=== PATIENT | female | born 1950 | race Caucasian/White ===

== ENCOUNTER 2018-03-26 08:45 | Emergency (ER) | payer MEDICARE, OTHER, SELFPAY ==
[2018-03-26 08:46] VITALS: BP 179/76; PULSE 83; RESP 18; TEMP 36.5; O2SAT 97; BMI 37.8
--- NOTE | 2018-03-26 08:56 | EKG12_ITS ---
Test Reason : PALPS Blood Pressure : / mmHG Vent. Rate : 080 BPM Atrial Rate : 080 BPM P-R Int : 146 ms QRS Dur : 108 ms QT Int : 388 ms P-R-T Axes : 055 000 031 degrees QTc Int : 447 ms Normal sinus rhythm Low voltage QRS (LIMB LEADS) Confirmed by DELFINA LAM, ANNA ([id number]), food expeditor RUTH HENSLEY ([id number]) on 03/29/2018 2:36:33 PM Referred By: VIRGINIE Confirmed By:ANNA MATHIS MD
--- NOTE | 2018-03-26 08:56 | RAD_ITS ---
STUDY: X-RAY CHEST REASON FOR EXAM: Female, 67 years old. Shortness of breath TECHNIQUE: Single AP portable view of the chest. COMPARISON: None. FINDINGS: There are monitoring devices. There are left lower lung increased densities with small pleural effusion. There is right midlung granuloma. There is borderline cardiomegaly. Normal mediastinum and bertrand. Normal visualized pulmonary arteries. Normal visualized aortic arch and descending thoracic aorta. Normal visualized thoracic spine. Normal visualized ribs, clavicles, and shoulders. There is no demonstrated abnormality of the visualized soft tissue structures of the upper abdomen. RAD/Chest 1 View (Portable) IMPRESSION: Left lower lung infiltrate and effusion. Electronically Signed: Juanjo Benitez MD at 9:24 EDT , Service support ,
--- NOTE | 2018-03-26 09:00 | ED.VISSUMM ---
- ER Visit Summary Date of Service: 03/26/18 Chief Complaint: Palpitations, anxiety History of Present Illness: The patient is a 67 F with history of anxiety and palpitations presents to the emergency department with increasing symptoms. Patient states that she has been under significant amount of stress lately. She has macular degeneration and had injections in her eye a few months ago. She ended up with a complicated course with infection. She had been traveling back and forth to the [facility] for treatment. She was on high-dose prednisone until about 3 weeks ago. After that stopped, the patient developed shingles on her back. She has finished antivirals. She was having some increasing pain in her primary care started her on some tramadol. She also recently resumed Zoloft 2 days ago and had her levothyroxine increased. She states since increasing this and starting the Zoloft, she is having increasing heart palpitations. She has no chest pain. She denies dyspnea. She has no orthopnea. She denies any other systemic symptoms. Physical Examination: Vital signs reviewed General: Well-nourished, well-developed Head: Normocephalic, atraumatic Eyes: Pupils equal and reactive, extraocular muscles intact Neck, supple, no lymphadenopathy Heart: Regular rate and rhythm Respiratory: No distress, clear bilaterally Abdomen: Soft, nontender, nondistended, no peritoneal signs Back: Nontender Extremities: Nontender, no edema, no cords Skin: Normal color no rash Neuro: Alert and oriented, no focal or lateralizing deficits Test Results: [] Emergency Department Course and Treatment: The patient presents with symptomatic palpitations. I do feel that this is likely secondary to her increased medication both the Zoloft and the Synthroid. EKG shows normal sinus rhythm without acute ischemic change. There is no prolonged QT or WW. I did obtain a chest x-ray which was read is concerning for a left lower lobe infiltrate with effusion. I did discuss this with the patient. She has had no cough or shortness of breath. She has had 3 months of left-sided rib pain after sneezing. With this, I did obtain a CTA of her chest to rule out malignancy. This does show multiple nodules and bronchiectasis, but no pneumonia, no blood clot, no mass, or other dangerous process. I did enrollment counselor the patient that she is going to need follow-up for her lung nodules with likely repeat x-ray and will need to follow-up with primary care. She did have a few PVCs on the monitor, but they were not prolonged. Patient is resting comfortably. I do feel that she is safe for outpatient therapy. Treatment Plan: [] Disposition: Discharge Impression: 1. Symptomatic palpitations 2. Granulomatous lung disease This note was generated with [employer] dictation software. It may contain incorrect words, spelling, and punctuation that were not noted in review of the chart prior to signing ED Disposition - Plan for ED Patient: Chief Complaint: Palpitations Instructions: ED Palpitations Referrals: Darion Serrano MD [Primary Care Provider] -
--- NOTE | 2018-03-26 09:01 | NURSING ---
NO LW OR POA
[2018-03-26] MEDS: 0.9% Normal Saline 1,000 ML 1000 ML IV (09:10)
[2018-03-26 09:17] LABS: Absolute Lymphocyte Count 1.35 X10^3/ul (0.83-4.51); Absolute Neutrophil Count 4.4 X10^3/uL (2.0-7.7); Basophil# 0.03 X10^3/uL; Basophil% 0.5 % (0-1); Eosinophil# 0.04 X10^3/uL; Eosinophils% 0.6 % (0-5); Hematocrit 40.1 % (37-47); Hemoglobin 13.5 g/dl (12.0-15.0); Lymphocyte # 1.35 X10^3/ul (4.0); Lymphocyte % 21.4 % (19-41); Mean Corp Hgb Conc 33.7 g/gl (32-36); Mean Corpuscular Hgb 30.4 pg (27.0-32.0); Mean Corpuscular Volume 90.3 fL (81-99); Mean Platelet Vol. 9.6 fl (6.2-12.0); Monocyte# 0.49 X10^3/uL; Monocyte% 7.8 % (0-10); Neutrophil # 4.39 X10^3/uL (2.7-7.7); Neutrophil % 69.5 % (47-70); Platelet Count 262 K/mm3 (150-450); RBC Distribution Width CV 15.8 % (11.6-14.6); RBC Distribution Width SD 51.8 fl (35.1-43.9); Red Blood Count 4.44 M/mm3 (4.2-5.4); White Blood Count 6.3 K/mm3 (4.4-11.0)
[2018-03-26 09:22] LABS: POSITIVE COUNT NO; POSITIVE DIFFERENTIAL NO; POSITIVE MORPHOLOGY NO
--- NOTE | 2018-03-26 09:34 | CT_ITS ---
STUDY: CTA CHEST REASON FOR EXAM: Female, 67 years old. Palpitations. Rheumatoid arthritis. History of breast cancer with lumpectomy and radiation. RADIATION DOSAGE (If Supplied By Facility): CTDIvol = ( 12.96 ) mGy, DLP = ( 502.51 ) mGycm TECHNIQUE: The examination was performed with the intravenous administration of 100CC ml of Isovue 370 contrast material. Post-processing of the angiographic images was performed, with multiplanar reformation and 3D reconstruction. Individualized dose optimization techniques were used for this CT. COMPARISON: Chest x-ray. FINDINGS: Normal enhancement of the main pulmonary artery and right and left pulmonary arteries. Normal enhancement of the bilateral peripheral pulmonary arteries. There is no demonstrated pulmonary embolism. Normal thoracic aorta and visualized great vessels. There is no demonstrated aortic dissection. Normal heart and pericardium. Normal mediastinum. There are calcified right hilar lymph nodes. Normal visualized trachea and bronchi. The lungs are well expanded. There bronchiectasis with regions of the mid and lower lungs. There are patchy right mid and left lower lung opacities. There are calcified granulomas in the right upper, middle, and lower lobes. There is 0.5 cm noncalcified right lower lobe nodule , series 2 image 97/212. There is 0.5 cm subpleural nodule at the right upper lung, series 2 image 175/212. There is 0.5 cm right upper lobe nodule, series 2 image 161/212. There is 0.4 cm right upper lobe nodule, series 2 image 127/212. There is pleural fibrotic scarring of the left costophrenic angle. Postoperative change of the right breast. Normal osseous structures. Normal visualized upper abdomen. CT/CTA Chest W/WO Contrast IMPRESSION: CTA chest examination, without a demonstrated pulmonary embolism or arterial dissection. Granulomatous calcifications and noncalcified nodules in the right lung. Bronchiectasis with right mid and left lower lung infiltrates or atelectasis. Electronically Signed: Juanjo Benitez MD at 10:37 EDT , Service support ,
[2018-03-26 09:40] LABS: ALB/GLOB Ratio 0.8 RATIO (0.9-2.4); AST(SGOT) 25 U/L (15-37); Alanine Aminotransfer ALT/SGPT 23 U/L (13-56); Albumin, Serum 3.3 g/dL (3.2-5.0); Alkaline Phosphatase 128 U/L (45-117); Anion Gap 6 (5-15); BUN 9 mg/dL (7-18); BUN/Creat Ratio 12.2 RATIO (10-20); Calcium,Total 8.8 mg/dL (8.5-10.1); Chloride 106 mmol/L (98-107); Creatinine, Serum 0.74 mg/dL (0.55-1.02); EST Glomerular Filtration Rate 83 mL/min (>60); Est Glom Filt Rate - Afr Amer 100 mL/min (>60); Estimated Creatinine Clearance 38.14 ml/min; Glucose 101 mg/dL (74-106); Potassium 4.1 mmol/L (3.5-5.1); Protein, Total 7.3 g/dL (6.4-8.2); Sodium Level 139 mmol/L (136-145); Thyroid Stim Hormone (TSH) 2.84 uIU/mL (0.358-3.74)
[2018-03-26 11:00] VITALS: BP 165/80; PULSE 80; PULSE 88; RESP 14; O2SAT 99
== END 2018-03-26 11:01 | disposition home or self-care (01) ==
PROVIDERS: Emergency Provider Emergency Medicine
DX: R00.2 Palpitations (principal); I49.3 Ventricular premature depolarization; J98.4 Other disorders of lung; H35.30 Unspecified macular degeneration; F41.9 Anxiety disorder, unspecified; Z79.899 Other long term (current) drug therapy
CPT/HCPCS: 71045; 71275; 80053; 84443; 84484; 85025; 93005; 99284; J7030; Q9967; A4216

== ENCOUNTER → 2021-02-10 10:19 | Outpatient (CLI) | payer MEDICARE, OTHER, SELFPAY ==
--- NOTE | 2021-02-10 10:27 | RAD_ITS ---
STUDY: X-RAY CHEST REASON FOR EXAM: Female, 70 years old. Pain TECHNIQUE: PA and lateral views of the chest. COMPARISON: 03/26/18 FINDINGS: The lungs are clear and expanded. There may be a small left pleural effusion and/or atelectasis. There is elevation of the left hemidiaphragm. Normal size heart. Normal mediastinum and bertrand. Normal visualized pulmonary arteries. Normal visualized aortic arch and descending thoracic aorta. Normal visualized thoracic spine. Normal visualized ribs, clavicles, and shoulders. There is no demonstrated abnormality of the visualized soft tissue structures of the upper abdomen. RAD/Chest PA and Lateral IMPRESSION: There may be a small left pleural effusion and/or atelectasis. The lungs are clear. Electronically Signed: Faraz Renteria MD at 15:02 EDT Tel , Service support ,
[2021-02-10 12:33] LABS: Erythrocyte Sedimentation Rate 14 mm/hr (0-30)
[2021-02-10 12:34] LABS: Absolute Neutrophil Count 4.6 X10^3/uL (2.0-7.7); Basophil# 0.06 X10^3/uL; Basophil% 0.9 % (0-1); Eosinophil# 0.08 X10^3/uL; Eosinophils% 1.2 % (0-5); Hematocrit 43.5 % (37-47); Hemoglobin 13.8 g/dL (12.0-15.0); Mean Corp Hgb Conc 31.7 g/dL (32-36); Mean Corpuscular Hgb 30.5 pg (27.0-32.0); Mean Corpuscular Volume 96.2 fL (81-99); Monocyte# 0.46 X10^3/uL; Monocyte% 6.9 % (0-10); NRBC Flagged by Analyzer 0 % (0-5); Neutrophil # 4.64 X10^3/uL (2.7-7.7); Neutrophil % 69.7 % (47-70); Platelet Count 305 K/mm3 (150-450); RBC Distribution Width CV 13.6 % (11.6-14.6); RBC Distribution Width SD 47.7 fl (35.1-43.9); Red Blood Count 4.52 M/mm3 (4.2-5.4); White Blood Count 6.7 K/mm3 (4.4-11.0)
[2021-02-10 12:44] LABS: ALB/GLOB Ratio 0.9 RATIO (0.9-2.4); AST(SGOT) 23 U/L (15-37); Alanine Aminotransfer ALT/SGPT 15 U/L (13-56); Albumin, Serum 3.6 g/dL (3.2-5.0); Alkaline Phosphatase 115 U/L (45-117); Anion Gap 8 (5-15); BUN 11 mg/dL (7-18); BUN/Creat Ratio 15.3 RATIO (10-20); CRP 5.17 mg/L (0.0-3.0); Calcium,Total 9.1 mg/dL (8.5-10.1); Chloride 106 mmol/L (98-107); Creatinine, Serum 0.72 mg/dL (0.55-1.02); EST Glomerular Filtration Rate 85 mL/min (>60); Est Glom Filt Rate - Afr Amer 102 mL/min (>60); Globulin 3.8 g/dL (2.2-4.2); Glucose 84 mg/dL (74-106); Potassium 3.9 mmol/L (3.5-5.1); Protein, Total 7.4 g/dL (6.4-8.2); Sodium Level 141 mmol/L (136-145)
[2021-02-10 13:09] LABS: Hepatitis B Surface Antibody Non-Reactive; Hepatitis B Surface Antigen Non-Reactive (Nonreactive); Hepatitis C Antibody Non-Reactive (Nonreactive)
[2021-02-11 17:05] LABS: ANTINUCLEAR ANTIBODIES DIRECT Positive (Negative)
[2021-02-14 20:08] LABS: QNTFERON TB Mitogen Value > 10.00 IU/mL (.); QNTFERON TB1+ Ag Value 0.24 IU/mL (.); QNTFERON TB2+ Ag Value 0.14 IU/mL (.)
[2021-02-14 20:41] LABS: CCP IgG Antibodies 240 units (0-19); QNTIFERON TB Positive Criteria Negative (Negative)
== END ==
PROVIDERS: Referring Provider Internal Medicine Rheumatology; Visit Provider Internal Medicine Rheumatology
DX: M05.79 Rheumatoid arthritis with rheumatoid factor of multiple sites without organ or systems involvement (principal); M79.7 Fibromyalgia; M17.0 Bilateral primary osteoarthritis of knee; M21.41 Flat foot [pes planus] (acquired), right foot; M47.892 Other spondylosis, cervical region; H35.30 Unspecified macular degeneration; E03.9 Hypothyroidism, unspecified; Z79.899 Other long term (current) drug therapy
CPT/HCPCS: 36415; 71046; 80053; 85025; 85652; 86038; 86140; 86200; 86431; 86480; 86706; 86803; 87340

== ENCOUNTER 2021-03-08 13:48 | Emergency (ER) | payer MEDICARE, OTHER, SELFPAY ==
[2021-03-08 13:49] VITALS: BP 159/99; PULSE 101; RESP 20; TEMP 36.3; O2SAT 95; BMI 40.4
--- NOTE | 2021-03-08 14:14 | EKG12_ITS ---
Test Reason : CP Blood Pressure : / mmHG Vent. Rate : 094 BPM Atrial Rate : 098 BPM P-R Int : 144 ms QRS Dur : 106 ms QT Int : 352 ms P-R-T Axes : 042 -12 025 degrees QTc Int : 440 ms Sinus rhythm with Premature atrial complexes Otherwise normal ECG Confirmed by DELFINA LAM, ANNA ([id number]), assignment desk editor FABIO STARR ([id number]) on 03/11/2021 11:12:37 AM Referred By: CHAU Confirmed By:ANNA MATHIS MD
--- NOTE | 2021-03-08 14:14 | CT_ITS ---
STUDY: CT ABDOMEN AND PELVIS WITH CONTRAST REASON FOR EXAM: Female, 70 years old. epigastric pain RADIATION DOSAGE (If Supplied By Facility): CTDIvol = ( 15.75 ) mGy, DLP = ( 1844.65 ) mGycm TECHNIQUE: Transaxial images were obtained from the dome of the diaphragm to the symphysis pubis without oral contrast. IV 100ML ISOVUE 370 was administered. Sagittal and coronal images were reconstructed. Individualized dose optimization techniques were used for this CT. COMPARISON: None. FINDINGS: Limited views through the lower chest show mild fibrotic changes in the lungs. A few scattered pulmonary nodules no larger than a few millimeters, are stable since previous exam. Normal liver. There is non-visualization of the gallbladder, which may be secondary to either contraction or a prior cholecystectomy. There are multiple benign calcified granulomata of the spleen. There is diffuse atrophy of the pancreas. Normal bilateral adrenal glands. No acute abnormalities of the kidneys. Both kidneys are mildly to moderately small consistent with chronic atrophy. No hydronephrosis. No stones. Bilateral probable parapelvic cysts. Evaluation of the GI tract is limited by absence of oral contrast. Cannot exclude stomach wall thickening. No dilated loops of bowel or evidence for obstruction. Cannot exclude segmental thickening of the faith of the small or large bowel. Cannot exclude enteritis or colitis. Moderate diffuse fecal retention. Diverticulosis without definite diverticulitis. Appendix within normal limits. Normal abdominal aorta. Normal inferior vena cava. Normal retroperitoneum. Normal urinary bladder. There is atrophy of the uterus. There is a 10 cm fluid density mass in the pelvis to the left of midline consistent with ovarian/adnexal cyst. Suggest further evaluation with pelvic ultrasound. Normal abdominal wall. There are diffuse degenerative changes of the visualized lumbar spine. 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 Suggest pelvic ultrasound for further evaluation. No other acute abnormalities. Evaluation of the GI tract is limited without oral contrast, neither enteritis or colitis excluded. Probable [id number] chronic renal atrophy. Electronically Signed: Aj Underwood MD at 16:51 EDT , Service support ,
--- NOTE | 2021-03-08 14:16 | EDS_ITS ---
HPI HPI - GI History of Present Illness Chief Complaint: Chest Pain Informant: patient Abdominal Pain/Flank Pain Onset: - (4 years) Context: Sudden Onset (seems random) Timing: Intermittent and Lasts (3-4 min) Quality: - (tightness) Location: Epigastric (w/ radiation into both shoulders/upper back) Current Severity: Mild Maximum Severity: Moderate Worsened by: Nothing Relieved by: Nothing Nausea/Vomiting/Emesis GI Symptom: Negative for Nausea and Vomiting Diarrhea/Melena/Hematochezia GI Symptom: Negative for Diarrhea, Melena and Hematochezia Associated Symptoms Associated Symptoms: Negative for Dysuria, Frequency and Hematuria Narrative Narrative: Patient states she has been having episodes of 3 or 4 minutes of epigastric discomfort for the last 4 years. She states in the past week it has become more frequent significantly but not different. Not associated with eating or nausea/vomiting. She had a remote cholecystectomy. She states she also noticed that 4 years ago she remembers having an episode where she sneezed really hard and felt some sharp pains in her left upper quadrant suddenly, that radiated to her left shoulder. She cannot remember temporally how this related to the current symptoms. She also notes that she recently had a chest x-ray done by one of her doctors as a screening x-ray that happened to show a pleural effusion and she was not given any other information about it. [facility] Medical History (Updated 03/08/21 @ 18:[address] Juanjo Galvin MD) Anxiety Hypothyroidism Rheumatoid arthritis Home Medications Ciprofloxacin 0.3% 1 drp RIGHT EYE 4X/DAY 03/26/18 [History Last Taken Unknown] levothyroxine 125 mcg PO DAILY 03/26/18 [History Last Taken Unknown] lorazepam 1 mg PO TID PRN PRN 03/26/18 [History Last Taken Unknown] prednisoLONE eye drops (1 mL) 1 drp RIGHT EYE 4X/DAY 03/26/18 [History Last Ta scarlett Unknown] tramadol 100 mg PO Q4H PRN PRN 03/26/18 [History Last Taken Unknown] Allergy/AdvReac Type Severity Reaction Status Date / Time No Known Allergies Allergy Verified 03/08/21 13:48 Surgical History History of cholecystectomy Social History Smoking Status: Never smoker ROS ROS ED Constitutional Constitutional ED: Denies chills or fever(s) Eyes Eyes: Denies change in vision or diplopia ENT ENT ED: Denies rhinorrhea or sore throat Cardiovascular Cardiovascular: Denies chest pain or palpitations Respiratory/Chest Respiratory/Chest: Denies cough or dyspnea Gastrointestinal Gastrointestinal: Reports abdominal pain; Denies diarrhea, melena, nausea or vomiting Genitourinary Genitourinary ED: Denies dysuria or hematuria Musculoskeletal Musculoskeletal: Reports back pain; Denies neck pain Integumentary Denies abscess or rash Neurologic Neurologic: Denies headache(s), paresthesias or weakness Psychiatric Psychiatric: Denies anxiety or suicidal thoughts EXAM Physical Exam Const Vital Signs: 03/08/21 13:49 03/08/21 18:00 Temperature 97.4 F L Temperature Source Temporal Pulse Rate 101 H 75 Respiratory Rate 20 H 16 Blood Pressure 159/99 H 136/72 H Blood Pressure Mean 119 93 Pulse Ox 95 97 Oxygen Delivery Method Room Air Room Air Positive well nourished and well developed General Appearance ED: well developed and NAD HEENT Reports moist mucous membranes normocephalic and atraumatic Eyes PERRL and EOMs intact bilaterally Neck full ROM and supple Resp normal respiratory effort and clear to auscultation bilaterally Cardio regular rate, regular rhythm and no murmurs GI non-distended Auscultation: normoactive bowel sounds Palpation: soft and tender epigastric (mild) and LUQ (mild); Negative for guarding, hernia or rebound tenderness present Back/Spine no CVA tenderness General Back: other FROM Extremity normal to inspection Extremity Narrative: Severe ulnar deviation at the metacarpophalangeal joints of both hands General Extremety ED: Negative for edema, pulses abnormal or tenderness General Extremity: Negative for edema or pulses abnormal Neuro oriented x3, CN's II-XII intact bilaterally and no sensory deficits noted Sensorium / Orientation: awake and alert Motor Exam: strength 5/5 throughout Skin no rashes or lesions noted and no wounds Rashes: no rashes MDM MDM MDM Narrative Medical decision making narrative: Patient states she had history of a pleural effusion that was found for unknown reasons, as well as these nonspecific abdominal symptoms. The abdominal symptoms sound functional, but given her age and the pleural effusion she describes, I obtained a CT. It shows a 10 cm cystic mass in the pelvis just left of midline which could be consistent with an adnexal etiology/cyst. Patient states she has a history of ovarian cysts in the past and [facility] here in [place]. Interestingly, on CT here, it shows no pleural effusion. However I did discuss with the patient possibility that this could represent a malignancy and the need for close outpatient follow-up. I discussed with the enterprise account executive on- call for her practice, she is in agreement, and the patient will follow up closely after the weekend. Of note, radiology recommended ultrasound. That service is not available at the hospital at the hour that the patient is here right now. More, do I think the patient has ovarian torsion as she has no pain in this area nor tenderness. Furthermore, it is unknown if her chronically recurring and worsening upper abdominal symptoms are related to this or not. Lab Data Attestation: I reviewed the patient's lab results. Labs: Laboratory Results - last 24 hr 03/08/21 03/08/21 03/08/21 14:10 14:30 14:30 WBC 6.9 RBC 4.49 Hgb 13.8 Hct 42.7 MCV 95.1 MCH 30.7 MCHC 32.3 RDW Std Deviation 47.4 H RDW Coeff of Jena 13.6 Plt Count 265 MPV 10.3 Immature Gran % (Auto) 0.300 Neut % (Auto) 79.5 H Lymph % (Auto) 14.4 L [place] % (Auto) 4.5 Eos % (Auto) 0.6 Baso % (Auto) 0.7 Absolute Neuts (auto) 5.5 Absolute Lymphs (auto) 1.00 Nucleated RBC % 0 Sodium 139 Potassium 3.8 Chloride 108 H Carbon Dioxide 27.0 Anion Gap 4 L BUN 12 Creatinine 0.78 Estim Creat Clear Calc 36.53 Est GFR (MDRD) Af Amer 93 Est GFR (MDRD) Non-Af 77 BUN/Creatinine Ratio 15.3 Glucose 111 H Calcium 8.8 Total Bilirubin 0.70 AST 19 ALT 19 Alkaline Phosphatase 101 Troponin I < 0.015 Total Protein 7.1 Albumin 3.3 Globulin 3.8 Albumin/Globulin Ratio 0.9 Lipase 53 L TSH Urine Color Yellow Urine Clarity Clear Urine pH 6.0 Ur Specific [place] 1.010 Urine Protein Negative Urine Glucose (UA) Normal Urine Ketones Negative Urine Occult Blood Negative Urine Nitrite Negative Urine Bilirubin Negative Urine Urobilinogen Normal Ur Leukocyte Esterase Negative Urine RBC 0 SEEN Urine WBC 0 SEEN Ur Squamous Epith Cells 0-5 SEEN Urine Bacteria 0 SEEN Urine Mucus 0 SEEN 03/08/21 14:30 WBC RBC Hgb Hct MCV MCH MCHC RDW Std Deviation RDW Coeff of Jena Plt Count MPV Immature Gran % (Auto) Neut % (Auto) Lymph % (Auto) [place] % (Auto) Eos % (Auto) Baso % (Auto) Absolute Neuts (auto) Absolute Lymphs (auto) Nucleated RBC % Sodium Potassium Chloride Carbon Dioxide Anion Gap BUN Creatinine Estim Creat Clear Calc Est GFR (MDRD) Af Amer Est GFR (MDRD) Non-Af BUN/Creatinine Ratio Glucose Calcium Total Bilirubin AST ALT Alkaline Phosphatase Troponin I Total Protein Albumin Globulin Albumin/Globulin Ratio Lipase TSH 4.24 H Urine Color Urine Clarity Urine pH Ur Specific [place] Urine Protein Urine Glucose (UA) Urine Ketones Urine Occult Blood Urine Nitrite Urine Bilirubin Urine Urobilinogen Ur Leukocyte Esterase Urine RBC Urine WBC Ur Squamous Epith Cells Urine Bacteria Urine Mucus Radiography Diagnostic Testing: Radiology Impression Abdomen/Pelvis CT 03/08/21 14:14 IMPRESSION: 10 cm probable left DRY CAN TENDER cystic mass. Suggest pelvic ultrasound for further evaluation. No other acute abnormalities. Evaluation of the GI tract is limited without oral contrast, neither enteritis or colitis excluded. Probable [id number] chronic renal atrophy. Electronically Signed: Aj Underwood MD at 16:51 EDT , Service support , EKG Initial EKG: Attestation: I personally reviewed and interpreted this EKG as follows: Interpretation: Sinus Rhythm and No Acute Injury Pattern Discharge Plan Triage Chief Complaint: Chest Pain ED Provider: Juanjo Galvin Dx/Rx/DC Orders Clinical Impression: Intermittent epigastric abdominal pain, Ovarian cyst, left Instructions: ED Ovarian Cyst, ED Epigastric Pain (Uncertain Cause) Prescriptions: No Action tramadol 50 MG tablet 100 mg PO Q4H PRN PRN (Reason: Pain) RF: 0 levothyroxine 125 MCG tablet 125 mcg PO DAILY RF: 0 lorazepam 1 MG tablet 1 mg PO TID PRN PRN (Reason: Anxiety) RF: 0 Ciprofloxacin 0.3% 1 DROP 1 drp Right Eye 4X/DAY RF: 0 prednisoLONE eye drops (1 mL) 1 DROP 1 drp Right Eye 4X/DAY RF: 0 Primary Care Provider: Td Garcia NP Referrals: [facility] [employer] [facility] [place] [Provider Group] - 2 Days (Call for appointment on Wednesday, they will get you in [place]) Td Garcia MANAGER PULMONARY, MANAGER PULMONARY-C [Primary Care Provider] - Disposition Disposition: Home, self care
[2021-03-08 14:38] LABS: Bacteria 0 SEEN /hpf (None Seen); Color, Urine Yellow (Yellow); Glucose, Dipstick Normal (Normal); Ketone-Dipstick Negative (Negative); Leukocyte Esterase-Dipstick Negative /ul (Negative); Mucous, Urine 0 SEEN /hpf (<or=2+); Nitrite-Dipstick Negative (Negative); Occult Blood-Urine Negative /ul (Negative); Protein-Dipstick Negative (Negative); Red Blood Cells-Urine 0 SEEN /hpf (0-5); Urine Bilirubin Dipstick Negative (Negative); Urine Clarity Clear (Clear); Urine Urobilinogen Normal (Normal); White Blood Cells 0 SEEN /hpf (0-5)
[2021-03-08 14:38] LABS: Absolute Neutrophil Count 5.5 X10^3/uL (2.0-7.7); Basophil# 0.05 X10^3/uL; Basophil% 0.7 % (0-1); Eosinophil# 0.04 X10^3/uL; Eosinophils% 0.6 % (0-5); Hematocrit 42.7 % (37-47); Hemoglobin 13.8 g/dL (12.0-15.0); Lymphocyte % 14.4 % (19-41); Mean Corp Hgb Conc 32.3 g/dL (32-36); Mean Corpuscular Hgb 30.7 pg (27.0-32.0); Mean Corpuscular Volume 95.1 fL (81-99); Mean Platelet Vol. 10.3 fl (6.2-12.0); Monocyte# 0.31 X10^3/uL; Monocyte% 4.5 % (0-10); NRBC Flagged by Analyzer 0 % (0-5); Neutrophil # 5.52 X10^3/uL (2.7-7.7); Neutrophil % 79.5 % (47-70); Platelet Count 265 K/mm3 (150-450); RBC Distribution Width CV 13.6 % (11.6-14.6); RBC Distribution Width SD 47.4 fl (35.1-43.9); Red Blood Count 4.49 M/mm3 (4.2-5.4); White Blood Count 6.9 K/mm3 (4.4-11.0)
[2021-03-08] MEDS: Dicyclomine 10 MG Capsule 20 MG PO (14:41)
[2021-03-08] MEDS: 0.9% Normal Saline 1,000 ML 1000 ML IV (14:42)
[2021-03-08 14:44] LABS: Squamous Epithelial Cells - UA 0-5 SEEN /hpf (5-10)
[2021-03-08 14:59] LABS: ALB/GLOB Ratio 0.9 RATIO (0.9-2.4); AST(SGOT) 19 U/L (15-37); Alanine Aminotransfer ALT/SGPT 19 U/L (13-56); Albumin, Serum 3.3 g/dL (3.2-5.0); Alkaline Phosphatase 101 U/L (45-117); Anion Gap 4 (5-15); BUN 12 mg/dL (7-18); BUN/Creat Ratio 15.3 RATIO (10-20); Calcium,Total 8.8 mg/dL (8.5-10.1); Chloride 108 mmol/L (98-107); Creatinine, Serum 0.78 mg/dL (0.55-1.02); EST Glomerular Filtration Rate 77 mL/min (>60); Est Glom Filt Rate - Afr Amer 93 mL/min (>60); Estimated Creatinine Clearance 36.53 ml/min; Globulin 3.8 g/dL (2.2-4.2); Glucose 111 mg/dL (74-106); Lipase 53 U/L (73-393); Potassium 3.8 mmol/L (3.5-5.1); Protein, Total 7.1 g/dL (6.4-8.2); Sodium Level 139 mmol/L (136-145)
[2021-03-08 17:15] LABS: Thyroid Stim Hormone (TSH) 4.24 uIU/mL (0.358-3.74)
[2021-03-08 18:00] VITALS: BP 136/72; PULSE 75; RESP 16; O2SAT 97
== END 2021-03-08 18:57 | disposition home or self-care (01) ==
PROVIDERS: Emergency Provider Emergency Medicine; PCP Nurse Practitioner Family
DX: R10.13 Epigastric pain (principal); N83.202 Unspecified ovarian cyst, left side; R07.9 Chest pain, unspecified; M06.9 Rheumatoid arthritis, unspecified; E03.9 Hypothyroidism, unspecified; F41.9 Anxiety disorder, unspecified; Z79.890 Hormone replacement therapy; Z79.899 Other long term (current) drug therapy; Z90.49 Acquired absence of other specified parts of digestive tract
CPT/HCPCS: 74177; 80053; 81001; 83690; 84443; 84484; 85025; 93005; 96360; 99284; J7030; Q9967; A4216

== ENCOUNTER → 2021-04-22 10:34 | Outpatient (CLI) | payer MEDICARE, OTHER, SELFPAY ==
[2021-04-22 12:33] LABS: Absolute Lymphocyte Count 1.33 X10^3/uL (0.83-4.51); Absolute Neutrophil Count 4.5 X10^3/uL (2.0-7.7); Basophil# 0.06 X10^3/uL; Basophil% 0.9 % (0-1); Eosinophil# 0.15 X10^3/uL; Eosinophils% 2.3 % (0-5); Hematocrit 39.3 % (37-47); Hemoglobin 12.5 g/dL (12.0-15.0); Lymphocyte # 1.33 X10^3/ul (0.83-4.51); Lymphocyte % 20.1 % (19-41); Mean Corp Hgb Conc 31.8 g/dL (32-36); Mean Corpuscular Hgb 31.5 pg (27.0-32.0); Monocyte# 0.51 X10^3/uL; Monocyte% 7.7 % (0-10); NRBC Flagged by Analyzer 0 % (0-5); Neutrophil # 4.54 X10^3/uL (2.7-7.7); Neutrophil % 68.7 % (47-70); Platelet Count 257 K/mm3 (150-450); RBC Distribution Width CV 14.9 % (11.6-14.6); RBC Distribution Width SD 53.5 fl (35.1-43.9); Red Blood Count 3.97 M/mm3 (4.2-5.4); White Blood Count 6.6 K/mm3 (4.4-11.0)
[2021-04-22 12:44] LABS: ALB/GLOB Ratio 0.9 RATIO (0.9-2.4); AST(SGOT) 20 U/L (15-37); Alanine Aminotransfer ALT/SGPT 20 U/L (13-56); Albumin, Serum 3.4 g/dL (3.2-5.0); Alkaline Phosphatase 97 U/L (45-117); Anion Gap 6 (5-15); BUN 20 mg/dL (7-18); BUN/Creat Ratio 23.6 RATIO (10-20); Calcium,Total 8.9 mg/dL (8.5-10.1); Chloride 107 mmol/L (98-107); Creatinine, Serum 0.85 mg/dL (0.55-1.02); EST Glomerular Filtration Rate 70 mL/min (>60); Est Glom Filt Rate - Afr Amer 85 mL/min (>60); Globulin 3.6 g/dL (2.2-4.2); Glucose 80 mg/dL (74-106); Potassium 4.4 mmol/L (3.5-5.1); Sodium Level 139 mmol/L (136-145)
== END ==
PROVIDERS: PCP Nurse Practitioner Family; Referring Provider Internal Medicine Rheumatology; Visit Provider Internal Medicine Rheumatology
DX: M05.79 Rheumatoid arthritis with rheumatoid factor of multiple sites without organ or systems involvement (principal); M79.7 Fibromyalgia; M17.0 Bilateral primary osteoarthritis of knee; M21.41 Flat foot [pes planus] (acquired), right foot; M21.42 Flat foot [pes planus] (acquired), left foot; M47.892 Other spondylosis, cervical region; H35.30 Unspecified macular degeneration; E03.9 Hypothyroidism, unspecified; Z79.899 Other long term (current) drug therapy; Z85.3 Personal history of malignant neoplasm of breast
CPT/HCPCS: 36415; 80053; 85025

== ENCOUNTER → 2021-07-09 09:47 | Outpatient (CLI) | payer MEDICARE, OTHER, SELFPAY ==
[2021-07-09 12:17] LABS: Absolute Lymphocyte Count 1.26 X10^3/uL (0.83-4.51); Absolute Neutrophil Count 4.3 X10^3/uL (2.0-7.7); Basophil# 0.03 X10^3/uL; Basophil% 0.5 % (0-1); Eosinophil# 0.11 X10^3/uL; Eosinophils% 1.8 % (0-5); Hematocrit 41.2 % (37-47); Hemoglobin 13.4 g/dL (12.0-15.0); Lymphocyte # 1.26 X10^3/ul (0.83-4.51); Lymphocyte % 20.5 % (19-41); Mean Corp Hgb Conc 32.5 g/dL (32-36); Mean Corpuscular Hgb 32.5 pg (27.0-32.0); Mean Platelet Vol. 11.3 fl (6.2-12.0); Monocyte% 6.5 % (0-10); NRBC Flagged by Analyzer 0 % (0-5); Neutrophil # 4.32 X10^3/uL (2.7-7.7); Neutrophil % 70.4 % (47-70); Platelet Count 268 K/mm3 (150-450); RBC Distribution Width CV 14.4 % (11.6-14.6); RBC Distribution Width SD 51.8 fl (35.1-43.9); Red Blood Count 4.12 M/mm3 (4.2-5.4); White Blood Count 6.1 K/mm3 (4.4-11.0)
[2021-07-09 12:47] LABS: ALB/GLOB Ratio 0.9 RATIO (0.9-2.4); AST(SGOT) 46 U/L (15-37); Alanine Aminotransfer ALT/SGPT 27 U/L (13-56); Albumin, Serum 3.5 g/dL (3.2-5.0); Alkaline Phosphatase 107 U/L (45-117); Anion Gap 6 (5-15); BUN 14 mg/dL (7-18); BUN/Creat Ratio 17.4 RATIO (10-20); Chloride 106 mmol/L (98-107); Creatinine, Serum 0.81 mg/dL (0.55-1.02); EST Glomerular Filtration Rate 74 mL/min (>60); Est Glom Filt Rate - Afr Amer 90 mL/min (>60); Globulin 4.1 g/dL (2.2-4.2); Glucose 85 mg/dL (74-106); Potassium 4.8 mmol/L (3.5-5.1); Protein, Total 7.6 g/dL (6.4-8.2); Sodium Level 138 mmol/L (136-145)
== END ==
PROVIDERS: PCP Nurse Practitioner Family; Referring Provider Internal Medicine Rheumatology; Visit Provider Internal Medicine Rheumatology
DX: M05.79 Rheumatoid arthritis with rheumatoid factor of multiple sites without organ or systems involvement (principal); Z79.899 Other long term (current) drug therapy; M79.7 Fibromyalgia; M17.0 Bilateral primary osteoarthritis of knee; M21.41 Flat foot [pes planus] (acquired), right foot; M47.892 Other spondylosis, cervical region; H35.30 Unspecified macular degeneration; E03.9 Hypothyroidism, unspecified; Z85.3 Personal history of malignant neoplasm of breast
CPT/HCPCS: 36415; 80053; 85025

== ENCOUNTER → 2021-08-07 09:09 | Outpatient (CLI) | payer MEDICARE, OTHER, SELFPAY ==
--- NOTE | 2021-08-07 09:17 | US_ITS ---
STUDY: ABDOMINAL ULTRASOUND - RIGHT UPPER QUADRANT REASON FOR VISIT: Female, 71 years old ELEVATED LIVER ENZYMES TECHNIQUE: Ultrasound evaluation of the right upper quadrant was performed with real-time and static praod-scale imaging. TECHNICAL QUALITY: Adequate. COMPARISON: None. FINDINGS: Liver: The liver measures 15.3 cm. There is normal echogenicity of the liver. The bile ducts are within normal limits. There is hepatic color flow. The direction of portal flow is hepatopetal. There is no demonstrated mass lesion. Gallbladder: The patient is status post cholecystectomy. Common Bile Duct (C.B.D.): The common bile duct measures 3.1 mm. Pancreas: There is diffuse atrophy of the pancreas. There is increased echogenicity of the pancreas. There is no demonstrated pancreatic mass or cyst. Right Kidney: There is atrophy of the right kidney. The right kidney measures 8.7 cm x 4.6 cm x 4.1 cm. There is thinning of the renal cortex. The right cortex measures 0.7 cm. There is no demonstrated renal mass or cyst. There is no right hydronephrosis. US/Liver IMPRESSION: Atrophy of the pancreas. Atrophic changes of the right kidney. Electronically Signed: Thaddeus Palacios MD at 12:34 EDT , Service support ,
[2021-08-07 10:50] LABS: ALB/GLOB Ratio 0.8 RATIO (0.9-2.4); AST(SGOT) 16 U/L (15-37); Alanine Aminotransfer ALT/SGPT 19 U/L (13-56); Albumin, Serum 3.2 g/dL (3.2-5.0); Alkaline Phosphatase 106 U/L (45-117); Anion Gap 4 (5-15); BUN 14 mg/dL (7-18); BUN/Creat Ratio 17.6 RATIO (10-20); Calcium,Total 8.9 mg/dL (8.5-10.1); Chloride 108 mmol/L (98-107); EST Glomerular Filtration Rate 75 mL/min (>60); Est Glom Filt Rate - Afr Amer 91 mL/min (>60); Globulin 3.9 g/dL (2.2-4.2); Glucose 91 mg/dL (74-106); Potassium 3.9 mmol/L (3.5-5.1); Protein, Total 7.1 g/dL (6.4-8.2); Sodium Level 141 mmol/L (136-145)
[2021-08-14 00:07] LABS: QNTFERON TB Mitogen Value > 10.00 IU/mL (.); QNTFERON TB Nil Value 0.12 IU/mL (.); QNTFERON TB2+ Ag Value 0.13 IU/mL (.)
[2021-08-14 14:32] LABS: QNTIFERON TB Positive Criteria Negative (Negative)
== END ==
PROVIDERS: PCP Nurse Practitioner Family; Referring Provider Internal Medicine Rheumatology; Visit Provider Internal Medicine Rheumatology
DX: M05.79 Rheumatoid arthritis with rheumatoid factor of multiple sites without organ or systems involvement (principal); M17.0 Bilateral primary osteoarthritis of knee; M21.41 Flat foot [pes planus] (acquired), right foot; M79.7 Fibromyalgia; M47.892 Other spondylosis, cervical region; H35.30 Unspecified macular degeneration; E03.9 Hypothyroidism, unspecified; Z79.899 Other long term (current) drug therapy; Z85.3 Personal history of malignant neoplasm of breast
CPT/HCPCS: 36415; 76705; 80053; 86480

== ENCOUNTER → 2021-10-06 11:50 | Outpatient (CLI) | payer MEDICARE, OTHER, SELFPAY ==
[2021-10-06 15:22] LABS: Absolute Neutrophil Count 4.1 X10^3/uL (2.0-7.7); Basophil# 0.06 X10^3/uL; Eosinophils% 1.6 % (0-5); Hematocrit 40.2 % (37-47); Hemoglobin 13.1 g/dL (12.0-15.0); Lymphocyte % 24.3 % (19-41); Mean Corp Hgb Conc 32.6 g/dL (32-36); Mean Corpuscular Hgb 31.8 pg (27.0-32.0); Mean Corpuscular Volume 97.6 fL (81-99); Mean Platelet Vol. 10.8 fl (6.2-12.0); Monocyte# 0.44 X10^3/uL; Monocyte% 7.1 % (0-10); NRBC Flagged by Analyzer 0 % (0-5); Neutrophil # 4.06 X10^3/uL (2.7-7.7); Neutrophil % 65.8 % (47-70); Platelet Count 259 K/mm3 (150-450); RBC Distribution Width CV 13.6 % (11.6-14.6); RBC Distribution Width SD 48.2 fl (35.1-43.9); Red Blood Count 4.12 M/mm3 (4.2-5.4); White Blood Count 6.2 K/mm3 (4.4-11.0)
[2021-10-06 15:44] LABS: ALB/GLOB Ratio 0.8 RATIO (0.9-2.4); AST(SGOT) 17 U/L (15-37); Alanine Aminotransfer ALT/SGPT 21 U/L (13-56); Albumin, Serum 3.1 g/dL (3.2-5.0); Alkaline Phosphatase 88 U/L (45-117); Anion Gap 3 (5-15); BUN 13 mg/dL (7-18); BUN/Creat Ratio 15.9 RATIO (10-20); Calcium,Total 8.9 mg/dL (8.5-10.1); Chloride 108 mmol/L (98-107); Creatinine, Serum 0.82 mg/dL (0.55-1.02); EST Glomerular Filtration Rate 73 mL/min (>60); Est Glom Filt Rate - Afr Amer 88 mL/min (>60); Globulin 3.8 g/dL (2.2-4.2); Glucose 78 mg/dL (74-106); Potassium 4.1 mmol/L (3.5-5.1); Protein, Total 6.9 g/dL (6.4-8.2); Sodium Level 141 mmol/L (136-145)
== END ==
PROVIDERS: PCP Nurse Practitioner Family; Referring Provider Internal Medicine Rheumatology; Visit Provider Internal Medicine Rheumatology
DX: M05.79 Rheumatoid arthritis with rheumatoid factor of multiple sites without organ or systems involvement (principal); M79.7 Fibromyalgia; M17.0 Bilateral primary osteoarthritis of knee; M21.41 Flat foot [pes planus] (acquired), right foot; M47.892 Other spondylosis, cervical region; H35.30 Unspecified macular degeneration; E03.9 Hypothyroidism, unspecified; Z79.899 Other long term (current) drug therapy; Z85.3 Personal history of malignant neoplasm of breast
CPT/HCPCS: 36415; 80053; 85025

== ENCOUNTER 2022-01-16 10:26 | Outpatient (CLI) | payer MEDICARE, OTHER, SELFPAY ==
[2022-01-16 11:41] LABS: Absolute Lymphocyte Count 1.24 X10^3/uL (0.83-4.51); Absolute Neutrophil Count 3.6 X10^3/uL (2.0-7.7); Basophil# 0.06 X10^3/uL; Eosinophils% 3.5 % (0-5); Hematocrit 39.2 % (37-47); Hemoglobin 12.8 g/dL (12.0-15.0); Lymphocyte # 1.24 X10^3/ul (0.83-4.51); Lymphocyte % 21.7 % (19-41); Mean Corp Hgb Conc 32.7 g/dL (32-36); Mean Corpuscular Hgb 32.2 pg (27.0-32.0); Mean Corpuscular Volume 98.7 fL (81-99); Mean Platelet Vol. 9.9 fl (6.2-12.0); Monocyte# 0.59 X10^3/uL; Monocyte% 10.3 % (0-10); NRBC Flagged by Analyzer 0 % (0-5); Neutrophil # 3.62 X10^3/uL (2.7-7.7); Neutrophil % 63.3 % (47-70); Platelet Count 235 K/mm3 (150-450); RBC Distribution Width CV 14.1 % (11.6-14.6); RBC Distribution Width SD 50.9 fl (35.1-43.9); Red Blood Count 3.97 M/mm3 (4.2-5.4); White Blood Count 5.7 K/mm3 (4.4-11.0)
[2022-01-16 12:27] LABS: ALB/GLOB Ratio 0.9 RATIO (0.9-2.4); AST(SGOT) 19 U/L (15-37); Alanine Aminotransfer ALT/SGPT 18 U/L (13-56); Albumin, Serum 3.2 g/dL (3.2-5.0); Alkaline Phosphatase 103 U/L (45-117); Anion Gap 1 (5-15); BUN 17 mg/dL (7-18); BUN/Creat Ratio 21.5 RATIO (10-20); Chloride 107 mmol/L (98-107); Creatinine, Serum 0.79 mg/dL (0.55-1.02); EST Glomerular Filtration Rate 76 mL/min (>60); Est Glom Filt Rate - Afr Amer 91 mL/min (>60); Globulin 3.7 g/dL (2.2-4.2); Glucose 89 mg/dL (74-106); Potassium 4.3 mmol/L (3.5-5.1); Protein, Total 6.9 g/dL (6.4-8.2); Sodium Level 139 mmol/L (136-145)
== END 2022-01-16 23:59 | disposition home or self-care (01) ==
PROVIDERS: PCP Nurse Practitioner Family; Referring Provider Internal Medicine Rheumatology; Visit Provider Nurse Practitioner Family
DX: E03.9 Hypothyroidism, unspecified (principal); M05.79 Rheumatoid arthritis with rheumatoid factor of multiple sites without organ or systems involvement; M79.7 Fibromyalgia; M17.0 Bilateral primary osteoarthritis of knee; M21.40 Flat foot [pes planus] (acquired), unspecified foot; M47.892 Other spondylosis, cervical region; H35.30 Unspecified macular degeneration; Z85.3 Personal history of malignant neoplasm of breast; Z79.899 Other long term (current) drug therapy
CPT/HCPCS: 36415; 80053; 84443; 85025

== ENCOUNTER → 2022-04-17 | Outpatient (CLI) | payer MEDICARE, OTHER, SELFPAY ==
[2022-04-17 11:42] LABS: Absolute Lymphocyte Count 1.12 X10^3/uL (0.83-4.51); Absolute Neutrophil Count 3.3 X10^3/uL (2.0-7.7); Basophil# 0.03 X10^3/uL; Basophil% 0.6 % (0-1); Hematocrit 38.7 % (37-47); Hemoglobin 12.5 g/dL (12.0-15.0); Lymphocyte # 1.12 X10^3/ul (0.83-4.51); Lymphocyte % 22.3 % (19-41); Mean Corp Hgb Conc 32.3 g/dL (32-36); Mean Platelet Vol. 9.9 fl (6.2-12.0); Monocyte# 0.44 X10^3/uL; Monocyte% 8.7 % (0-10); NRBC Flagged by Analyzer 0 % (0-5); Neutrophil # 3.32 X10^3/uL (2.7-7.7); Platelet Count 237 K/mm3 (150-450); RBC Distribution Width CV 13.5 % (11.6-14.6); RBC Distribution Width SD 48.8 fl (35.1-43.9); Red Blood Count 3.91 M/mm3 (4.2-5.4)
[2022-04-17 12:13] LABS: ALB/GLOB Ratio 0.9 RATIO (0.9-2.4); AST(SGOT) 18 U/L (15-37); Alanine Aminotransfer ALT/SGPT 18 U/L (13-56); Albumin, Serum 3.2 g/dL (3.2-5.0); Alkaline Phosphatase 100 U/L (45-117); Anion Gap 3 (5-15); BUN 16 mg/dL (7-18); BUN/Creat Ratio 22.6 RATIO (10-20); Calcium,Total 8.9 mg/dL (8.5-10.1); Chloride 108 mmol/L (98-107); Creatinine, Serum 0.71 mg/dL (0.55-1.02); EST Glomerular Filtration Rate 86 mL/min (>60); Est Glom Filt Rate - Afr Amer 104 mL/min (>60); Globulin 3.4 g/dL (2.2-4.2); Glucose 88 mg/dL (74-106); Potassium 4.1 mmol/L (3.5-5.1); Protein, Total 6.6 g/dL (6.4-8.2); Sodium Level 140 mmol/L (136-145); Thyroid Stim Hormone (TSH) 0.23 uIU/mL (0.358-3.74)
== END | disposition home or self-care (01) ==
LOC: LAB 11:16
PROVIDERS: PCP Nurse Practitioner Family; Referring Provider Nurse Practitioner Family; Visit Provider Nurse Practitioner Family
DX: M05.70 Rheumatoid arthritis with rheumatoid factor of unspecified site without organ or systems involvement (principal); M79.7 Fibromyalgia; M17.0 Bilateral primary osteoarthritis of knee; M21.41 Flat foot [pes planus] (acquired), right foot; M47.892 Other spondylosis, cervical region; H35.30 Unspecified macular degeneration; E03.9 Hypothyroidism, unspecified; Z85.3 Personal history of malignant neoplasm of breast; Z79.899 Other long term (current) drug therapy
CPT/HCPCS: 36415; 80053; 84443; 85025

== ENCOUNTER → 2022-10-12 | Outpatient (CLI) | payer MEDICARE, OTHER, SELFPAY ==
[2022-10-12 15:18] LABS: Absolute Lymphocyte Count 1.39 X10^3/uL (0.83-4.51); Absolute Neutrophil Count 3.1 X10^3/uL (2.0-7.7); Basophil# 0.07 X10^3/uL; Basophil% 1.4 % (0-1); Eosinophil# 0.12 X10^3/uL; Eosinophils% 2.4 % (0-5); Hematocrit 40.8 % (37-47); Hemoglobin 13.4 g/dL (12.0-15.0); Lymphocyte # 1.39 X10^3/ul (0.83-4.51); Lymphocyte % 27.4 % (19-41); Mean Corp Hgb Conc 32.8 g/dL (32-36); Mean Corpuscular Hgb 33.2 pg (27.0-32.0); Mean Platelet Vol. 10.5 fl (6.2-12.0); Monocyte# 0.43 X10^3/uL; Monocyte% 8.5 % (0-10); NRBC Flagged by Analyzer 0 % (0-5); Neutrophil # 3.06 X10^3/uL (2.7-7.7); Neutrophil % 60.1 % (47-70); Platelet Count 253 K/mm3 (150-450); RBC Distribution Width CV 13.5 % (11.6-14.6); RBC Distribution Width SD 49.8 fl (35.1-43.9); Red Blood Count 4.04 M/mm3 (4.2-5.4); White Blood Count 5.1 K/mm3 (4.4-11.0)
[2022-10-12 15:36] LABS: ALB/GLOB Ratio 1.1 RATIO (0.9-2.4); AST(SGOT) 21 U/L (15-37); Alanine Aminotransfer ALT/SGPT 29 U/L (13-56); Albumin, Serum 3.5 g/dL (3.2-5.0); Alkaline Phosphatase 90 U/L (45-117); Anion Gap 2 (5-15); BUN 21 mg/dL (7-18); BUN/Creat Ratio 25.6 RATIO (10-20); Calcium,Total 8.9 mg/dL (8.5-10.1); Chloride 109 mmol/L (98-107); Creatinine, Serum 0.82 mg/dL (0.55-1.02); EST Glomerular Filtration Rate 72 mL/min (>60); Est Glom Filt Rate - Afr Amer 88 mL/min (>60); Globulin 3.2 g/dL (2.2-4.2); Glucose 83 mg/dL (74-106); Potassium 4.7 mmol/L (3.5-5.1); Protein, Total 6.7 g/dL (6.4-8.2); Sodium Level 140 mmol/L (136-145)
== END | disposition home or self-care (01) ==
LOC: MTLAB 11:45
PROVIDERS: PCP Nurse Practitioner Family; Referring Provider Internal Medicine Rheumatology; Visit Provider Internal Medicine Rheumatology
DX: M05.70 Rheumatoid arthritis with rheumatoid factor of unspecified site without organ or systems involvement (principal); M79.7 Fibromyalgia; M17.0 Bilateral primary osteoarthritis of knee; M21.41 Flat foot [pes planus] (acquired), right foot; M47.892 Other spondylosis, cervical region; H35.30 Unspecified macular degeneration; E03.9 Hypothyroidism, unspecified; Z85.3 Personal history of malignant neoplasm of breast; Z79.899 Other long term (current) drug therapy
CPT/HCPCS: 36415; 80053; 85025

== ENCOUNTER → 2024-07-11 | Outpatient (CLI) | payer MEDICARE, OTHER, SELFPAY ==
[2024-07-11 12:22] LABS: Absolute Lymphocyte Count 1.38 X10^3/uL (0.83-4.51); Absolute Neutrophil Count 4.3 X10^3/uL (2.0-7.7); Basophil# 0.08 X10^3/uL; Basophil% 1.3 % (0-1); Eosinophil# 0.08 X10^3/uL; Eosinophils% 1.3 % (0-5); Hematocrit 40.6 % (37-47); Hemoglobin 12.9 g/dL (12.0-15.0); Lymphocyte # 1.38 X10^3/ul (0.83-4.51); Lymphocyte % 21.9 % (19-41); Mean Corp Hgb Conc 31.8 g/dL (32-36); Mean Corpuscular Hgb 31.3 pg (27.0-32.0); Mean Corpuscular Volume 98.5 fL (81-99); Mean Platelet Vol. 10.8 fl (6.2-12.0); Monocyte# 0.45 X10^3/uL; Monocyte% 7.1 % (0-10); NRBC Flagged by Analyzer 0 % (0-5); Neutrophil % 68.1 % (47-70); Platelet Count 252 K/mm3 (150-450); RBC Distribution Width SD 54.2 fl (35.1-43.9); Red Blood Count 4.12 M/mm3 (4.2-5.4); White Blood Count 6.3 K/mm3 (4.4-11.0)
[2024-07-11 12:41] LABS: ALB/GLOB Ratio 0.9 RATIO (0.9-2.4); AST(SGOT) 21 U/L (15-37); Alanine Aminotransfer ALT/SGPT 20 U/L (13-56); Albumin, Serum 3.3 g/dL (3.2-5.0); Alkaline Phosphatase 100 U/L (45-117); Anion Gap 1 (5-15); BUN 14 mg/dL (7-18); BUN/Creat Ratio 15.1 RATIO (10-20); Calcium,Total 9.3 mg/dL (8.5-10.1); Chloride 106 mmol/L (98-107); Creatinine, Serum 0.93 mg/dL (0.55-1.02); EST Glomerular Filtration Rate 62 mL/min (>60); Est Glom Filt Rate - Afr Amer 76 mL/min (>60); Globulin 3.6 g/dL (2.2-4.2); Glucose 93 mg/dL (74-106); Potassium 4.5 mmol/L (3.5-5.1); Protein, Total 6.9 g/dL (6.4-8.2); Sodium Level 138 mmol/L (136-145)
== END | disposition home or self-care (01) ==
LOC: MTLAB 11:03
PROVIDERS: PCP Nurse Practitioner Family; Referring Provider Internal Medicine Rheumatology; Visit Provider Internal Medicine Rheumatology
DX: M05.70 Rheumatoid arthritis with rheumatoid factor of unspecified site without organ or systems involvement (principal); M79.7 Fibromyalgia; Z79.899 Other long term (current) drug therapy
CPT/HCPCS: 36415; 80053; 85025

== ENCOUNTER 2025-10-19 05:57 | Day surgery (SDC) | payer MEDICARE, OTHER, SELFPAY ==
--- NOTE | 2025-10-03 16:25 | HP.PCM_ITS ---
History and Physical Date of Admission: 10/19/25 HPI: The patient is a 75 year old female presenting for pre-operative visit. She is scheduled for hysteroscopy D&C with endometrial polyp resection, for endometrial polyp on 10/19/25. Procedure discussed along with risks, benefits and complications. Other alternatives discussed for management. Consent form signed? Yes. ? ? Past Medical History PAST MEDICAL HISTORYDiagnosisDate?Breast cancer (HCC)2012?right breast?Cyst of left ovary??Depression??Endophthalmitis??Hypothyroid??Macular degeneration??both eyes?Osteopenia??Rheumatoid arthritis? ? ? PAST SURGICAL HISTORY PAST SURGICAL HISTORYProcedureLateralityDate?ANESTH, SECTION?1981?2; vertical midline and pfann; tubal ligation?BX/EXC LYMPH NODE OPEN DEEP AXILLARY NODE?04/05/2013?INTRAOP SENTINEL LYMPH NODE ID W/DYE INJECTION?04/05/2013?LAPAROSCOPY SURG CHOLECYSTECTOMY?09/11/2015?MASTECTOMY, [id number]/29/2013?Lumpectomy?OVARIAN CYSTECTOMY UNI/BI???right and left ?OVARIAN WEDGE RESECTION???PAST SURGICAL HISTORY OF?2009?left knee replacement ?PREOP PLACEMENT NEEDLE LOC?04/05/2013?TONSILLECTOMY & ADENOIDECTOMY <AGE 10???XCAPSL CTRC RMVL INSJ IO LENS PROSTH W/O [id number]/24/2015?Cataract Extraction with PC IOL/Femto/Toric?XCAPSL CTRC RMVL INSJ IO LENS PROSTH W/O [id number]/03/2016?Cataract Extraction with PC IOL/Femto/LRI ? ? ? CURRENT MEDICATIONS Current Outpatient MedicationsMedicationSigDispenseRefill?LORazepam (ATIVAN) 0.5 mg0.5 mg two times a day.???levothyroxine (SYNTHROID) 150 mcg tabletTake 1 tablet by mouth every afternoon.???traMADol (ULTRAM) 50 mg tabletTake 50 mg by mouth three times daily as needed.???methotrexate, PF, 25 mg/mL solnone time a week.???leucovorin (LEUCOVORIN) 15 mg tabletTake 15 mg by mouth one time a week.???folic acid 800 mcg tabletTake two tablets by mouth once daily.???bevacizumab 25 mg/mL injectionOne injection in both eyes every 8 weeks.???Vit A,C,D-Fmsq-Lovlnr (PRESERVISION AREDS) 4,296 mcg-226 mg-90 mg cap?methotrexate sodium 25 mg/mL solnINJECT 0.5 MILLILITER(S) ONCE A WEEK Injection???sertraline (ZOLOFT) 25 mg tabletTake 1 tablet by mouth every afternoon. (Patient not taking: Reported on 10/03/2025)???Cholecalciferol, Vitamin D3, 125 mcg (5,000 unit) capTake 1 capsule by mouth every afternoon. (Patient not taking: Reported on 10/03/2025)???No current facility-administered medications for this visit. ? ? ALLERGIES: Patient has no known allergies. ? PERSONAL HISTORY: [Social History] [Social History] Tobacco Use ? Smoking status: Former ? ? Current packs/day: 0.00 ? ? Types: Cigarettes ? ? Start date: 03/17/1971 ? ? Quit date: 03/17/1973 ? ? Years since quittin.5 ? Smokeless tobacco: Never ? Tobacco comments: ? ? Pt smoked 2-3 cigarettes once a week for 2 years. Vaping Use ? Vaping status: Never Used Substance Use Topics ? Alcohol use: Yes ? ? Alcohol/week: 1.0 standard drink o f alcohol ? ? Types: 1 Cans of Beer (12oz ) per week ? ? Comment: very rarely ? Drug use: No ? FAMILY HISTORY: Family History 0 FAMILY HISTORY ProblemRelationAge of Onset?EmphysemaFather??Colon CancerFather??Alcohol/DrugFather?? w/ cirrhosis?No Ocular DiseaseFather ??StrokeMother??No Ocular DiseaseMother??Colon CancerPaternal Grandmother??ArthritisPaternal Grandmother??Colon CancerPaternal Aunt??Breast CancerMaternal Aunt??ArthritisOther?? cousin RA?Blood DiseaseMaternal Aunt?? leukemia ? ? REVIEW OF SYMPTOMS: GENERAL: denies fevers or chills ENDOCRINOLOGY: has not been on steroids Cardiology : denies palpitations or chest pain Respiratory: denies SOB or cough Hematology: denies history of prolonged bleeding or easy bruising or VTE Allergy: Denies history of personal or family history of allergy to anesthesia ? PHYSICAL EXAMINATION: ? VITALS: Blood pressure 130/78, pulse 74, height 149.9 cm (4' 11), weight 89.4 kg (197 lb), SpO2 99%. ? GENERAL: The patient is well nourished, well hydrated in no acute distress. , The patient is oriented to time, place, and person. NECK: Supple. No lynphadenopathy, normal thyroid, no thyromegaly. LUNGS: Clear to auscultation bilaterally. no wheezes, rhonchi or rales HEART: Regular rate and rhythm, Normal heart sounds, and No murmurs or gallops ? ? Pelvic US 09/07/25 Impression Normal appearing axial uterus that measures 53 mm x 38 mm x 40 mm. Endometrium contains fluid and measures 3.8 mm. Within the endometrium, there is a 6 x 7 x 3 mm heterogeneous area suggestive of polyp. Right ovary is not visualized. Left ovary contains an 83 x 91 x 62 mm unilocular simple cyst. ? IMPRESSION: endometrial polyp ? PLAN: The risks/benefits/alternatives and personal involved for the planned hysteroscopy D&C with polyp resection were reviewed with the patient. Her questions were answered to her satisfaction and she desires to proceed. Consent was signed. I reviewed with her postop instructions and expectations. ? ? I have reviewed and updated past medical and surgical history, medications and allergies Assessment & Plan Assessment/Plan (1) Endometrial polyp:
[2025-10-19] VITALS (9 sets, daily range): BP systolic 116–146; BP diastolic 59–67; PULSE 64–74; RESP 12–18; TEMP 36.3–36.4; O2SAT 94–97; BMI 37.4
--- OUTSIDE RECORDS SUMMARY | 2025-10-19 06:01 | XMS RPT_ITS | CCD ---
Author Organization [facility] Care Team Providers Care Clay Artisan Name Role Phone Td Garcia CNP Primary Care Provider Darion El Primary Care Provider Darion El Primary Care Provider Darion El MD Primary Care Provider [phone] Rima Corral Primary Care Provider Rima Corral Primary Care Provider Rima Corral NP Primary Care Provider [phone] Td Garcia NP Primary Care Unavailable Vellanki, Kathy Referring Unavailable Vellanki, Kathy Attending Unavailable VELLANKI, KATHY Admitting Unavailable VELLANKI, KATHY Attending Unavailable RIMA CORRAL APRN Consulting Unavailab le SHADIA CHILDERS~[id number] Primar y Care Unavailable RIMA CORRAL APRN Consulting Unavailab le VELLANKI, AKTHY Consulting Unavailable VELLANKI, KATHY Consulting Unavailable VELLANKI, KATHY Admitting Unavailable VELLANKI, KATHY Attending Unavailable RIMA CORRAL APRN Consulting Unavailab le SHADIA CHILDERS~[id number] Primar y Care Unavailable RIMA CORRAL APRN Consulting Unavailab le VELLANKI, KATHY Consulting Unavailable VELLANKI, KATHY Consulting Unavailable SHADIA CHILDERS~[phone] Primar y Care Unavailable RIMA CORRAL APRN Consulting Unavailab le VELLANKI, KATHY Admitting Unavailable VELLANKI, KATHY Attending Unavailable RIMA CORRAL APRN Consulting Unavailab le VELLANKI, KATHY Consulting Unavailable VELLANKI, KATHY Consulting Unavailable DEX, KATHY Attending Unavailable SHADIA CHILDERS~[id number], SHADIA Regan Primar y Care Unavailable RIMA CORRAL APRN Consulting Unavailab le VELLANKI, KATHY Admitting Unavailable RIMA CORRAL APRN Consulting Unavailab le VELLANKI, KATHY Consulting Unavailable VELLANKI, KATHY Consulting Unavailable JANN GODDARD Attending Unavailable RIMA CORRAL Primary Care Unavailable JANN GODDARD Attending Unavailable RIMA CORRAL Primary Care Unavailable HALILIANA, ROCÍO Referring Unavailable RIMA CORRAL Primary Care Unavailable HAURY, ROCÍO Referring Unavailable RIMA CORRAL Primary Care Unavailable HALILIANA, ROCÍO Referring Unavailable RIMA CORRAL Primary Care Unavailable ANJELICA GEORGE Attending Unavailable RIMA CORRAL Primary Care Unavailable RIMA CORRAL Primary Care Unavailable SASJANN GOODWIN Attending Unavailable JNAN GODDARD Referring Unavailable RIMA CORRAL Primary Care Unavailable JANN GODDARD Attending Unavailable AWA PATRICK Referring Unavailable RIMA CORRAL Primary Care Unavailable JANN GODDARD Attending Unavailable RIMA CORRAL Primary Care Unavailable Medications Current Medications Medication Drug Class(es) Dates Sig (Normalized) Sig (Original) benoxinate hydrochloride 4 mg/ml / fluorescein sodium 3 mg/ml ophthalmic solution (9 sources) Diagnostic Dye Start: 07-20-2024 End: 07-20-2024 fluorescein-benoxi risa 0.3-0.4 % 1 Drop (FLURESS) Start: 07-20-2024 End: 07-20-2024 1 Drop, BOTH EYES, DIRECT ED, Starting on Mel 07/20/24 at 0930, Until Mel 07/20/24 at 2129, Administer for applanation tonometry. In the event of a Fluress shortage, administer Demi-Fluor 1 drop into both eyes as directed for applanation tonometry, OPHT CLINIC MED ORDERS Start: 05-25-2024 End: 05-25-2024 fluorescein-benoxinate 0.3-0 .4 % 1 Drop (FLURESS) Start: 03-23-2024 End: 03-23-2024 fluorescein-benoxinate 0.3-0 .4 % 1 Drop (FLURESS) Start: 01-27-2024 End: 01-27-2024 fluorescein-benoxinate 0.3-0 .4 % 1 Drop (FLURESS) Start: 09-23-2023 End: 09-24-2023 fluorescein-benoxinate 0.25- 0.4 % 1 Drop (FLURESS) Start: 07-29-2023 End: 07-29-2023 fluorescein-benoxinate 0.25- 0.4 % 1 Drop (FLURESS) Start: 01-21-2023 End: 01-22-2023 fluorescein-benoxinate 0.25- 0.4 % 1 Drop (FLURESS) Start: 12-10-2022 End: 12-11-2022 fluorescein-benoxinate 0.25- 0.4 % 1 Drop (FLURESS) 16 ml bevacizumab 25 mg/ml injection (20 sources) Vascular Endothelial Growth Factor Inhibitor bevacizumab 25 mg/mL injection One injection in both eyes every 8 weeks. Active bevacizumab 25 m g/mL injection One injection in both eyes every 8 weeks. 0 Active Comment on above: One injection in bot h eyes every 8 weeks. cholecalciferol 0.125 mg oral capsule (20 sources) Vitamin D Start: take 1 capsule by mouth once Cholecalciferol, Vitamin D3, 125 mcg (5,000 unit) cap Take 1 capsule by mouth every afternoon. 09/09/2023 Active End: 09-23-2023 take 1 tablet by mouth once daily cholecalciferol (VITAMIN D3) 50 mcg (2,000 unit) tablet Take 2,000 Units by mouth once daily. 0 09/23/2023 Discontinued (Dosage adjustment) Comment on above: Take 2,000 Units by mouth once daily. Take 1 capsule by mo [facility] every afternoon. Ciprofloxacin (3 sources) Quinolone Antimicrobial Start: 03-26-2018 Ciprofloxacin 0.3% Active 1 DRP Right Eye 4 TIMES DAILY March 26, 2018 9:02am Start: 03-26-2018 Ciprofloxacin 0.3% Active 1 DRP Right Eye 4 TIMES DAILY March 25, 2018 11:00pm folic acid 0.8 mg oral tablet (20 sources) take 2 tablets by mouth once daily folic acid 800 mcg tablet Take two tablets by mouth once daily. Active Comment on above: Take two tablets by mouth once daily. leucovorin 15 mg oral tablet (20 sources) Folate Analog Start: 1 take 1 tablet by mouth every week leucovorin (LEUCOVORIN) 15 mg tablet Take 15 mg by mouth one time a week. 08/13/2021 Active Comment on above: Take 15 mg by mouth one time a week. levothyroxine sodium 0.15 mg oral tablet (20 sources) l-Thyroxine Start: 3 take 1 tablet by mouth once levothyroxine (SYNTHROID) 150 mcg tablet Take 1 tablet by mouth every afternoon. 09/09/2023 Active Start: 01-16-2022 End: 09-23-2023 take 1 tablet by mouth once daily levothyroxine (SYNTHROID) 137 mcg tablet Take 1 tablet by mouth once daily. 0 01/16/2022 09/23/2023 Discontinued (Dosage adjustment) Start: 03-26-2018 End: 02-26-2022 take 125 ug by mouth once daily Levothyroxine Active 125 MCG PO DAILY March 26, 2018 9:02am Comment on above: Take 1 tablet by mitch th once daily. Take 125 mcg by mout h once daily. Take 1 tablet by mitch th every afternoon. LORazepam 1 mg oral tablet (3 sources) Benzodiazepine Start: 8 take 1 mg by mouth three times daily as needed Lorazepam Active 1 MG PO 3 TIMES DAILY NEEDED March 26, 2018 9:02am 2 ml methotrexate 25 mg/ml injection (20 sources) Folate Analog Metabolic Inhibitor Start: 1 methotrexate, PF, 25 mg/mL soln one time a week. 08/18/2021 Active Start: 08-18-2021 methotrexate, PF, 25 mg/mL soln one time a week. 08/18/2021 Active Start: 08-31-2019 End: 03-23-2024 methotrexate 2.5 mg tablet Start: 08-31-2019 take 6 tablets by mo uth every week methotrexate 2.5 mg tablet TAKE SIX TABLETS BY MOUTH ONCE A WEEK 99 08/31/2019 Active methotrexate sod ium 25 mg/mL soln INJECT 0.5 MILLILITER(S) ONCE A WEEK Injection Active Comment on above: TAKE SIX TABLETS BY MOUTH ONCE A WEEK one time a week. phenylephrine hydrochloride 25 mg/ml ophthalmic solution (9 sources) alpha-1 Adrenergic Agonist Start: 07-05-2025 End: 07-05-2025 PHENYLephrine 2.5 % 1 drop (AK-DILATE, PAVAN-SYNEPHRINE) Start: 01-18-2025 End: 01-18-2025 PHENYLephrine 2.5 % 1 Drop ( AK-DILATE, PAVAN-SYNEPHRINE) Start: 01-18-2025 End: 01-18-2025 1 Drop, BOTH EYES, DIRECT ED, Starting on Mel 01/18/25 at 1130, Until Mel 01/18/25 at 2329, Administer for dilation PROTECT FROM LIGHT Start: 07-20-2024 End: 07-20-2024 PHENYLephrine 2.5 % 1 Drop ( AK-DILATE, PAVAN-SYNEPHRINE) Start: 07-20-2024 End: 07-20-2024 1 Drop, BOTH EYES, DIRECT ED, Starting on Mel 07/20/24 at 0930, Until Mel 07/20/24 at 2129, Administer for dilation PROTECT FROM LIGHT, OPHT CLINIC MED ORDERS Start: 01-27-2024 End: 01-27-2024 PHENYLephrine 2.5 % 1 Drop ( AK-DILATE, PAVAN-SYNEPHRINE) Start: 07-29-2023 End: 07-29-2023 PHENYLephrine 2.5 % 1 Drop ( AK-DILATE, PAVAN-SYNEPHRINE) Start: 01-21-2023 End: 01-22-2023 PHENYLephrine 2.5 % 1 Drop ( AK-DILATE, PAVAN-SYNEPHRINE) Start: 2022 End: 07-24-2022 PHENYLephrine 2.5 % 1 Drop ( AK-DILATE, PAVAN-SYNEPHRINE) prednisoLONE eye drops (1 mL ) (3 sources) Start: 03-26-2018 prednisoLONE e ye drops (1 mL) Active 1 DRP Right Eye 4 TIMES DAILY March 26, 2018 9:02am Start: 03-26-2018 prednisoLONE e ye drops (1 mL) Active 1 DRP Right Eye 4 TIMES DAILY March 25, 2018 11:00pm proparacaine hydrochloride 5 mg/ml ophthalmic solution (14 sources) Local Anesthetic Start: 07-05-2025 End: 07-05-2025 proparacaine 0.5 % 1 drop (ALCAINE) Start: 01-18-2025 End: 01-18-2025 proparacaine 0.5 % 1 Drop (A LCAINE) Start: 01-18-2025 End: 01-18-2025 1 Drop, BOTH EYES, DIRECT ED, Starting on Mel 01/18/25 at 1100, Until Mel 01/18/25 at 2259, Administer for pneumo tonometry, tonopen tonometry, or pachymetry. In the event of a proparacaine shortage, administer tetracaine 0.5% ophthalmic drops 1 drop in both eyes as directed for pneumo tonometry, tonopen tonometry, or pachymetry, OPHT CLINIC MED ORDERS Start: 11-16-2024 End: 11-16-2024 proparacaine 0.5 % 1 Drop (A LCAINE) Start: 07-20-2024 End: 07-20-2024 proparacaine 0.5 % 1 Drop (A LCAINE) Start: 07-20-2024 End: 07-20-2024 1 Drop, BOTH EYES, DIRECT ED, Starting on Mel 07/20/24 at 0930, Until Mel 07/20/24 at 2129, Administer for pneumo tonometry, tonopen tonometry, or pachymetry. In the event of a proparacaine shortage, administer tetracaine 0.5% ophthalmic drops 1 drop in both eyes as directed for pneumo tonometry, tonopen tonometry, or pachymetry, OPHT CLINIC MED ORDERS Start: 05-25-2024 End: 05-25-2024 proparacaine 0.5 % 1 Drop (A LCAINE) Start: 03-23-2024 End: 03-23-2024 proparacaine 0.5 % 1 Drop (A LCAINE) Start: 01-27-2024 End: 01-27-2024 proparacaine 0.5 % 1 Drop (A LCAINE) Start: 09-23-2023 End: 09-24-2023 proparacaine 0.5 % 1 Drop (A LCAINE) Start: 07-29-2023 End: 07-29-2023 proparacaine 0.5 % 1 Drop (A LCAINE) Start: 01-21-2023 End: 01-22-2023 proparacaine 0.5 % 1 Drop (A LCAINE) Start: 12-10-2022 End: 12-11-2022 proparacaine 0.5 % 1 Drop (A LCAINE) Start: 2022 End: 07-24-2022 proparacaine 0.5 % 1 Drop (A LCAINE) sertraline 25 mg oral tablet (20 sources) Serotonin Reuptake Inhibitor Start: 12-22-2023 take 1 tablet by mouth once sertraline (ZOLOFT) 25 mg tablet Take 1 tablet by mouth every afternoon. 12/22/2023 Active End: 03-23-2024 take 1 tablet by mouth once daily sertraline (ZOLOFT) 100 mg tablet Take 100 mg by mouth once daily. 0 03/23/2024 Discontinued Comment on above: Take 100 mg by mouth once daily. traMADol hydrochloride 50 mg oral tablet (20 sources) Opioid Agonist Start: 04-20-2022 take 1 tablet by mouth every eight hours as needed traMADol (ULTRAM) 50 mg tablet Take 50 mg by mouth three times daily as needed. 04/20/2022 Active Start: 03-26-2018 take 100 mg by mouth every four hours as needed Tramadol Active 100 MG PO EVERY 4 HOURS NEEDED March 26, 2018 9:02am Comment on above: Take 50 mg by mouth three times daily as needed. tropicamide 10 mg/ml ophthalmic solution (9 sources) Anticholinergic Start: 07-05-2025 End: 07-05-2025 tropicamide 1 % 1 drop (MYDRIACYL) Start: 01-18-2025 End: 01-18-2025 tropicamide 1 % 1 Drop (MYDR IACYL) Start: 01-18-2025 End: 01-18-2025 1 Drop, BOTH EYES, DIRECT ED, Starting on Mel 01/18/25 at 1130, Until Mel 01/18/25 at 2329, Administer for dilation Start: 07-20-2024 End: 07-20-2024 tropicamide 1 % 1 Drop (MYDR IACYL) Start: 07-20-2024 End: 07-20-2024 1 Drop, BOTH EYES, DIRECT ED, Starting on Mel 07/20/24 at 0930, Until Mel 07/20/24 at 2129, Administer for dilation, OPHT CLINIC MED ORDERS Start: 01-27-2024 End: 01-27-2024 tropicamide 1 % 1 Drop (MYDR IACYL) Start: 07-29-2023 End: 07-29-2023 tropicamide 1 % 1 Drop (MYDR IACYL) Start: 01-21-2023 End: 01-22-2023 tropicamide 1 % 1 Drop (MYDR IACYL) Start: 2022 End: 07-24-2022 tropicamide 1 % 1 Drop (MYDR IACYL) Completed/Discontinued Medications Medication Drug Class(es) Dates Sig (Normalized) Sig (Original) Acetaminophen (20 sources) End: 03-23-2024 acetaminophen (TYLENOL ARTHRITIS ORAL) Take by mouth. 0 03/23/2024 Discontinued acetaminophen (T YLENOL ARTHRITIS ORAL) Take by mouth. 0 Active Comment on above: Take by mouth. 0.05 ml aflibercept 40 mg/ml injection (18 sources) Vascular Endothelial Growth Factor Inhibitor Start: 07-20-2024 End: 07-20-2024 aflibercept intravitreal injection 2 mg/0.05 mL (EYLEA) Start: 07-20-2024 End: 07-20-2024 2 mg, ONCE, 1 dose, Starting on Mel 07/20/24 at 1028, Until Mel 07/20/24 at 1028 Start: 05-25-2024 End: 05-25-2024 aflibercept intravitreal inj ection 2 mg/0.05 mL (EYLEA) Start: 03-23-2024 End: 03-23-2024 aflibercept intravitreal inj ection 2 mg/0.05 mL (EYLEA) Start: 01-27-2024 End: 01-27-2024 aflibercept intravitreal inj ection 2 mg/0.05 mL (EYLEA) Start: 09-23-2023 End: 09-23-2023 aflibercept intravitreal inj ection 2 mg/0.05 mL (EYLEA) Start: 07-29-2023 End: 07-29-2023 aflibercept intravitreal inj ection 2 mg/0.05 mL (EYLEA) Start: 05-27-2023 End: 05-27-2023 aflibercept intravitreal inj ection 2 mg/0.05 mL (EYLEA) Start: 01-21-2023 End: 01-21-2023 aflibercept intravitreal inj ection 2 mg/0.05 mL (EYLEA) Start: 12-10-2022 End: 12-10-2022 aflibercept intravitreal inj ection 2 mg/0.05 mL (EYLEA) Start: 10-22-2022 End: 10-22-2022 aflibercept intravitreal inj ection 2 mg/0.05 mL (EYLEA) Start: 09-03-2022 End: 09-03-2022 aflibercept intravitreal inj ection 2 mg/0.05 mL (EYLEA) Start: 2022 End: 2022 aflibercept intravitreal inj ection 2 mg/0.05 mL (EYLEA) Start: 06-11-2022 End: 06-11-2022 aflibercept intravitreal inj ection 2 mg/0.05 mL (EYLEA) Start: 04-23-2022 End: 04-23-2022 aflibercept intravitreal inj ection 2 mg/0.05 mL (EYLEA) Start: 02-26-2022 End: 02-26-2022 aflibercept intravitreal inj ection 2 mg/0.05 mL (EYLEA) aflibercept intravitreal injection 2 mg/0.05 mL (EYLEA) (8 sources) Start: 07-05-2025 End: 07-05-2025 aflibercept intravitreal injection 2 mg/0.05 mL (EYLEA) Start: 07-05-2025 End: 07-05-2025 2 mg, ONCE, 1 dose, Starting on Mel 07/05/25 at 0958, Until Mel 07/05/25 at 0958 Start: 01-18-2025 End: 01-18-2025 aflibercept intravitreal inj ection 2 mg/0.05 mL (EYLEA) Start: 01-18-2025 End: 01-18-2025 2 mg, ONCE, 1 dose, Starting on Mel 01/18/25 at 1208, Until Mel 01/18/25 at 1208 Start: 11-16-2024 End: 11-16-2024 aflibercept intravitreal inj ection 2 mg/0.05 mL (EYLEA) Start: 11-16-2024 End: 11-16-2024 2 mg, ONCE, 1 dose, Starting on Mel 11/16/24 at 1210, Until Mel 11/16/24 at 1210 Start: 09-14-2024 End: 09-14-2024 aflibercept intravitreal inj ection 2 mg/0.05 mL (EYLEA) Start: 09-14-2024 End: 09-14-2024 2 mg, ONCE, 1 dose, Starting on Mel 09/14/24 at 1229, Until Mel 09/14/24 at 1229 Blood Pressure Monitor (BLOOD PRESSURE KIT) Misc Kit (20 sources) Start: 08-10-2011 End: 09-07-2024 Blood Pressure Monitor (BLOO D PRESSURE KIT) Misc Kit Indications: Rheumatoid arthritis(714.0) , HTN (hypertension) , Hypothyroidism to take for htn 1 Kit 0 08/10/2011 09/07/2024 Discontinued Start: 08-10-2011 Blood Pressure Monitor (BLOOD PRESSURE KIT) Misc Kit Indications: Rheumatoid arthritis(714.0) , HTN (hypertension) , Hypothyroidism to take for htn 1 Kit 0 08/10/2011 Active Comment on above: to take for htn citalopram 20 mg oral tablet (20 sources) Serotonin Reuptake Inhibitor Start: 0 End: 4 take 1 tablet by mouth once daily citalopram (CELEXA) 20 mg tablet Take 20 mg by mouth once daily. 0 08/16/2020 03/23/2024 Discontinued Comment on above: Take 20 mg by mouth once daily. DULoxetine 60 mg delayed release oral capsule (20 sources) Serotonin and Norepinephrine Reuptake Inhibitor Start: 2 End: 4 DULoxetine (CYMBALTA) 60 mg capsule Take 30 mg by mouth once daily. 06/29/2022 09/07/2024 Discontinued Start: 06-29-2022 take 1 capsule by [facility] once daily DULoxetine (CYMBALTA) 30 mg capsule Take 30 mg by mouth once daily. 0 06/29/2022 Active Comment on above: Take 30 mg by mouth once daily. miSOPROStol 0.2 mg oral tablet (20 sources) Prostaglandin E1 Analog Start: 1 End: 4 miSOPROStol (CYTOTEC) 200 mcg tablet Take two tablets PO night before procedure and two tablets morning of procedure 4 tablet 0 03/18/2021 03/23/2024 Discontinued Comment on above: Take two tablets PO night before procedure and two tablets morning of procedure naproxen sodium 220 mg oral tablet (20 sources) Nonsteroidal Anti-inflammatory Drug End: 4 naproxen sodium (ALEVE) 220 mg tablet Take 220 mg by mouth as needed. 0 03/23/2024 Discontinued Comment on above: Take 220 mg by mouth as needed. VIT A/VIT C/VIT E/ZINC/COPPER (PRESERVISION AREDS ORAL) (20 sources) End: 4 take 1 tablet by mouth twice daily VIT A/VIT C/VIT E/ZINC/COPPER (PRESERVISION AREDS ORAL) Take 1 tablet by mouth twice daily. 09/07/2024 Discontinued take 1 tablet by mouth twice jesenia ly VIT A/VIT C/VIT E/ZINC/COPPER (PRESERVISION AREDS ORAL) Take 1 tablet by mouth twice daily. Active take 1 tablet by mouth twice jesenia ly VIT A/VIT C/VIT E/ZINC/COPPER (PRESERVISION AREDS ORAL) Take 1 tablet by mouth twice daily. 0 Active Comment on above: Take 1 tablet by mitch th twice daily. Problems Active Problems Problem Classification Problem Date Documented Da te Episodic/Chronic Abdominal pain (3 sources) Epigastric pain; Translations: [Epigastric pain] Episodic Allergic reactions (3 sources) Inflammatory dermatosis; Translations: [Dermatitis, unspecified] Episodic Cancer of breast (20 sources) Malignant tumor of breast ; Translations: [Malignant neoplasm of unspecified site of unspecified female breast] Onset: 03-27-2013 03-27-2013 Chronic Cataract (20 sources) Bilateral pseudophakia; Translations: [Presence of intraocular lens] Onset: 09-27-2015 Resolved: 12-26-2015 12-26-2015 Chronic Inflammation; infection of eye (except that caused by tuberculosis or sexually transmitteddisease) (20 sources) Endophthalmitis of right eye; Translations: [Unspecified purulent endophthalmitis, right eye] Onset: 02-09-2018 02-09-2018 Chronic Neoplasms of unspecified nature or uncertain behavior (2 sources) 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; Translations: [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] Onset: 09-07-2025 09-07-2024 Episodic Osteoarthritis (20 sources) Osteoarthritis; Translations: [Unspecified osteoarthritis, unspecified site] Onset: 09-02-2009 09-02-2009 Chronic Osteoporosis (20 sources) Osteoporosis; Translations: [Age-related osteoporosis without current pathological fracture] Onset: 10-01-2009 10-01-2009 Chronic Other aftercare (4 sources) Other chcf (current) drug therapy; Translations: [OTH INTERMEDIATE CURRENT DRUG THERAPY] Onset: 06-26-2025 Episodic Other connective tissue disease (2 sources) Fibromyalgia; Translations: [FIBROMYALGIA] Onset: 06-28-2025 Episodic Other eye disorders (20 sources) Posterior vitreous detachment of left eye; Translations: [Vitreous degeneration, left eye] Onset: 09-27-2015 09-27-2015 Chronic Other gastrointestinal disorders (2 sources) Finding of abdominopelvic segment of trunk; Translations: [Left lower quadrant abdominal swelling, mass and lump] Episodic Other gastrointestinal disorders (1 source) Swelling; Translations: [Other intra-abdominal and pelvic swelling, mass and lump] Episodic Other gastrointestinal disorders (1 source) Abdominal mass; Translations: [Left lower quadrant abdominal swelling, mass and lump] 08-29-2024 Episodic Other nutritional; endocrine; and metabolic disorders (20 sources) Body mass index 40+ - severely obese; Translations: [Morbid (severe) obesity due to excess calories] Onset: 04-19-2017 04-19-2017 Chronic Other nutritional; endocrine; and metabolic disorders (20 sources) H/O: hypothyroidism; Translations: [Personal history of other endocrine, nutritional and metabolic disease] 12-03-2015 Episodic Other screening for suspected conditions (not mental disorders or infectious disease) (5 sources) Patient encounter status; Translations: [Encounter for screening mammogram for malignant neoplasm of breast] Onset: 09-07-2025 Episodic Ovarian cyst (12 sources) Cyst of ovary; Translations: [Unspecified ovarian cyst, left side] Onset: 09-07-2025 Episodic Retinal detachments; defects; vascular occlusion; and retinopathy (20 sources) 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 macular degeneration; Translations: [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 macular degeneration, bilateral, with active choroidal neovascularization] Onset: 09-06-2015 Resolved: 11-12-2016 Chronic Rheumatoid arthritis and related disease (20 sources) Rheumatoid arthritis; Translations: [Rheumatoid arthritis, unspecified] Onset: 01-23-2003 09-06-2015 Chronic Unclassified (1 source) Problem Visit Onset: 09-19-2025 Past or Other Problems Problem Classification Problem Date Documented Date Episodic/Chronic Biliary tract disease (20 sources) Chronic cholecystitis without calculus; Translations: [Chronic cholecystitis] Onset: 09-18-2015 09-18-2015 Episodic Blindness and vision defects (20 sources) Regular astigmatism; Translations: [Regular astigmatism, unspecified eye] Onset: 12-03-2015 Resolved: 12-26-2015 04-07-2016 Episodic Other acquired deformities (13 sources) Acquired genu valgum; Translations: [Valgus deformity, not elsewhere classified, unspecified knee] Onset: 10-01-2009 Resolved: 02-12-2014 02-12-2014 Episodic Other connective tissue disease (13 sources) Pain in limb; Translations: [Pain in unspecified limb] Onset: 12-26-2010 Resolved: 02-12-2014 02-12-2014 Episodic Residual codes; unclassified (20 sources) Estrogen receptor positive tumor; Translations: [Estrogen receptor positive status [ER+]] Onset: 04-24-2013 04-24-2013 Episodic Results Test Name Value Interpretation Reference Range Facility CBC W Auto Differential pane l (Bld)on 09-19-2025 Basophils (Bld) [#/Vol] 0.05 10*3/uL Normal <0.11 [facility] Comment on above: Order Comment: Speci men Type: BLOOD SPECIMEN Ordering Facility: [facility] Address: [address] [place] [address] Performed By: #### 5 7021-8 #### [id number] [address] [place] [address] [place] Basophils/100 WBC (Bld) 0.9 % Normal [facility] Comment on above: Order Comment: Speci men Type: BLOOD SPECIMEN Ordering Facility: [facility] Address: [address] [place] [address] Performed By: #### 5 7021-8 #### [facility] CLIA [id number] [address] [place] [address] [place] Differential cell count method Nom (Bld) Auto Normal [facility] Comment on above: Order Comment: Speci men Type: BLOOD SPECIMEN Ordering Facility: [facility] Address: [address] [place] [address] Performed By: #### 5 7021-8 #### [facility] CLIA [id number] [address] [place] [address] [place] Eosinophils (Bld) [#/Vol] 0.06 10*3/uL Normal <0.46 [facility] Comment on above: Order Comment: Speci men Type: BLOOD SPECIMEN Ordering Facility: [facility] Address: [address] [place] [address] Performed By: #### 5 7021-8 #### [facility] CLIA [id number] [address] [place] [address] [place] Eosinophils/100 WBC (Bld) 1.0 % Normal [facility] Comment on above: Order Comment: Speci men Type: BLOOD SPECIMEN Ordering Facility: [facility] Address: [address] [place] [address] Performed By: #### 5 7021-8 #### [facility] CLIA [id number] [address] [place] [address] [place] Erythrocyte distribution width (RBC) [Ratio] 14.5 % Normal 11.5-15.0 [facility] Comment on above: Order Comment: Speci men Type: BLOOD SPECIMEN Ordering Facility: [facility] Address: [address] [place] [address] Performed By: #### 5 7021-8 #### [facility] CLIA [id number] [address] [place], [place] [address] [place] Hematocrit (Bld) [Volume fraction] 39.9 % Normal 36.0-46.0 [facility] Comment on above: Order Comment: Speci men Type: BLOOD SPECIMEN Ordering Facility: [facility] Address: [address] [place] [address] Performed By: #### 5 7021-8 #### [facility] CLIA [id number] [address] [place] [address] [place] Hemoglobin (Bld) [Mass/Vol] 13.1 g/dL Normal 11.5-15.5 [facility] Comment on above: Order Comment: Speci men Type: BLOOD SPECIMEN Ordering Facility: [facility] Address: [address] [place] [address] Performed By: #### 5 7021-8 #### [facility] CLIA [id number] [address] [place] [address] [place] Immature granulocytes (Bld) [#/Vol] 10*3/uL Normal <0.10 [facility] Comment on above: Order Comment: Speci men Type: BLOOD SPECIMEN Ordering Facility: [facility] Address: [address] [place] [address] Performed By: #### 5 7021-8 #### [facility] CLIA [id number] [address] [place] [address] [place] Immature granulocytes/100 WBC (Bld) 0.2 % Normal [facility] Comment on above: Order Comment: Speci men Type: BLOOD SPECIMEN Ordering Facility: [facility] Address: [address] [place] [address] Performed By: #### 5 7021-8 #### [facility] CLIA [id number] [address] [place] [address] [place] Lymphocytes (Bld) [#/Vol] 1.29 10*3/uL Normal 1.00-4.00 [facility] Comment on above: Order Comment: Speci men Type: BLOOD SPECIMEN Ordering Facility: [facility] Address: [address] [place] [address] Performed By: #### 5 7021-8 #### [facility] CLIA [id number] [address] [place] [address] [place] Lymphocytes/100 WBC (Bld) 22.3 % Normal [facility] Comment on above: Order Comment: Speci men Type: BLOOD SPECIMEN Ordering Facility: [facility] Address: [address] [place] [address] Performed By: #### 5 7021-8 #### [facility] CLIA [id number] [address] [place] [address] [place] MCH (RBC) [Entitic mass] 31.4 pg Normal 26.0-34.0 [facility] Comment on above: Order Comment: Speci men Type: BLOOD SPECIMEN Ordering Facility: [facility] Address: [address] [place] [address] Performed By: #### 5 7021-8 #### [facility] CLIA [id number] [address] [place] [address] [place] MCHC (RBC) [Mass/Vol] 32.8 g/dL Normal 30.5-36.0 [facility] Comment on above: Order Comment: Speci men Type: BLOOD SPECIMEN Ordering Facility: [facility] Address: [address] [place] [address] Performed By: #### 5 7021-8 #### [facility] CLIA [id number] [address] [place] [address] [place] MCV (RBC) [Entitic vol] 95.7 fL Normal 80.0-100.0 [facility] Comment on above: Order Comment: Speci men Type: BLOOD SPECIMEN Ordering Facility: [facility] Address: [address] [place] [address] Performed By: #### 5 7021-8 #### [facility] CLIA [id number] [address] [place] [address] [place] Monocytes (Bld) [#/Vol] 0.48 10*3/uL Normal <0.87 [facility] Comment on above: Order Comment: Speci men Type: BLOOD SPECIMEN Ordering Facility: [facility] Address: [address] [place] [address] Performed By: #### 5 7021-8 #### [facility] CLIA [id number] [address] [place] [address] [place] Monocytes/100 WBC (Bld) 8.3 % Normal [facility] Comment on above: Order Comment: Speci men Type: BLOOD SPECIMEN Ordering Facility: [facility] Address: [address] [place] [address] Performed By: #### 5 7021-8 #### [facility] CLIA [id number] [address] [place] [address] [place] Neutrophils (Bld) [#/Vol] 3.90 10*3/uL Normal 1.45-7.50 [facility] Comment on above: Order Comment: Speci men Type: BLOOD SPECIMEN Ordering Facility: [facility] Address: [address] [place] [address] Performed By: #### 5 7021-8 #### [facility] CLIA [id number] [address] [place] [address] [place] Neutrophils/100 WBC (Bld) 67.3 % Normal [facility] Comment on above: Order Comment: Speci men Type: BLOOD SPECIMEN Ordering Facility: [facility] Address: [address] [place] [address] Performed By: #### 5 7021-8 #### [facility] CLIA [id number] [address] [place] [address] [place] Nucleated RBC (Bld) [#/Vol] 10*3/uL Normal <0.01 [facility] Comment on above: Order Comment: Speci men Type: BLOOD SPECIMEN Ordering Facility: [facility] Address: [address] [place] [address] Performed By: #### 5 7021-8 #### [facility] CLIA [id number] [address] [place] [address] [place] Nucleated RBC/100 WBC (Bld) [Ratio] 0.0 /100 WBC Normal [facility] Comment on above: Order Comment: Speci men Type: BLOOD SPECIMEN Ordering Facility: [facility] Address: [address] [place] [address] Performed By: #### 5 7021-8 #### [facility] CLIA [id number] [address] [place] [address] [place] Platelet mean volume (Bld) [Entitic vol] 9.6 fL Normal 9.0-12.7 [facility] Comment on above: Order Comment: Speci men Type: BLOOD SPECIMEN Ordering Facility: [facility] Address: [address] [place] [address] Performed By: #### 5 7021-8 #### [facility] CLIA [id number] [address] [place] [address] [place] Platelets (Bld) [#/Vol] 244 10*3/uL Normal 150-400 [facility] Comment on above: Order Comment: Speci men Type: BLOOD SPECIMEN Ordering Facility: [facility] Address: [address] [place] [address] Performed By: #### 5 7021-8 #### [facility] CLIA [id number] [address] [place] [address] [place] RBC (Bld) [#/Vol] 4.17 10*6/uL Normal 3.90-5.20 [facility] Comment on above: Order Comment: Speci men Type: BLOOD SPECIMEN Ordering Facility: [facility] Address: [address] [place] [address] Performed By: #### 5 7021-8 #### [facility] CLIA [id number] [address] [place] [address] [place] WBC (Bld) [#/Vol] 5.79 10*3/uL Normal 3.70-11.00 [facility] Comment on above: Order Comment: Speci men Type: BLOOD SPECIMEN Ordering Facility: [facility] Address: [address] [place] [address] Performed By: #### 5 7021-8 #### [facility] CLIA [id number] [address] [place] [address] [place] CNOVon 09-19-2025 CNOV Office Visit (OBGYWM ) TANNERSTACY Jass ([id number]) 1950 F Date Time Provider Department 09/19/25 9:30 AM ANJELICA GEORGE OBJAVIER During your visit today, we recorded the following information about you: Blood pressure 118/64 Anjelica George APRN.CNM 09/19/2025 5:20 PM Signed Stacy Martedon is a 75 year old female who presents with her daughter for problem visit review pelvic ultrasound. HPI: Patient completed pelvic ultrasound on 09/07/25 for left ovarian cyst. Results of pelvic US indicated: Possible endometrial polyp that was not visualized on prior study. Consider hysteroscopic evaluation as clinically indicated. Patient was referred at this time back to [facility] due to history of being seen by Dr. Bowman in the past. Patient very anxious over the incidental finding of a possible endometrial polyp and is here to day to discuss recommendation for treatment. She stated at one point she was requesting to have a hysterectomy but now declines. She has several questions about polyps, ovarian cyst and removal. 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 History Comments: Sexual Activity: Not Currently; No partner data on record Contraception: No contraception data on record PAST MEDICAL HISTORY Diagnosis Date Breast cancer (HCC) 2012 right breast Cyst of left ovary Depression Endophthalmitis Hypothyroid Macular degeneration both eyes Osteopenia Rheumatoid arthritis PAST SURGICAL HISTORY Procedure Laterality Date ANESTH, SECTION 1982 2; vertical midline and pfann; tubal ligation BX/EXC LYMPH NODE OPEN DEEP AXILLARY NODE 04/05/2013 INTRAOP SENTINEL LYMPH NODE ID W/DYE INJECTION 04/05/2013 LAPAROSCOPY SURG CHOLECYSTECTOMY 09/11/2015 MASTECTOMY, PARTIAL Right 04/05/2013 Lumpectomy OVARIAN CYSTECTOMY UNI/BI right and left OVARIAN WEDGE RESECTION PAST SURGICAL HISTORY OF 2008 left knee replacement PREOP PLACEMENT NEEDLE LOC 04/05/2013 TONSILLECTOMY AND ADENOIDECTOMY XCAPSL CTRC RMVL INSJ IO LENS PROSTH W/O ECP Left 10/24/2015 Cataract Extraction with PC IOL/Femto/Toric XCAPSL CTRC RMVL INSJ IO LENS PROSTH W/O ECP Right 12/11/2015 Cataract Extraction with PC IOL/Femto/LRI REVIEW OF SYSTEMS Abdomen: No bloating, early satiety, indigestion, or increased flatulence. No abdominal pain, nausea, vomiting, diarrhea, or constipation. Bladder: No dysuria, gross hematuria, urinary frequency, urinary urgency, or incontinence. Breast: No breast lumps, nipple d/c, overlying skin changes, redness or skin retraction. Expanded ROS: N/A Allergies and current medication updated:Yes SENSITIVE EXAM: Sensitive exam not performed. EXAM: There were no vitals taken for this visit. GENERAL: upset and emotional, female in mild distress HEENT: Normocephalic NECK: Supple DERMATOLOGY: Normal BREAST: deferred CHEST: Normal inspiratory effort ABDOMEN: Deferred PELVIC: deferred BIMANUAL: deferred NEURO: alert and oriented x3,exam grossly non-focal EXTREMITIES: normal ASSESSMENT AND PLAN: Assessment AND Plan Cyst of left ovary Endometrial polyp Postmenopausal - Patient denies any AUB, or pelvic pain - Discussed and educated on polyp and removal during hysteroscopy - under anesthesia - It was recommended to have follow up EMB and would like this completed during polypectomy. - Patient does NOT want a hysterectomy - She prefers procedure to be completed at [facility] under anesthesia - Will send to nursing to assist with scheduling - Chart sent to Dr. Mcleod to confirm she can have this procedure completed at [facility] and does not need seen by [facility]. CANDICE Cutler Courtney, APRN.CNM 09/19/2025 1:31 PM Written Anjelica George APRN.CNM 09/19/2025 1:31 PM Written Allergies As of Date: 09/19/2025 (No Known Allergies) Date Reviewed: 09/19/2025 Reviewed by: Mar Epperson LPN - Fully Assessed Reason for Visit: Problem Visit [Other] Cmt: Review results 09/07/2025, denied pain with visit. Primary Visit Diagnosis:Cyst of left ovary [N83.202] Other Visit Diagnoses:Endometrial polyp [N84.0] Postmenopausal [Z78.0] Prescriptions as of 09/19/2025 - LORazepam (ATIVAN) 0.5 mg 0.5 mg two times a day. - methotrexate sodium 25 mg/mL soln INJECT 0.5 MILLILITER(S) ONCE A WEEK Injection - sertraline (ZOLOFT) 25 mg tablet Take 1 tablet by mouth every afternoon. - levothyroxine (SYNTHROID) 150 mcg tablet Take 1 tablet by mouth every afternoon. - Cholecalciferol, Vitamin D3, 125 mcg (5,000 unit) cap Take 1 capsule by mouth every afternoon. - traMADol (ULTRAM) 50 mg tablet Take 50 mg by mouth three times daily as needed. - (more content not included)... Normal [facility] Comprehensive metabolic 2000 panelon 09-19-2025 Albumin [Mass/Vol] 3.9 g/dL Normal 3.9-4.9 [facility] Comment on above: Order Comment: Speci men Type: BLOOD SPECIMEN Ordering Facility: [facility] Address: [address] [place] [address] Performed By: #### 1 0334-1 #### [facility] CLIA [id number] [address] [place] [address] [place] ALP [Catalytic activity/Vol] 101 U/L Normal 34-123 [facility] Comment on above: Order Comment: Speci men Type: BLOOD SPECIMEN Ordering Facility: [facility] Address: [address] [place] [address] Performed By: #### 1 0334-1 #### [facility] CLIA [id number] [address] [place] [address] [place] ALT [Catalytic activity/Vol] 10 U/L Normal 7-38 [facility] Comment on above: Order Comment: Speci men Type: BLOOD SPECIMEN Ordering Facility: [facility] Address: [address] [place] [address] Performed By: #### 1 0334-1 #### [facility] CLIA [id number] [address] [place] [address] [place] Anion gap [Moles/Vol] 12 mmol/L Normal 8-15 [facility] Comment on above: Order Comment: Speci men Type: BLOOD SPECIMEN Ordering Facility: [facility] Address: [address] [place] [address] Performed By: #### 1 0334-1 #### [facility] CLIA [id number] [address] [place] [address] [place] AST [Catalytic activity/Vol] 18 U/L Normal 13-35 [facility] Comment on above: Order Comment: Speci men Type: BLOOD SPECIMEN Ordering Facility: [facility] Address: [address] [place] [address] Performed By: #### 1 0334-1 #### [facility] CLIA [id number] [address] [place] [address] [place] Bilirubin [Mass/Vol] 0.5 mg/dL Normal 0.2-1.3 [facility] Comment on above: Order Comment: Speci men Type: BLOOD SPECIMEN Ordering Facility: [facility] Address: [address] [place] [address] Performed By: #### 1 0334-1 #### [facility] CLIA [id number] [address] [place] [address] [place] Calcium [Mass/Vol] 9.3 mg/dL Normal 8.5-10.2 [facility] Comment on above: Order Comment: Speci men Type: BLOOD SPECIMEN Ordering Facility: [facility] Address: [address] [place] [address] Performed By: #### 1 0334-1 #### [facility] CLIA [id number] [address] [place] [address] [place] Chloride [Moles/Vol] 106 mmol/L Normal 98-107 [facility] Comment on above: Order Comment: Speci men Type: BLOOD SPECIMEN Ordering Facility: [facility] Address: [address] [place] [address] Performed By: #### 1 0334-1 #### [facility] CLIA [id number] [address] [place] [address] [place] CO2 [Moles/Vol] 22 mmol/L Normal 22-30 [facility] Comment on above: Order Comment: Speci men Type: BLOOD SPECIMEN Ordering Facility: [facility] Address: [address] [place] [address] Performed By: #### 1 0334-1 #### [facility] CLIA [id number] [address] [place] [address] [place] Creatinine [Mass/Vol] 0.76 mg/dL Normal 0.58-0.96 [facility] Comment on above: Order Comment: Speci men Type: BLOOD SPECIMEN Ordering Facility: [facility] Address: [address] [place] [address] Performed By: #### 1 0334-1 #### [facility] CLIA [id number] [address] [place] [address] [place] eGFRcr SerPlBld CKD-EPI 2020 81 mL/min/1.73m??? Normal >=60 [facility] Comment on above: Order Comment: Speci men Type: BLOOD SPECIMEN Ordering Facility: [facility] Address: [address] [place] [address] Result Comment: Giana mated Glomerular Filtration Rate (eGFR) is calculated using the 2020 CKD-EPI creatinine equation. This equation utilizes serum creatinine, sex, and age as parameters. The creatinine assay has traceable calibration to isotope dilution-mass spectrometry. Refer to KDIGO guidelines for clinical interpretation. In patients with unstable renal function, e.g. those with acute kidney injury, the eGFR may not accurately reflect actual GFR. Performed By: #### 1 0334-1 #### [facility] CLIA [id number] [address] [place] [address] [place] Glucose [Mass/Vol] 89 mg/dL Normal 74-99 [facility] Comment on above: Order Comment: Specdmitriy gomez Type: BLOOD SPECIMEN Ordering Facility: [facility] Address: [address] [place] [address] Result Comment: The [place] Diabetes Association (ADA) provides guidance for cutoff values for fasting glucose and random glucose. The ADA defines fasting as no caloric intake for at least 8 hours. Fasting plasma glucose results between 100 to 125 mg/dL indicate increased risk for diabetes (prediabetes). Fasting plasma glucose results greater than or equal to 126 mg/dL meet the criteria for diagnosis of diabetes. In the absence of unequivocal hyperglycemia, results should be confirmed by repeat testing. In a patient with classic symptoms of hyperglycemia or hyperglycemic crisis, random plasma glucose results greater than or equal to 200 mg/dL meet the criteria for diagnosis of diabetes. Reference: Standards of Medical Care in Diabetes 2016, [place] [employer]. Diabetes Care. 2016.39(Suppl 1). Performed By: #### 1 0334-1 #### [facility] CLIA [id number] [address] [place] [address] [place] Potassium [Moles/Vol] 3.8 mmol/L Normal 3.7-5.1 [facility] Comment on above: Order Comment: Yobani gomez Type: BLOOD SPECIMEN Ordering Facility: [facility] Address: [address] [place] [address] Performed By: #### 1 0334-1 #### [facility] CLIA [id number] [address] [place] [address] [place] Protein [Mass/Vol] 6.6 g/dL Normal 6.3-8.0 [facility] Comment on above: Order Comment: Speci men Type: BLOOD SPECIMEN Ordering Facility: [facility] Address: [address] [place] [address] Performed By: #### 1 0334-1 #### [facility] CLIA [id number] [address] [place] [address] [place] Sodium [Moles/Vol] 140 mmol/L Normal 136-144 [facility] Comment on above: Order Comment: Speci men Type: BLOOD SPECIMEN Ordering Facility: [facility] Address: [address] [place] [address] Performed By: #### 1 0334-1 #### [facility] CLIA [id number] [address] [place] [address] [place] Urea nitrogen [Mass/Vol] 15 mg/dL Normal 7-21 [facility] Comment on above: Order Comment: Speci men Type: BLOOD SPECIMEN Ordering Facility: [facility] Address: [address] [place] [address] Performed By: #### 1 0334-1 #### [facility] CLIA [id number] [address] [place] [address] [place] CNPRebekah 09-10-2025 CNPN Telephone (OBGYWM) STACY HART ([id number]) 1950 F Date Time Provider Department 09/10/25 GEETA MCLEOD During your visit today, we recorded the following information about you: Batsheva Lea RN 09/10/2025 11:23 AM Signed Geeta Mcleod MD 09/10/2025 10:28 AM EST Cysts appear benign. Schedule a f/u ovarian cyst visit w/ [facility] or another provider if she prefers when returns to discuss plan/follow up. Possible endometrial polyp. Her ca125 is benign. She may have an endometrial polyp. MD Jose Luis Montiel Tara, RN 09/10/2025 11:23 AM Signed Pt notified; however, Pt very nervous w/ past hx- previous ovarian cystectomy- was previously told her ovaries were tacked up. Pt prefers to go back and see [facility], Dr. Rachel Bowman DO, whom she saw 05/02/2021, referred to by DM, as Pt would just like to have a hysterecomy and get it all taken care of. Does she need another referral? Please advise. Advised Pt message would be routed to RR to check and we would call back to let her know. JASON Morgan Rebecca L, MD 09/10/2025 11:48 AM Signed She can see them. A hysterectomy is a major procedure with risks and if she has seen them in the past I will refer her back. Order in. MD Jose Luis Montiel Tara, RN 09/10/2025 11:54 AM Signed Pt notified. Transferred Pt to [facility] to get appointment scheduled with Dr. Alicja Bowman. Batsheva Lea RN Allergies As of Date: 09/10/2025 (No Known Allergies) Date Reviewed: 07/05/2025 Reviewed by: Jann Goddard MD - Fully Assessed Reason for Visit: Pelvic US results [Other] Primary Visit Diagnosis:Cysts of both ovaries [N83.201, N83.202] Order(s):CONSULT TO MINIMALLY INVASIVE GYNECOLOGIC SURGERY [4710014] Order #: [id number]: 1 FUTURE Prescriptions as of 09/17/2025 - methotrexate sodium 25 mg/mL soln INJECT 0.5 MILLILITER(S) ONCE A WEEK Injection - sertraline (ZOLOFT) 25 mg tablet Take 1 tablet by mouth every afternoon. - levothyroxine (SYNTHROID) 150 mcg tablet Take 1 tablet by mouth every afternoon. - Cholecalciferol, Vitamin D3, 125 mcg (5,000 unit) cap Take 1 capsule by mouth every afternoon. - traMADol (ULTRAM) 50 mg tablet Take 50 mg by mouth three times daily as needed. - methotrexate, PF, 25 mg/mL soln one time a week. - leucovorin (LEUCOVORIN) 15 mg tablet Take 15 mg by mouth one time a week. - folic acid 800 mcg tablet Take two tablets by mouth once daily. - bevacizumab 25 mg/mL injection One injection in both eyes every 8 weeks. 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] 10/01/2009 02/12/2014 Osteoporosis [M81.0] 10/01/2009 History of hypothyroidism [Z86.39] Knee joint replacement 11/28/2009 02/12/2014 Pain in limb [M79.609] 12/26/2010 02/12/2014 Breast cancer [C50.919] 03/27/2013 ER+ (estrogen receptor positive status) [Z17.0] 04/24/2013 Macular degeneration [H35.30] 09/06/2015 11/12/2016 Chronic cholecystitis without calculus [K81.1] 09/18/2015 Exudative senile macular degeneration of retina*09/27/2015 Cataract, nuclear sclerotic senile [H25.10] 09/27/2015 12/12/2015 Posterior vitreous detachment of left eye [H43.*09/27/2015 Rheumatoid arthritis of multiple sites with neg*11/29/2015 Combined form of senile cataract of both eyes [*12/02/2015 12/12/2015 Nonexudative age-related macular degeneration o*12/02/2015 Regular astigmatism [H52.229] 12/03/2015 12/26/2015 Pseudophakia of right eye [Z96.1] 12/12/2015 12/26/2015 Combined form of senile cataract [H25.819] 12/17/2015 12/26/2015 Pseudophakia of both eyes [Z96.1] 12/26/2015 Astigmatism, regular [H52.229] 04/07/2016 Hyperopia [H52.00] 04/07/2016 Myopia [H52.10] 04/07/2016 Invasive ductal carcinoma of right breast (HCC)*02/25/2017 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 macular degeneration of b*03/05/2017 Obesity, Class III, BMI >= 40 (morbid obesity) *04/19/2017 Endophthalmitis, right eye [H44.001] 02/09/2018 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 Results obtained with different methods or kits cannot be used interchangeably. The reference interval is based on the 95th percentile of 240 apparently healthy premenopausal and postmenopausal women. At a cutoff value of 65 U/mL, the test sensitivity to distinguish ovarian carcinoma (FIGO stage I to IV) versus benign gynecological disease is 79%, with a specificity of 82%. Reference: Cancer Antigen 125 (CA 125 II) [package insert V 1.0 [place]]. [facility], [place], [place] (August 2015) Performed By: #### 1 0334-1 #### [facility] CLIA [id number] [address] [place] [address] [place] MARGO SCREENING W TOMOon 09-07 MARGO SCREENING W EMANUEL * * *Final Report* * * DATE OF EXAM: Sep 07 2025 11:09AM [facility] [id number] - MARGO SCREENING W EMANUEL / PROCEDURE REASON: Encounter for screening mammogram for breast cancer * * * * Physician Interpretation * * * * RESULT: [facility] [address] [place] [address] #[id number] - MARGO SCREENING W EMANUEL HISTORY: 75 year-old patient presents for screening. Patient is asymptomatic in both breasts. The patient has the following personal history of breast cancer: breast cancer in the right breast. COMPARISON STUDIES: The present examination has been compared to prior imaging studies dated 07/09/2021 (mammogram), 07/10/2022 (mammogram), 08/11/2023 (mammogram) and 09/01/2024 (mammogram). MAMMOGRAM TECHNIQUE: The study was acquired using full field digital technology and interpreted from soft copy. Digital Breast Tomosynthesis (DBT) images were obtained and used to assist in the interpretation of this examination. MAMMOGRAM FINDINGS: The breasts are almost entirely fatty. There are post-operative changes in the right breast. No suspicious mass, calcifications, or other abnormality is seen in either breast. IMPRESSION: There is no mammographic evidence of malignancy. Routine screening mammogram is recommended. Annual mammogram will be due in 1 year. BI-RADS Category 2: Benign RISK: Due to the reported patient's history, the patient's estimated lifetime risk of developing breast cancer cannot be assessed at this time. We encourage all patients to talk with their providers about their risk assessment, further recommendations for managing breast health, and appropriate supplemental screening options if the patient has dense breast tissue. Interpreting Radiologist: Anders Hensley M.D. Electronically signed on: 09/08/2025 Land Classifier: [id number] Transcribe Date/Time: Sep 07 2025 10:57A Dictated by: ANDERS HENSLEY MD This examination was interpreted and the report reviewed and electronically signed by: ANDERS HENSLEY MD on Sep 08 2025 11:41AM EST [id number] Normal [facility] EYLEA (AFLIBERCEPT) 2MG INTR AVITREAL INJECTION OD (RIGHT EYE)on 07-05-2025 [facility] OCT MACULA CIRRUS OU (BOTH E YES)on 07-05-2025 [facility] Radiology Study observation (narrative) [facility] CBC W Auto Differential pane l (Bld)on 06-26-2025 Basophils (Bld) [#/Vol] 0.06 10*3/uL Normal <=0.70 [facility] Comment on above: Performed By: #### 5 7021-8 #### [facility] [address] [place], [place] [address] Comprehensive Ophthalmologist - Klaudia GAMBOA [id number] Basophils/100 WBC (Bld) 1.3 % Normal <=2.0 [facility] Comment on above: Performed By: #### 5 7021-8 #### [facility] [address] [place] [address] Comprehensive Ophthalmologist - Klaudia BERNARDIA [id number] Eosinophils (Bld) [#/Vol] 0.11 10*3/uL Normal <=0.70 [facility] Comment on above: Performed By: #### 5 7021-8 #### [facility] [address] [place] [address] Comprehensive Ophthalmologist - Klaudia BERNARDIA [id number] Eosinophils/100 WBC (Bld) 2.4 % Normal <=10.0 [facility] Comment on above: Performed By: #### 5 7021-8 #### [address] [place] [address] Comprehensive Ophthalmologist - Klaudia GAMBOA [id number] Erythrocyte distribution width (RBC) [Entitic vol] 50.5 fL High 36.4-46.3 [facility] Comment on above: Performed By: #### 5 7021-8 #### [place] [address] [place] [address] Comprehensive Ophthalmologist - Klaudia GAMBOA [id number] Hematocrit (Bld) [Volume fraction] 39.5 % Normal 37.0-47.0 [facility] Comment on above: Performed By: #### 5 7021-8 #### [address] [facility] [place] [address] Comprehensive Ophthalmologist - Klaudia GAMBOA [id number] Hemoglobin (Bld) [Mass/Vol] 13.0 g/dL Normal 12.0-16.0 [facility] Comment on above: Performed By: #### 5 7021-8 #### [place] [address] [place] [address] Comprehensive Ophthalmologist - Klaudia GAMBOA [id number] Immature granulocytes (Bld) [#/Vol] 0.01 10*3/uL Normal <=0.10 [facility] Comment on above: Performed By: #### 5 7021-8 #### [place] [address] [place] [address] Comprehensive Ophthalmologist - Klaudia GAMBOA [id number] Immature granulocytes/100 WBC (Bld) 0.20 % Normal <=1.50 [facility] Comment on above: Performed By: #### 5 7021-8 #### [place] [address] Comprehensive Ophthalmologist - Klaudia BERNARDIA [id number] Lymphocytes (Bld) [#/Vol] 1.21 10*3/uL Normal 1.20-3.40 [facility] Comment on above: Performed By: #### 5 7021-8 #### [place] [address] Comprehensive Ophthalmologist - Klaudia BERNARDIA [id number] Lymphocytes/100 WBC (Bld) 26.9 % Normal 20.0-40.0 [facility] Comment on above: Performed By: #### 5 7021-8 #### [place] [address] Comprehensive Ophthalmologist - Klaudia BERNARDIA [id number] MCH (RBC) [Entitic mass] 31.6 pg High 27.0-31.0 [facility] Comment on above: Performed By: #### 5 7021-8 #### [place] [address] Comprehensive Ophthalmologist - Klaudia BERNARDIA [id number] MCHC (RBC) [Mass/Vol] 32.9 g/dL Normal 32.0-36.0 [facility] Comment on above: Performed By: #### 5 7021-8 #### [place] [address] Comprehensive Ophthalmologist - Klaudia BERNARDIA [id number] MCV (RBC) [Entitic vol] 95.9 fL Normal 80.0-100.0 [facility] Comment on above: Performed By: #### 5 7021-8 #### [place] [address] Comprehensive Ophthalmologist - Klaudia BERNARDIA [id number] Monocytes (Bld) [#/Vol] 0.35 10*3/uL Normal 0.10-0.60 [facility] Comment on above: Performed By: #### 5 7021-8 #### [place] [address] [facility] [place] [address] Comprehensive Ophthalmologist - Klaudia Sargent CLIA [id number] Monocytes/100 WBC (Bld) 7.8 % Normal <=8.0 [facility] Comment on above: Performed By: #### 5 7021-8 #### [address] [place] [address] Comprehensive Ophthalmologist - Klaudia Sargent CLIA [id number] Neutrophils (Bld) [#/Vol] 2.75 10*3/uL Normal 1.40-6.50 [facility] Comment on above: Performed By: #### 5 7021-8 #### [place] [address] Comprehensive Ophthalmologist - Klaudia Sargent CLIA [id number] Neutrophils/100 WBC (Bld) 61.4 % Normal 50.0-70.0 [facility] Comment on above: Performed By: #### 5 7021-8 #### [place] [address] Comprehensive Ophthalmologist - Klaudia Sargent CLIA [id number] Nucleated RBC (Bld) [#/Vol] 0.00 10*3/uL Normal <=0.10 [facility] Comment on above: Performed By: #### 5 7021-8 #### [place] [address] Comprehensive Ophthalmologist - Klaudia Sargent CLIA [id number] Platelet mean volume (Bld) [Entitic vol] 10.0 fL Normal 9.0-13.0 [facility] Comment on above: Performed By: #### 5 7021-8 #### [address] [place] [address] Comprehensive Ophthalmologist - Klaudia Sargent CLIA [id number] Platelets (Bld) [#/Vol] 211 10*3/uL Normal 130-400 [facility] Comment on above: Performed By: #### 5 7021-8 #### [facility] [address] [place] [address] Comprehensive Ophthalmologist - Klaudia GAMBOA [id number] RBC (Bld) [#/Vol] 4.12 10*6/uL Normal 4.00-6.30 [facility] Comment on above: Performed By: #### 5 7021-8 #### [facility] [address] [place] [address] Comprehensive Ophthalmologist - Klaudia GAMBOA [id number] WBC (Bld) [#/Vol] 4.49 10*3/uL Low 4.80-10.80 [facility] Comment on above: Performed By: #### 5 7021-8 #### [facility] [address] [place] [address] Comprehensive Ophthalmologist - Klaudia GAMBOA [id number] Comprehensive metabolic 2000 panelon 06-26-2025 Albumin [Mass/Vol] 3.2 g/dL Low 3.4-5.0 [facility] Comment on above: Performed By: #### 2 4323-8 #### [facility] [address] [place] [address] Comprehensive Ophthalmologist - Klaudia GAMBOA [id number] ALP [Catalytic activity/Vol] 88 U/L Normal 50-136 [facility] Comment on above: Performed By: #### 2 4323-8 #### [facility] [address] [place] [address] Comprehensive Ophthalmologist - Klaudia GAMBOA [id number] ALT [Catalytic activity/Vol] 17 U/L Normal 14-59 [facility] Comment on above: Performed By: #### 2 4323-8 #### [facility] [address] [place] [address] Comprehensive Ophthalmologist - Klaudia GAMBOA [id number] Anion gap [Moles/Vol] 8.0 mmol/L Normal <=15.0 [facility] Comment on above: Performed By: #### 2 4323-8 #### [facility] [address] [place] [address] Comprehensive Ophthalmologist - Klaudia Sargent CLIA [id number] AST [Catalytic activity/Vol] 24 U/L Normal 15-37 [facility] Comment on above: Performed By: #### 2 4323-8 #### [facility] [address] [place] [address] Comprehensive Ophthalmologist - Klaudia Sargent CLIA [id number] Bilirubin [Mass/Vol] 0.6 mg/dL Normal 0.2-1.0 [facility] Comment on above: Performed By: #### 2 4323-8 #### [facility] [address] [place] [address] Comprehensive Ophthalmologist - Klaudia Sargent CLIA [id number] Calcium [Mass/Vol] 8.9 mg/dL Normal 8.5-10.1 [facility] Comment on above: Performed By: #### 2 4323-8 #### [facility] [address] [place] [address] Comprehensive Ophthalmologist - Klaudia Sargent CLIA [id number] Chloride [Moles/Vol] 107 mmol/L Normal 98-107 [facility] Comment on above: Performed By: #### 2 4323-8 #### [facility] [address] [place] [address] Comprehensive Ophthalmologist - Klaudia Sargent CLIA [id number] CO2 [Moles/Vol] 28 mmol/L Normal 21-32 [facility] Comment on above: Performed By: #### 2 4323-8 #### [facility] [address] [place] [address] Comprehensive Ophthalmologist - Klaudia Sargent CLIA [id number] Creatinine [Mass/Vol] 0.84 mg/dL Normal 0.51-0.95 [facility] Comment on above: Performed By: #### 2 4323-8 #### [facility] [address] [place] [address] Comprehensive Ophthalmologist - Klaudia Sargent CLIA [id number] GFR/1.73 sq M.predicted MDRD (S/P/Bld) [Vol rate/Area] mL/min/{1.73_m2} Normal >=60 [facility] Comment on above: Performed By: #### 2 4323-8 #### [facility] [address] [place] [address] Comprehensive Ophthalmologist - Klaudia GAMBOA [id number] Glucose [Mass/Vol] 78 mg/dL Normal 74-106 [facility] Comment on above: Performed By: #### 2 4323-8 #### [facility] [address] [place] [address] Comprehensive Ophthalmologist - Klaudia GAMBOA [id number] HGFR GLOMERULAR FILTRATIO N RATE INTERPRETATION~The eGFR is calculated using the MDRD equation.~This equation has been validated in patients with chronic kidney disease;~however, it underestimates the GFR in healthy patients with GFR's over 60 mL/min.~The equation is not valid in children under the age of 18.~NOTE: Criteria for Chronic Kidney Disease:~ ~1. Kidney damage for at least three months, as defined~by structural or functional abnormalities of the kidney,~with or without decreased glomerular filtration rate, manifested by either:~* Pathological abnormalities or~* Markers of Kidney damage, including abnormalities in~the composition of the blood or urine or abnormalities in imaging tests.~ ~2. GFR <60 mL/min/1.73 m squared for at least three months, with or without kidney damage.~ Normal [facility] Comment on above: Performed By: #### 2 4323-8 #### [facility] [address] [place] [address] Comprehensive Ophthalmologist - Klaudia GAMBOA [id number] Potassium [Moles/Vol] 4.6 mmol/L Normal 3.5-5.1 [facility] Comment on above: Performed By: #### 2 4323-8 #### [facility] [address] [place] [address] Comprehensive Ophthalmologist - Klaudia GAMBOA [id number] Protein [Mass/Vol] 6.4 g/dL Normal 6.4-8.2 [facility] Comment on above: Performed By: #### 2 4323-8 #### [facility] [address] [place] [address] Comprehensive Ophthalmologist - Klaudia BERNARDIA [id number] Sodium [Moles/Vol] 143 mmol/L Normal 136-145 [facility] Comment on above: Performed By: #### 2 4323-8 #### [facility] [address] [place] [address]. [place] [address] Comprehensive Ophthalmologist - Klaudia BERNARDIA [id number] Urea nitrogen [Mass/Vol] 17 mg/dL Normal 7-17 [facility] Comment on above: Performed By: #### 2 4323-8 #### [address] [place] [address] Comprehensive Ophthalmologist - Klaudia BERNARDIA [id number] CBC W Auto Differential pane l (Bld)on 04-03-2025 Basophils (Bld) [#/Vol] 0.06 10*3/uL Normal <=0.70 [facility] Comment on above: Performed By: #### 5 7021-8 #### [address] [place] [address] Comprehensive Ophthalmologist - Klaudia BERNARDIA [id number] Basophils/100 WBC (Bld) 0.9 % Normal <=2.0 [facility] Comment on above: Performed By: #### 5 7021-8 #### [address] [place] [address] Comprehensive Ophthalmologist - Klaudia Sargent CLIA [id number] Eosinophils (Bld) [#/Vol] 0.11 10*3/uL Normal <=0.70 [facility] Comment on above: Performed By: #### 5 7021-8 #### [address] [place] [address] Comprehensive Ophthalmologist - Klaudia Sargent CLIA [id number] Eosinophils/100 WBC (Bld) 1.6 % Normal <=10.0 [facility] Comment on above: Performed By: #### 5 7021-8 #### [address] [place] [address] Comprehensive Ophthalmologist - Klaudia Sargent CLIA [id number] Erythrocyte distribution width (RBC) [Entitic vol] 50.4 fL High 36.4-46.3 [facility] Comment on above: Performed By: #### 5 7021-8 #### [address] [place] [address] Comprehensive Ophthalmologist - Klaudia BERNARDIA [id number] Hematocrit (Bld) [Volume fraction] 41.3 % Normal 37.0-47.0 [facility] Comment on above: Performed By: #### 5 7021-8 #### [address] [place] [address] Comprehensive Ophthalmologist - Klaudia BERNARDIA [id number] Hemoglobin (Bld) [Mass/Vol] 13.3 g/dL Normal 12.0-16.0 [facility] Comment on above: Performed By: #### 5 7021-8 #### [address] [place] [address] Comprehensive Ophthalmologist - Klaudia BERNARDIA [id number] Immature granulocytes (Bld) [#/Vol] 0.01 10*3/uL Normal <=0.10 [facility] Comment on above: Performed By: #### 5 7021-8 #### [address] [place] [address] Comprehensive Ophthalmologist - Klaudia BERNARDIA [id number] Immature granulocytes/100 WBC (Bld) 0.10 % Normal <=1.50 [facility] Comment on above: Performed By: #### 5 7021-8 #### [address] [place] [address] Comprehensive Ophthalmologist - Klaudia BERNARDIA [id number] Lymphocytes (Bld) [#/Vol] 1.54 10*3/uL Normal 1.20-3.40 [facility] Comment on above: Performed By: #### 5 7021-8 #### [address] [place] [address] Comprehensive Ophthalmologist - Klaudia Sargent CLIA [id number] Lymphocytes/100 WBC (Bld) 22.5 % Normal 20.0-40.0 [facility] Comment on above: Performed By: #### 5 7021-8 #### [facility] [address] [place] [address] Comprehensive Ophthalmologist - Klaudia GAMBOA [id number] MCH (RBC) [Entitic mass] 32.1 pg High 27.0-31.0 [facility] Comment on above: Performed By: #### 5 7021-8 #### [address] [place] [address] Comprehensive Ophthalmologist - Klaudia GAMBOA [id number] MCHC (RBC) [Mass/Vol] 32.2 g/dL Normal 32.0-36.0 [facility] Comment on above: Performed By: #### 5 7021-8 #### [address] [place] [address] Comprehensive Ophthalmologist - Klaudia GAMBOA [id number] MCV (RBC) [Entitic vol] 99.8 fL Normal 80.0-100.0 [facility] Comment on above: Performed By: #### 5 7021-8 #### [address] [place] [address] Comprehensive Ophthalmologist - Klaudia BERNARDIA [id number] Monocytes (Bld) [#/Vol] 0.65 10*3/uL High 0.10-0.60 [facility] Comment on above: Performed By: #### 5 7021-8 #### [place] [address] [place] [address] Comprehensive Ophthalmologist - Klaudia BERNARDIA [id number] Monocytes/100 WBC (Bld) 9.5 % High <=8.0 [facility] Comment on above: Performed By: #### 5 7021-8 #### [address] [address] [facility] [place] [address] Comprehensive Ophthalmologist - Klaudia BERNARDIA [id number] Neutrophils (Bld) [#/Vol] 4.47 10*3/uL Normal 1.40-6.50 [facility] Comment on above: Performed By: #### 5 7021-8 #### [address] [place] [address] Comprehensive Ophthalmologist - Klaudia BERNARDIA [id number] Neutrophils/100 WBC (Bld) 65.4 % Normal 50.0-70.0 [facility] Comment on above: Performed By: #### 5 7021-8 #### [facility] [address] [place] [address] Comprehensive Ophthalmologist - Klaudia BERNARDIA [id number] Nucleated RBC (Bld) [#/Vol] 0.00 10*3/uL Normal <=0.10 [facility] Comment on above: Performed By: #### 5 7021-8 #### [address] [place] [address] Comprehensive Ophthalmologist - Klaudia BERNARDIA [id number] Platelet mean volume (Bld) [Entitic vol] 9.9 fL Normal 9.0-13.0 [facility] Comment on above: Performed By: #### 5 7021-8 #### [address] [place] [address] Comprehensive Ophthalmologist - Klaudia BERNARDIA [id number] Platelets (Bld) [#/Vol] 181 10*3/uL Normal 130-400 [facility] Comment on above: Performed By: #### 5 7021-8 #### [address] [place] [address] Comprehensive Ophthalmologist - Klaudia BERNARDIA [id number] RBC (Bld) [#/Vol] 4.14 10*6/uL Normal 4.00-6.30 [facility] Comment on above: Performed By: #### 5 7021-8 #### [place] [address] [place] [address] Comprehensive Ophthalmologist - Klaudia BERNARDIA [id number] WBC (Bld) [#/Vol] 6.84 10*3/uL Normal 4.80-10.80 [facility] Comment on above: Performed By: #### 5 7021-8 #### [place] [address] [place] [address] Comprehensive Ophthalmologist - Klaudia BENRARDIA [id number] Comprehensive metabolic 2000 panelon 04-03-2025 Albumin [Mass/Vol] 3.2 g/dL Low 3.4-5.0 [facility] Comment on above: Performed By: #### 2 4323-8 #### [facility] [address] [place] [address] Comprehensive Ophthalmologist - Klaudia Sargent CLIA [id number] ALP [Catalytic activity/Vol] 112 U/L Normal 50-136 [facility] Comment on above: Performed By: #### 2 4323-8 #### [facility] [address] [place] [address] Comprehensive Ophthalmologist - Klaudia Sargent CLIA [id number] ALT [Catalytic activity/Vol] 15 U/L Normal 14-59 [facility] Comment on above: Performed By: #### 2 4323-8 #### [facility] [address] [place] [address] Comprehensive Ophthalmologist - Klaudia Sargent CLIA [id number] Anion gap [Moles/Vol] 7.0 mmol/L Normal <=15.0 [facility] Comment on above: Performed By: #### 2 4323-8 #### [facility] [address] [place] [address] Comprehensive Ophthalmologist - Klaudia Sargent CLIA [id number] AST [Catalytic activity/Vol] 22 U/L Normal 15-37 [facility] Comment on above: Performed By: #### 2 4323-8 #### [facility] [address] [place] [address] Comprehensive Ophthalmologist - Klaudia Sargent CLIA [id number] Bilirubin [Mass/Vol] 0.5 mg/dL Normal 0.2-1.0 [facility] Comment on above: Performed By: #### 2 4323-8 #### [facility] [address] [place] [address] Comprehensive Ophthalmologist - Klaudia BERNARDIA [id number] Calcium [Mass/Vol] 9.2 mg/dL Normal 8.5-10.1 [facility] Comment on above: Performed By: #### 2 4323-8 #### [facility] [address] [place] [address] Comprehensive Ophthalmologist - Klaudia BERNARDIA [id number] Chloride [Moles/Vol] 105 mmol/L Normal 98-107 [facility] Comment on above: Performed By: #### 2 4323-8 #### [facility] [address] [place] [address] Comprehensive Ophthalmologist - Klaudia BERNARDIA [id number] CO2 [Moles/Vol] 29 mmol/L Normal 21-32 [facility] Comment on above: Performed By: #### 2 4323-8 #### [facility] [address] [place] [address] Comprehensive Ophthalmologist - Klaudia GAMBOA [id number] Creatinine [Mass/Vol] 0.74 mg/dL Normal 0.51-0.95 [facility] Comment on above: Performed By: #### 2 4323-8 #### [facility] [address] [place] [address] Comprehensive Ophthalmologist - Klaudia GAMBOA [id number] GFR/1.73 sq M.predicted MDRD (S/P/Bld) [Vol rate/Area] mL/min/{1.73_m2} Normal >=60 [facility] Comment on above: Performed By: #### 2 4323-8 #### [facility] [address] [place] [address] Comprehensive Ophthalmologist - Klaudia GAMBOA [id number] Glucose [Mass/Vol] 66 mg/dL Low 74-106 [facility] Comment on above: Performed By: #### 2 4323-8 #### [facility] [address] [place] [address] Comprehensive Ophthalmologist - Klaudia GAMBOA [id number] HGFR GLOMERULAR FILTRATIO N RATE INTERPRETATION~The eGFR is calculated using the MDRD equation.~This equation has been validated in patients with chronic kidney disease;~however, it underestimates the GFR in healthy patients with GFR's over 60 mL/min.~The equation is not valid in children under the age of 18.~NOTE: Criteria for Chronic Kidney Disease:~ ~1. Kidney damage for at least three months, as defined~by structural or functional abnormalities of the kidney,~with or without decreased glomerular filtration rate, manifested by either:~* Pathological abnormalities or~* Markers of Kidney damage, including abnormalities in~the composition of the blood or urine or abnormalities in imaging tests.~ ~2. GFR <60 mL/min/1.73 m squared for at least three months, with or without kidney damage.~ Normal [facility] Comment on above: Performed By: #### 2 4323-8 #### [facility] [address] [place] [address] Comprehensive Ophthalmologist - Klaudia Sargent CLIA [id number] Potassium [Moles/Vol] 4.1 mmol/L Normal 3.5-5.1 [facility] Comment on above: Performed By: #### 2 4323-8 #### [facility] [address] [facility] [address] [facility] [place] [address] Comprehensive Ophthalmologist - Klaudia Sargent CLIA [id number] Protein [Mass/Vol] 6.5 g/dL Normal 6.4-8.2 [facility] Comment on above: Performed By: #### 2 4323-8 #### [facility] [address] [facility] [place] [address] Comprehensive Ophthalmologist - Klaudia Sargent CLIA [id number] Sodium [Moles/Vol] 141 mmol/L Normal 136-145 [facility] Comment on above: Performed By: #### 2 4323-8 #### [facility] [address] [place] [address]. [place] [address] Comprehensive Ophthalmologist - Klaudia Sargent CLIA [id number] Urea nitrogen [Mass/Vol] 17 mg/dL Normal 7-17 [facility] Comment on above: Performed By: #### 2 4323-8 #### [facility] [address] [facility] [place] [address] Comprehensive Ophthalmologist - Klaudia BERNARDIA [id number] EYLEA (AFLIBERCEPT) 2MG INTR AVITREAL INJECTION OD (RIGHT EYE)on 01-18-2025 [facility] OCT MACULA CIRRUS OU (BOTH E YES)on 01-18-2025 [facility] Radiology Study observation (narrative) [facility] CBC W Auto Differential pane l (Bld)on 01-09-2025 Basophils (Bld) [#/Vol] 0.06 10*3/uL Normal <=0.70 [facility] Comment on above: Performed By: #### 5 7021-8 #### [facility] [address] [place] [address] Comprehensive Ophthalmologist - Klaudia BERNARDIA [id number] Basophils/100 WBC (Bld) 1.1 % Normal <=2.0 [facility] Comment on above: Performed By: #### 5 7021-8 #### [place] [address] [place] [address] Comprehensive Ophthalmologist - Klaudia BERNARDIA [id number] Eosinophils (Bld) [#/Vol] 0.06 10*3/uL Normal <=0.70 [facility] Comment on above: Performed By: #### 5 7021-8 #### [place] [address] [place] [address] Comprehensive Ophthalmologist - Klaudia BERNARDIA [id number] Eosinophils/100 WBC (Bld) 1.1 % Normal <=10.0 [facility] Comment on above: Performed By: #### 5 7021-8 #### [place] [address] [place] [address] Comprehensive Ophthalmologist - Klaudia BERNARDIA [id number] Erythrocyte distribution width (RBC) [Entitic vol] 53.3 fL High 36.4-46.3 [facility] Comment on above: Performed By: #### 5 7021-8 #### [place] [address] [place] [address] Comprehensive Ophthalmologist - Klaudia BERNARDIA [id number] Hematocrit (Bld) [Volume fraction] 40.0 % Normal 37.0-47.0 [facility] Comment on above: Performed By: #### 5 7021-8 #### [place] [address] [place] [address] Comprehensive Ophthalmologist - Klaudia BERNARDIA [id number] Hemoglobin (Bld) [Mass/Vol] 13.2 g/dL Normal 12.0-16.0 [facility] Comment on above: Performed By: #### 5 7021-8 #### [address] [place] [address] Comprehensive Ophthalmologist - Klaudia Sargent CLIA [id number] Immature granulocytes (Bld) [#/Vol] 0.02 10*3/uL Normal <=0.10 [facility] Comment on above: Performed By: #### 5 7021-8 #### [address] [place] [address] Comprehensive Ophthalmologist - Klaudia BERNARDIA [id number] Immature granulocytes/100 WBC (Bld) 0.40 % Normal <=1.50 [facility] Comment on above: Performed By: #### 5 7021-8 #### [place] [address] Comprehensive Ophthalmologist - Klaudia Sargent CLIA [id number] Lymphocytes (Bld) [#/Vol] 1.20 10*3/uL Normal 1.20-3.40 [facility] Comment on above: Performed By: #### 5 7021-8 #### [place] [address] Comprehensive Ophthalmologist - Klaudia BERNARDIA [id number] Lymphocytes/100 WBC (Bld) 22.3 % Normal 20.0-40.0 [facility] Comment on above: Performed By: #### 5 7021-8 #### [place] [address] Comprehensive Ophthalmologist - Klaudia BERNARDIA [id number] MCH (RBC) [Entitic mass] 32.5 pg High 27.0-31.0 [facility] Comment on above: Performed By: #### 5 7021-8 #### [address] [place] [address] Comprehensive Ophthalmologist - Klaudia BERNARDIA [id number] MCHC (RBC) [Mass/Vol] 33.0 g/dL Normal 32.0-36.0 [facility] Comment on above: Performed By: #### 5 7021-8 #### [address] [place] [address] Comprehensive Ophthalmologist - Klaudia BERNARDIA [id number] MCV (RBC) [Entitic vol] 98.5 fL Normal 80.0-100.0 [facility] Comment on above: Performed By: #### 5 7021-8 #### [address] [place] [address] Comprehensive Ophthalmologist - Klaudia Sargent CLIA [id number] Monocytes (Bld) [#/Vol] 0.43 10*3/uL Normal 0.10-0.60 [facility] Comment on above: Performed By: #### 5 7021-8 #### [address] [place] [address] Comprehensive Ophthalmologist - Klaudia Sargent CLIA [id number] Monocytes/100 WBC (Bld) 8.0 % Normal <=8.0 [facility] Comment on above: Performed By: #### 5 7021-8 #### [address] [place] [address] Comprehensive Ophthalmologist - Klaudia Sargent CLIA [id number] Neutrophils (Bld) [#/Vol] 3.62 10*3/uL Normal 1.40-6.50 [facility] Comment on above: Performed By: #### 5 7021-8 #### [address] [place] [address] Comprehensive Ophthalmologist - Klaudia Sargent CLIA [id number] Neutrophils/100 WBC (Bld) 67.1 % Normal 50.0-70.0 [facility] Comment on above: Performed By: #### 5 7021-8 #### [address] [place] [address] Comprehensive Ophthalmologist - Klaudia BERNARDIA [id number] Nucleated RBC (Bld) [#/Vol] 0.00 10*3/uL Normal <=0.10 [facility] Comment on above: Performed By: #### 5 7021-8 #### [facility] [address] [place] [address] Comprehensive Ophthalmologist - Klaudia GAMBOA [id number] Platelet mean volume (Bld) [Entitic vol] 10.0 fL Normal 9.0-13.0 [facility] Comment on above: Performed By: #### 5 7021-8 #### [address] [place] [address] Comprehensive Ophthalmologist - Klaudia GAMBOA [id number] Platelets (Bld) [#/Vol] 224 10*3/uL Normal 130-400 [facility] Comment on above: Performed By: #### 5 7021-8 #### [address] [place] [address] Comprehensive Ophthalmologist - Klaudia GAMBOA [id number] RBC (Bld) [#/Vol] 4.06 10*6/uL Normal 4.00-6.30 [facility] Comment on above: Performed By: #### 5 7021-8 #### [address] [place] [address] Comprehensive Ophthalmologist - Klaudia GAMBOA [id number] WBC (Bld) [#/Vol] 5.39 10*3/uL Normal 4.80-10.80 [facility] Comment on above: Performed By: #### 5 7021-8 #### [address] [place] [address] Comprehensive Ophthalmologist - Klaudia GAMBOA [id number] Comprehensive metabolic 2000 panelon 01-09-2025 Albumin [Mass/Vol] 3.6 g/dL Normal 3.4-5.0 [facility] Comment on above: Performed By: #### 2 4323-8 #### [address] [place] [address] Comprehensive Ophthalmologist - Klaudia GAMBOA [id number] ALP [Catalytic activity/Vol] 94 U/L Normal 50-136 [facility] Comment on above: Performed By: #### 2 4323-8 #### [address] [place] [address] Comprehensive Ophthalmologist - Klaudia Sargent CLIA [id number] ALT [Catalytic activity/Vol] 17 U/L Normal 14-59 [facility] Comment on above: Performed By: #### 2 4323-8 #### [facility] [address] [place] [address] Comprehensive Ophthalmologist - Klaudia Sargent CLIA [id number] Anion gap [Moles/Vol] 7.0 mmol/L Normal <=15.0 [facility] Comment on above: Performed By: #### 2 4323-8 #### [facility] [address] [place] [address] Comprehensive Ophthalmologist - Klaudia Sargent CLIA [id number] AST [Catalytic activity/Vol] 23 U/L Normal 15-37 [facility] Comment on above: Performed By: #### 2 4323-8 #### [facility] [address] [place] [address] Comprehensive Ophthalmologist - Klaudiareyes ChenSargent CLIA [id number] Bilirubin [Mass/Vol] 0.5 mg/dL Normal 0.2-1.0 [facility] Comment on above: Performed By: #### 2 4323-8 #### [facility] [address] [place] [address] Comprehensive Ophthalmologist - Klaudia Sargent CLIA [id number] Calcium [Mass/Vol] 9.4 mg/dL Normal 8.5-10.1 [facility] Comment on above: Performed By: #### 2 4323-8 #### [facility] [address] [place] [address] Comprehensive Ophthalmologist - Klaudiareyes ChenSargent CLIA [id number] Chloride [Moles/Vol] 105 mmol/L Normal 98-107 [facility] Comment on above: Performed By: #### 2 4323-8 #### [facility] [address] [place] [address] Comprehensive Ophthalmologist - Klaudia Sargent CLIA [id number] CO2 [Moles/Vol] 29 mmol/L Normal 21-32 [facility] Comment on above: Performed By: #### 2 4323-8 #### [facility] [address] [place] [address] Comprehensive Ophthalmologist - [facility] BEE [id number] Creatinine [Mass/Vol] 0.75 mg/dL Normal 0.51-0.95 [facility] Comment on above: Performed By: #### 2 4323-8 #### [facility] [address] [place] [address] Comprehensive Ophthalmologist - [facility] [id number] GFR/1.73 sq M.predicted MDRD (S/P/Bld) [Vol rate/Area] mL/min/{1.73_m2} Normal >=60 [facility] Comment on above: Performed By: #### 2 4323-8 #### [facility] [address] [place] [address] Comprehensive Ophthalmologist - [facility] BEE [id number] Glucose [Mass/Vol] 81 mg/dL Normal 74-106 [facility] Comment on above: Performed By: #### 2 4323-8 #### [facility] [address] - [facility] [id number] HGFR GLOMERULAR FILTRATIO N RATE INTERPRETATION~The eGFR is calculated using the MDRD equation.~This equation has been validated in patients with chronic kidney disease;~however, it underestimates the GFR in healthy patients with GFR's over 60 mL/min.~The equation is not valid in children under the age of 18.~NOTE: Criteria for Chronic Kidney Disease:~ ~1. Kidney damage for at least three months, as defined~by structural or functional abnormalities of the kidney,~with or without decreased glomerular filtration rate, manifested by either:~* Pathological abnormalities or~* Markers of Kidney damage, including abnormalities in~the composition of the blood or urine or abnormalities in imaging tests.~ ~2. GFR <60 mL/min/1.73 m squared for at least three months, with or without kidney damage.~ Normal [facility] Comment on above: Performed By: #### 2 4323-8 #### [facility] [address] [place] [address] Comprehensive Ophthalmologist - Klaudia Sagrent CLIA [id number] Potassium [Moles/Vol] 4.6 mmol/L Normal 3.5-5.1 [facility] Comment on above: Performed By: #### 2 4323-8 #### [facility] [address] [place] [address] Comprehensive Ophthalmologist - Klaudia BERNARDIA [id number] Protein [Mass/Vol] 6.8 g/dL Normal 6.4-8.2 [facility] Comment on above: Performed By: #### 2 4323-8 #### [facility] [address] [place] [address] Comprehensive Ophthalmologist - Klaudia BERNARDIA [id number] Sodium [Moles/Vol] 141 mmol/L Normal 136-145 [facility] Comment on above: Performed By: #### 2 4323-8 #### [facility] [address] [place] [address] Comprehensive Ophthalmologist - Klaudia BERNARDIA [id number] Urea nitrogen [Mass/Vol] 21 mg/dL High 7-17 [facility] Comment on above: Performed By: #### 2 4323-8 #### [place] [address] [place] [address] Comprehensive Ophthalmologist - Klaudia BERNARDIA [id number] EYLEA (AFLIBERCEPT) 2MG INTR AVITREAL INJECTION OD (RIGHT EYE)on 11-16-2024 [facility] OCT MACULA CIRRUS OU (BOTH E YES)on 11-16-2024 [facility] Radiology Study observation (narrative) [facility] C REACTIVE PROTEINon 024 CRP [Mass/Vol] 5 mg/L Normal <=10 [facility] Comment on above: Performed By: #### 2 4323-8, 1988-03 #### [facility] [address] [place] [address] Comprehensive Ophthalmologist - Klaudia Sargent CLIA [id number] CBC W Auto Differential pane l (Bld)on 10-09-2024 Basophils (Bld) [#/Vol] 0.10 10*3/uL Normal <=0.70 [facility] Comment on above: Performed By: #### 5 7021-8 #### [facility] [address] [place] [address] Comprehensive Ophthalmologist - Klaudia Sargent CLIA [id number] Basophils/100 WBC (Bld) 1.7 % Normal <=2.0 [facility] Comment on above: Performed By: #### 5 7021-8 #### [address] [facility] [place] [address] Comprehensive Ophthalmologist - Klaudia BERNARDIA [id number] Eosinophils (Bld) [#/Vol] 0.26 10*3/uL Normal <=0.70 [facility] Comment on above: Performed By: #### 5 7021-8 #### [address] [place] [address] Comprehensive Ophthalmologist - Klaudia Sargent CLIA [id number] Eosinophils/100 WBC (Bld) 4.5 % Normal <=10.0 [facility] Comment on above: Performed By: #### 5 7021-8 #### [address] Director - Klaudia Sargent CLIA [id number] Erythrocyte distribution width (RBC) [Entitic vol] 51.4 fL High 36.4-46.3 [facility] Comment on above: Performed By: #### 5 7021-8 #### [address] [place] [address] Comprehensive Ophthalmologist - Klaudia Sargent CLIA [id number] Hematocrit (Bld) [Volume fraction] 40.1 % Normal 37.0-47.0 [facility] Comment on above: Performed By: #### 5 7021-8 #### [address] [place] [address] Comprehensive Ophthalmologist - Klaudia Sargent CLIA [id number] Hemoglobin (Bld) [Mass/Vol] 12.9 g/dL Normal 12.0-16.0 [facility] Comment on above: Performed By: #### 5 7021-8 #### [facility] [address] [place] [address] Comprehensive Ophthalmologist - Klaudia BERNARDIA [id number] Immature granulocytes (Bld) [#/Vol] 0.01 10*3/uL Normal <=0.10 [facility] Comment on above: Performed By: #### 5 7021-8 #### [facility] [address] [place] [address] Comprehensive Ophthalmologist - Klaudia Sargent CLIA [id number] Immature granulocytes/100 WBC (Bld) 0.20 % Normal <=1.50 [facility] Comment on above: Performed By: #### 5 7021-8 #### [place] [address] [place] [address] Comprehensive Ophthalmologist - Klaudia BERNARDIA [id number] Lymphocytes (Bld) [#/Vol] 1.21 10*3/uL Normal 1.20-3.40 [facility] Comment on above: Performed By: #### 5 7021-8 #### [facility] [address] [place] [address] Comprehensive Ophthalmologist - Klaudia BERNARDIA [id number] Lymphocytes/100 WBC (Bld) 21.1 % Normal 20.0-40.0 [facility] Comment on above: Performed By: #### 5 7021-8 #### [facility] [address] [place] [address] Comprehensive Ophthalmologist - Klaudia BERNARDIA [id number] MCH (RBC) [Entitic mass] 32.2 pg High 27.0-31.0 [facility] Comment on above: Performed By: #### 5 7021-8 #### [facility] [address] [place] [address] Comprehensive Ophthalmologist - Klaudia BERNARDIA [id number] MCHC (RBC) [Mass/Vol] 32.2 g/dL Normal 32.0-36.0 [facility] Comment on above: Performed By: #### 5 7021-8 #### [facility] [address] [place] [address] Comprehensive Ophthalmologist - Klaudia BERNARDIA [id number] MCV (RBC) [Entitic vol] 100.0 fL Normal 80.0-100.0 [facility] Comment on above: Performed By: #### 5 7021-8 #### [address] [place] [address] Comprehensive Ophthalmologist - Klaudia BERNARDIA [id number] Monocytes (Bld) [#/Vol] 0.54 10*3/uL Normal 0.10-0.60 [facility] Comment on above: Performed By: #### 5 7021-8 #### [address] [place] [address] Comprehensive Ophthalmologist - Klaudia BERNARDIA [id number] Monocytes/100 WBC (Bld) 9.4 % High <=8.0 [facility] Comment on above: Performed By: #### 5 7021-8 #### [address] [place] [address] Comprehensive Ophthalmologist - Klaudia BERNARDIA [id number] Neutrophils (Bld) [#/Vol] 3.61 10*3/uL Normal 1.40-6.50 [facility] Comment on above: Performed By: #### 5 7021-8 #### [address] [place] [address] Comprehensive Ophthalmologist - Klaudia BERNARDIA [id number] Neutrophils/100 WBC (Bld) 63.1 % Normal 50.0-70.0 [facility] Comment on above: Performed By: #### 5 7021-8 #### [address] [place] [address] Comprehensive Ophthalmologist - Klaudia BERNARDIA [id number] Nucleated RBC (Bld) [#/Vol] 0.00 10*3/uL Normal <=0.10 [facility] Comment on above: Performed By: #### 5 7021-8 #### [address] [place] [address] Comprehensive Ophthalmologist - Klaudia Sargent CLIA [id number] Platelet mean volume (Bld) [Entitic vol] 9.9 fL Normal 9.0-13.0 [facility] Comment on above: Performed By: #### 5 7021-8 #### [facility] [address] [facility] [place] [address] Comprehensive Ophthalmologist - Klaudia BERNARDIA [id number] Platelets (Bld) [#/Vol] 255 10*3/uL Normal 130-400 [facility] Comment on above: Performed By: #### 5 7021-8 #### [facility] [address] [place] [address] Comprehensive Ophthalmologist - Klaudia BERNARDIA [id number] RBC (Bld) [#/Vol] 4.01 10*6/uL Normal 4.00-6.30 [facility] Comment on above: Performed By: #### 5 7021-8 #### [address] [place] [address] Comprehensive Ophthalmologist - Klaudia BERNARDIA [id number] WBC (Bld) [#/Vol] 5.73 10*3/uL Normal 4.80-10.80 [facility] Comment on above: Performed By: #### 5 7021-8 #### [facility] [address] [place] [address]. [place] [address] Comprehensive Ophthalmologist - Klaudia GAMBOA [id number] CRP [Mass/Vol]on 10-09-2024 RP CRP INTERPRETATION A single CRP determination is of limited diagnostic value while serial determinations help in establishing the trend of an ongoing inflammatory process. CRP values must be interpreted together with other clinical symptoms. Normal values should only be used as a guide. Normal [facility] Comment on above: Performed By: #### 2 4323-8, 1988-03 #### [facility] [address] [facility] [place] [address] Comprehensive Ophthalmologist - Klaudia GAMBOA [id number] Comprehensive metabolic 2000 panelon 10-09-2024 Albumin [Mass/Vol] 3.2 g/dL Low 3.4-5.0 [facility] Comment on above: Performed By: #### 2 4323-8, 1988-03 #### [facility] [address] [place] [address] Comprehensive Ophthalmologist - Klaudia Sargent CLIA [id number] ALP [Catalytic activity/Vol] 116 U/L Normal 50-136 [facility] Comment on above: Performed By: #### 2 4323-06, 1988-03 #### [facility] [address] [place] [address] Comprehensive Ophthalmologist - Klaudia Sargent CLIA [id number] ALT [Catalytic activity/Vol] 11 U/L Low 14-59 [facility] Comment on above: Performed By: #### 2 4323-06, 1988-03 #### [facility] [address] [place] [address] Comprehensive Ophthalmologist - Klaudia Sargent CLIA [id number] Anion gap [Moles/Vol] 4.0 mmol/L Normal <=15.0 [facility] Comment on above: Performed By: #### 2 4323-06, 1988-03 #### [facility] [address] [place] [address] Comprehensive Ophthalmologist - Klaudia Sargent CLIA [id number] AST [Catalytic activity/Vol] 18 U/L Normal 15-37 [facility] Comment on above: Performed By: #### 2 4323-06, 1988-03 #### [facility] [address] [place] [address] Comprehensive Ophthalmologist - Klaudia Sargent CLIA [id number] Bilirubin [Mass/Vol] 0.5 mg/dL Normal 0.2-1.0 [facility] Comment on above: Performed By: #### 2 4323-06, 1988-03 #### [facility] [address] [place] [address] Comprehensive Ophthalmologist - Klaudia Sargent CLIA [id number] Calcium [Mass/Vol] 9.0 mg/dL Normal 8.5-10.1 [facility] Comment on above: Performed By: #### 2 4323-06, 1988-03 #### [facility] [address] [place] [address] Comprehensive Ophthalmologist - Klaudia BERNARDIA [id number] Chloride [Moles/Vol] 108 mmol/L High 98-107 [facility] Comment on above: Performed By: #### 2 4323-06, 1988-03 #### [facility] [address] [place] [address] Comprehensive Ophthalmologist - Klaudia GAMBOA [id number] CO2 [Moles/Vol] 31 mmol/L Normal 21-32 [facility] Comment on above: Performed By: #### 2 4323-06, 1988-03 #### [facility] [address] [place] [address] Comprehensive Ophthalmologist - Klaudia GAMBOA [id number] Creatinine [Mass/Vol] 0.90 mg/dL Normal 0.51-0.95 [facility] Comment on above: Performed By: #### 2 4323-06, 1988-03 #### [facility] [address] [place] [address] Comprehensive Ophthalmologist - Klaudia GAMBOA [id number] GFR/1.73 sq M.predicted MDRD (S/P/Bld) [Vol rate/Area] mL/min/{1.73_m2} Normal >=60 [facility] Comment on above: Performed By: #### 2 4323-06, 1988-03 #### [facility] [address] [place] [address] Comprehensive Ophthalmologist - Klaudia GAMBOA [id number] Glucose [Mass/Vol] 85 mg/dL Normal 74-106 [facility] Comment on above: Performed By: #### 2 4323-06, 1988-03 #### [facility] [address] [place] [address] Comprehensive Ophthalmologist - Klaudia GAMBOA [id number] HGFR GLOMERULAR FILTRATIO N RATE INTERPRETATION~The eGFR is calculated using the MDRD equation.~This equation has been validated in patients with chronic kidney disease;~however, it underestimates the GFR in healthy patients with GFR's over 60 mL/min.~The equation is not valid in children under the age of 18.~NOTE: Criteria for Chronic Kidney Disease:~ ~1. Kidney damage for at least three months, as defined~by structural or functional abnormalities of the kidney,~with or without decreased glomerular filtration rate, manifested by either:~* Pathological abnormalities or~* Markers of Kidney damage, including abnormalities in~the composition of the blood or urine or abnormalities in imaging tests.~ ~2. GFR <60 mL/min/1.73 m squared for at least three months, with or without kidney damage.~ Normal [facility] Comment on above: Performed By: #### 2 4323-06, 1988-03 #### [facility] [address] [facility] [address] [place] [address] Comprehensive Ophthalmologist - Klaudia BERNARDIA [id number] Potassium [Moles/Vol] 4.4 mmol/L Normal 3.5-5.1 [facility] Comment on above: Performed By: #### 2 4323-06, 1988-03 #### [address] [place] [address] Comprehensive Ophthalmologist - Klaudia BERNARDIA [id number] Protein [Mass/Vol] 6.3 g/dL Low 6.4-8.2 [facility] Comment on above: Performed By: #### 2 4323-06, 1988-03 #### [facility] [address] [facility] [address] [facility] [place] [address] Comprehensive Ophthalmologist - Klaudia BERNARDIA [id number] Sodium [Moles/Vol] 143 mmol/L Normal 136-145 [facility] Comment on above: Performed By: #### 2 4323-06, 1988-03 #### [facility] [address] [place] [address]. [place] [address] Comprehensive Ophthalmologist - Klaudia BERNARDIA [id number] Urea nitrogen [Mass/Vol] 18 mg/dL High 7-17 [facility] Comment on above: Performed By: #### 2 4323-06, 1988-03 #### [facility] [address] [facility] [address] [facility] [place] [address] Comprehensive Ophthalmologist - Klaudia BERNARDIA [id number] SEDIMENTATION RATEon 024 ESR (Bld) [Velocity] 12 mm/h Normal 2-15 [facility] Comment on above: Performed By: #### 3 0341-2 #### [facility] [address] [place] [address] Comprehensive Ophthalmologist - Klaudia GAMBOA [id number] EYLEA (AFLIBERCEPT) 2MG INTR AVITREAL INJECTION OD (RIGHT EYE)on 09-14-2024 [facility] OCT MACULA CIRRUS OU (BOTH E YES)on 09-14-2024 [facility] Radiology Study observation (narrative) [facility] US Pelvison 09-04-2024 Indication left ovarian cyst Impression Normal appearing axial uterus that measures 58 mm x 31 mm x 43 mm. Endometrium contains a small anechoic fluid collection and measures 3.1 mm. Right ovary is not visualized. Left ovary contains an 81 x 89 x 60 mm unilocular simple cyst. No adnexal masses were observed. There is no free fluid visualized in the peritoneal cavity. Comparison to ultrasound on 06/07/2023: Left ovary contained a 80 x 68 x 91 mm unilocular simple cyst. Comparison to ultrasound on 08/17/2022: Left ovary contained an 87 x 68 x 96 mm unilocular simple cyst. Comparison to ultrasound on 03/18/2021: Left ovary contained a 93 x 67 x 73 mm unilocular simple cyst. Recommendations Stable , O-RADS 2 left ovarian simple cyst, almost certainly benign. Follow up ultrasound is recommended in 12 months due to size of cyst. History DIRECTOR SOCIAL History Postmenopausal: Postmenopausal Menopause 52 yrs Other: Hx ovarian cysts Menstrual History HRT: No Method Transabdominal, transvaginal, 3D ultrasound examination, Color Doppler examination. View: Suboptimal view: restricted by increased bowel activity. Suboptimal view: restricted by increased bowel gas Uterus Uterus: Visualized Uterus position: axial Description of uterine malformations: none Myometrium: heterogeneous Endometrium: intracavitary fluid: anechogenic Cervix details: cystic lesions identified suggesting superficial Nabothian cysts Uterus length 58 mm Uterus width 43 mm Uterus height 31 mm Uterus Vol 40.0 cm Endometrial thickness single layer 1.2 mm Endom. th. single layer 1.9 mm Side: anterior Side: posterior Endometrial thickness, total 3.1 mm Right Ovary Rt ovary: Not visualized Left Ovary Lt ovary: Visualized Lt ovary D1 86 mm Lt ovary D2 93 mm Lt ovary D3 65 mm Lt ovary Vol 273.1 cm Lt ovarian cyst(s): Cysts identified Lt ovarian cyst D1 81 mm Lt ovarian cyst D2 89 mm Lt ovarian cyst D3 60 mm Lt ovarian cyst mean 76.7 mm Lt ovarian cyst vol 226.477 cm Lt ovarian cyst findings: Unilocular simple cyst Cul de Sac Visualized. no free fluid visualized Performed By: Keily Lemus RDMS Read By: Leigha Kessler M.D. MATERNAL MEDICINE [facility] US Pelvison 09-01-2024 Radiology Study observation (narrative) [facility] EYLEA (AFLIBERCEPT) 2MG INTR AVITREAL INJECTION OD (RIGHT EYE)on 07-20-2024 [facility] OCT MACULA CIRRUS OU (BOTH E YES)on 07-20-2024 [facility] Radiology Study observation (narrative) [facility] CBC W/Diff, Automatedon Absolute Lymph 1.38 X10 3/uL Normal 0.83-4.51 [facility] Comment on above: Performed By: #### L 100.0100, L500.4050 #### [facility] [address] [place], [address] Absolute Neut 4.3 X10 3/uL Normal 2.0-7.7 [facility] Comment on above: Performed By: #### L 100.0100, L500.4050 #### [facility] [address] [place], [address] Basophils/100 WBC (Bld) 1.3 % High 0-1 [facility] Comment on above: Performed By: #### L 100.0100, L500.4050 #### [facility] [address] [place], [address] Eosinophils/100 WBC (Bld) 1.3 % Normal 0-5 [facility] Comment on above: Performed By: #### L 100.0100, L500.4050 #### [facility] [address] [place], [address] Erythrocyte distribution width (RBC) [Ratio] 15.0 % High 11.6-14.6 [facility] Comment on above: Performed By: #### L 100.0100, L500.4050 #### [facility] [address] [place], [address] Hematocrit (Bld) [Volume fraction] 40.6 % Normal 37-47 [facility] Comment on above: Performed By: #### L 100.0100, L500.4050 #### [facility] [address] [place], [address] Hemoglobin (Bld) [Mass/Vol] 12.9 g/dL Normal 12.0-15.0 [facility] Comment on above: Performed By: #### L 100.0100, L500.4050 #### [facility] [address] [place], [address] IG% 0.300 Normal 0.0-0.9 [facility] Comment on above: Result Comment: IG% - Immature Granulocytes (promyelocytes, myelocytes and metamyelocytes) > 1% indicates that a LEFT SHIFT is Present. Performed By: #### L 100.0100, L500.4050 #### [facility] [address] [place], [address] Lymphocytes/100 WBC (Bld) 21.9 % Normal 19-41 [facility] Comment on above: Performed By: #### L 100.0100, L500.4050 #### [facility] [address] [place], [address] MCH (RBC) [Entitic mass] 31.3 pg Normal 27.0-32.0 [facility] Comment on above: Performed By: #### L 100.0100, L500.4050 #### [facility] [address] [place], [address] MCHC (RBC) [Mass/Vol] 31.8 g/dL Low 32-36 [facility] Comment on above: Performed By: #### L 100.0100, L500.4050 #### [facility] [address] [place], [address] MCV (RBC) [Entitic vol] 98.5 fL Normal 81-99 [facility] Comment on above: Performed By: #### L 100.0100, L500.4050 #### [facility] [address] [place], [address] Monocytes/100 WBC (Bld) 7.1 % Normal 0-10 [facility] Comment on above: Performed By: #### L 100.0100, L500.4050 #### [facility] [address] [place], [address] Neutrophils/100 WBC (Bld) 68.1 % Normal 47-70 [facility] Comment on above: Performed By: #### L 100.0100, L500.4050 #### [facility] [address] [place], [address] Nucleated RBC (Bld) [#/Vol] 0 10*3/uL Normal 0-5 [facility] Comment on above: Performed By: #### L 100.0100, L500.4050 #### [facility] [address] [place], [address] Platelet mean volume (Bld) [Entitic vol] 10.8 fL Normal 6.2-12.0 [facility] Comment on above: Performed By: #### L 100.0100, L500.4050 #### [facility] [address] [place], [address] Platelets (Bld) [#/Vol] 252 10*3/uL Normal 150-450 [facility] Comment on above: Performed By: #### L 100.0100, L500.4050 #### [facility] [address] [place], [address] RBC (Bld) [#/Vol] 4.12 10*6/uL Low 4.2-5.4 [facility] Comment on above: Performed By: #### L 100.0100, L500.4050 #### [facility] [address] [place], [address] RDW SD 54.2 fl High 35.1-43.9 [facility] Comment on above: Performed By: #### L 100.0100, L500.4050 #### [facility] [address] [place], [address] WBC (Bld) [#/Vol] 6.3 10*3/uL Normal 4.4-11.0 [facility] Comment on above: Performed By: #### L 100.0100, L500.4050 #### [facility] [address] [place], [address] Comprehensive Metabolic Prof ilon 07-11-2024 Albumin [Mass/Vol] 3.3 g/dL Normal 3.2-5.0 [facility] Comment on above: Performed By: #### L 100.0100, L500.4050 #### [facility] [address] [place], [address] Albumin/Globulin [Mass ratio] 0.9 {ratio} Normal 0.9-2.4 [facility] Comment on above: Performed By: #### L 100.0100, L500.4050 #### [facility] [address] [place], [address] ALK P 100 U/L Normal 45-117 [facility] Comment on above: Performed By: #### L 100.0100, L500.4050 #### [facility] [address] [place], [address] ALT [Catalytic activity/Vol] 20 U/L Normal 13-56 [facility] Comment on above: Performed By: #### L 100.0100, L500.4050 #### [facility] [address] [place], [address] AST [Catalytic activity/Vol] 21 U/L Normal 15-37 [facility] Comment on above: Performed By: #### L 100.0100, L500.4050 #### [facility] [address] [place], [address] Bilirubin [Mass/Vol] 0.50 mg/dL Normal 0.20-1.00 [facility] Comment on above: Result Comment: For patients on eltrombopag therapy, use of Dimension [place] TBIL is not recommended. Performed By: #### L 100.0100, L500.4050 #### [facility] [address] [place], [address] BUN/CRE 15.1 RATIO Normal 10-20 [facility] Comment on above: Performed By: #### L 100.0100, L500.4050 #### [facility] [address] [place], [address] CA,Total 9.3 mg/dL Normal 8.5-10.1 [facility] Comment on above: Performed By: #### L 100.0100, L500.4050 #### [facility] [address] [place], [address] Chloride [Moles/Vol] 106 mmol/L Normal 98-107 [facility] Comment on above: Performed By: #### L 100.0100, L500.4050 #### [facility] [address] [place], [address] CO2 [Moles/Vol] 31.0 mmol/L Normal 21.0-32.0 [facility] Comment on above: Performed By: #### L 100.0100, L500.4050 #### [facility] [address] [place], [address] Creatinine [Mass/Vol] 0.93 mg/dL Normal 0.55-1.02 [facility] Comment on above: Result Comment: The validity of the calculated GFR GFRAA in patients over 70 years has not been determined. Clinical correlation is essential. Performed By: #### L 100.0100, L500.4050 #### [facility] [address] [place], [address] EST GFR - AA 76 mL/min Normal >60 [facility] Comment on above: Result Comment: Afri can Nigerien GFR Calc Performed By: #### L 100.0100, L500.4050 #### [facility] [address] [place], [address] GAP 1 Low 5-15 [facility] Comment on above: Performed By: #### L 100.0100, L500.4050 #### [facility] [address] [place], [address] GFR/1.73 sq M.predicted among non-blacks MDRD (S/P/Bld) [Vol rate/Area] 62 mL/min/{1.73_m2} Normal >60 [facility] Comment on above: Result Comment: Non- GFR Calc Performed By: #### L 100.0100, L500.4050 #### [facility] [address] [place], [address] Globulin (S) [Mass/Vol] 3.6 g/dL Normal 2.2-4.2 [facility] Comment on above: Performed By: #### L 100.0100, L500.4050 #### [facility] [address] [place], [address] Glucose [Mass/Vol] 93 mg/dL Normal 74-106 [facility] Comment on above: Performed By: #### L 100.0100, L500.4050 #### [facility] [address] [place], [address] Potassium [Moles/Vol] 4.5 mmol/L Normal 3.5-5.1 [facility] Comment on above: Performed By: #### L 100.0100, L500.4050 #### [facility] [address] [place], [address] Sodium [Moles/Vol] 138 mmol/L Normal 136-145 [facility] Comment on above: Performed By: #### L 100.0100, L500.4050 #### [facility] [address] [place], [address] T PROT 6.9 g/dL Normal 6.4-8.2 [facility] Comment on above: Performed By: #### L 100.0100, L500.4050 #### [facility] [address] [place], [address] Urea nitrogen [Mass/Vol] 14 mg/dL Normal 7-18 [facility] Comment on above: Performed By: #### L 100.0100, L500.4050 #### [facility] [address] [place], [address] EYLEA (AFLIBERCEPT) 2MG INTR AVITREAL INJECTION OD (RIGHT EYE)on 05-25-2024 [facility] OCT MACULA CIRRUS OU (BOTH E YES)on 05-25-2024 [facility] Radiology Study observation (narrative) [facility] EYLEA (AFLIBERCEPT) 2MG INTR AVITREAL INJECTION OD (RIGHT EYE)on 03-23-2024 [facility] OCT MACULA CIRRUS OU (BOTH E YES)on 03-23-2024 [facility] Radiology Study observation (narrative) [facility] MARGO SCREENING W TOMOon 08-11 [facility] Absolute lymphocyte counton 10-12-2022 Lymphocytes Auto (Unsp spec) [#/Vol] 1.39 10*3/uL 0.83-4.51 [facility] Work Phone: Basophil percentageon 2021 Basophils/100 WBC (Bld) 1.4 % 0-1 [facility] Work Phone: Bilirubin [Mass/Vol] 0.50 mg/dL 0.20-1.00 [facility] Work Phone: Comment on above: For patients on eltr ombopag therapy, use of Dimension [place] TBIL is not recommended. Chloride [Moles/Vol] 109 mmol/L 98-107 [facility] Work Phone: Eosinophils/100 WBC (Bld) 2.4 % 0-5 [facility] Work Phone: [phone] Glucose [Mass/Vol] 83 mg/dL 74-106 [facility] Work Phone: Neutrophils (Bld) [#/Vol] 3.1 10*3/uL 2.0-7.7 [facility] Work Phone: Neutrophils/100 WBC (Bld) 60.1 % 47-70 [facility] Work Phone: Potassium [Moles/Vol] 4.7 mmol/L 3.5-5.1 [facility] Work Phone: Protein [Mass/Vol] 6.7 g/dL 6.4-8.2 [facility] Work Phone: Sodium [Moles/Vol] 140 mmol/L 136-145 [facility] Work Phone: WBC (Bld) [#/Vol] 5.1 10*3/uL 4.4-11.0 [facility] Work Phone: Blood erythrocytes count (nu mber/volume)on 10-12-2022 RBC (Bld) [#/Vol] 4.04 10*6/uL 4.2-5.4 [facility] Work Phone: Blood hemoglobin measurement (mass/volume)on 10-12-2022 Hemoglobin (Bld) [Mass/Vol] 13.4 g/dL 12.0-15.0 [facility] Work Phone: Blood lymphocytes/100 leukoc yteson 10-12-2022 Lymphocytes/100 WBC (Bld) 27.4 % 19-41 [facility] Work Phone: Blood monocytes/100 leukocyt eson 10-12-2022 Monocytes/100 WBC (Bld) 8.5 % 0-10 [facility] Work Phone: Blood platelet mean volumeon 10-12-2022 Platelet mean volume (Bld) [Entitic vol] 10.5 fL 6.2-12.0 [facility] Work Phone: Determination of erythrocyte mean corpuscular volume (MCV)on 10-12-2022 MCV (RBC) [Entitic vol] 101.0 fL 81-99 [facility] Work Phone: Hematocrit Auto (Bld) [Volum e fraction]on 10-12-2022 Hematocrit (Bld) [Volume fraction] 40.8 % 37-47 [facility] Work Phone: Laboratory - Chemistry and C hemistry - challengeon 10-12-2022 ALP [Catalytic activity/Vol] 90 U/L 45-117 [facility] Work Phone: ALT [Catalytic activity/Vol] 29 U/L 13-56 [facility] Work Phone: CO2 [Moles/Vol] 29.0 mmol/L 21.0-32.0 [facility] Work Phone: Globulin (S) [Mass/Vol] 3.2 g/dL 2.2-4.2 [facility] Work Phone: Urea nitrogen/Creatini ne [Mass ratio] 25.6 mg/mg 10-20 [facility] Work Phone: Laboratory - Hematology and Cell countson 10-12-2022 Erythrocyte distribution width (RBC) [Entitic vol] 49.8 fL 35.1-43.9 [facility] Work Phone: Erythrocyte distribution width (RBC) [Ratio] 13.5 % 11.6-14.6 [facility] Work Phone: Immature granulocytes/100 WBC (Bld) 0.200 % 0.0-0.9 [facility] Work Phone: Comment on above: IG% - Immature Granu locytes (promyelocytes, myelocytes and metamyelocytes) > 1% indicates that a LEFT SHIFT is Present. MCH (RBC) [Entitic mass] 33.2 pg 27.0-32.0 [facility] Work Phone: Nucleated RBC/100 WBC (Bld) [Ratio] 0 % 0-5 [facility] Work Phone: [phone] MCHC Auto (RBC) [Mass/Vol]on 10-12-2022 MCHC (RBC) [Mass/Vol] 32.8 g/dL 32-36 [facility] Work Phone: [phone] Panel Informationon 10-12 Estimated GFR (MDRD) Amer 88 mL/min >60 [facility] Work Phone: [phone] Comment on above: GFR Calc Estimated GFR (MDRD) Non-Af Amer 72 mL/min >60 [facility] Work Phone: [phone] Comment on above: Non- GFR Calc Platelets bldon 10-12-2022 Platelets (Bld) [#/Vol] 253 10*3/uL 150-450 [facility] Work Phone: [phone] Serum or plasma albumin jai urement (mass/volume)on 10-12-2022 Albumin [Mass/Vol] 3.5 g/dL 3.2-5.0 [facility] Work Phone: [phone] Serum or plasma albumin/glob ulin mass ratioon 10-12-2022 Albumin/Globulin [Mass ratio] 1.1 {ratio} 0.9-2.4 [facility] Work Phone: [phone] Serum or plasma calcium jai urement (mass/volume)on 10-12-2022 Calcium [Mass/Vol] 8.9 mg/dL 8.5-10.1 [facility] Work Phone: [phone] Serum or plasma creatinine m easurement (mass/volume)on 10-12-2022 Creatinine [Mass/Vol] 0.82 mg/dL 0.55-1.02 [facility] Work Phone: Comment on above: The validity of the calculated GFR & GFRAA in patients over 70 years has not been determined. Clinical correlation is essential. Serum or plasma urea nitroge n measurement (mass/volume)on 10-12-2022 Urea nitrogen [Mass/Vol] 21 mg/dL 7-18 [facility] Work Phone: Thin prep Papanicolaou smear with manual screeningon 10-12-2022 Thin prep Papanicolaou smear with manual screening 21 U/L 15-37 [facility] Work Phone: Thin prep Papanicolaou smear with manual screening 2 5-15 [facility] Work Phone: Absolute lymphocyte counton 04-17-2022 Lymphocytes Auto (Unsp spec) [#/Vol] 1.12 10*3/uL 0.83-4.51 [facility] Work Phone: Basophil percentageon 2021 Basophils/100 WBC (Bld) 0.6 % 0-1 [facility] Work Phone: Bilirubin [Mass/Vol] 0.50 mg/dL 0.20-1.00 [facility] Work Phone: Comment on above: For patients on eltr ombopag therapy, use of Dimension [place] TBIL is not recommended. Chloride [Moles/Vol] 108 mmol/L 98-107 [facility] Work Phone: Eosinophils/100 WBC (Bld) 2.0 % 0-5 [facility] Work Phone: Glucose [Mass/Vol] 88 mg/dL 74-106 [facility] Work Phone: Neutrophils (Bld) [#/Vol] 3.3 10*3/uL 2.0-7.7 [facility] Work Phone: Neutrophils/100 WBC (Bld) 66.0 % 47-70 [facility] Work Phone: Potassium [Moles/Vol] 4.1 mmol/L 3.5-5.1 [facility] Work Phone: Protein [Mass/Vol] 6.6 g/dL 6.4-8.2 [facility] Work Phone: Sodium [Moles/Vol] 140 mmol/L 136-145 [facility] Work Phone: WBC (Bld) [#/Vol] 5.0 10*3/uL 4.4-11.0 [facility] Work Phone: Blood erythrocytes count (nu mber/volume)on 04-17-2022 RBC (Bld) [#/Vol] 3.91 10*6/uL 4.2-5.4 [facility] Work Phone: Blood hemoglobin measurement (mass/volume)on 04-17-2022 Hemoglobin (Bld) [Mass/Vol] 12.5 g/dL 12.0-15.0 [facility] [facility] Work Phone: Blood lymphocytes/100 leukoc yteson 04-17-2022 Lymphocytes/100 WBC (Bld) 22.3 % 19-41 [facility] Work Phone: Blood monocytes/100 leukocyt eson 04-17-2022 Monocytes/100 WBC (Bld) 8.7 % 0-10 [facility] Work Phone: Blood platelet mean volumeon 04-17-2022 Platelet mean volume (Bld) [Entitic vol] 9.9 fL 6.2-12.0 [facility] Work Phone: Determination of erythrocyte mean corpuscular volume (MCV)on 04-17-2022 MCV (RBC) [Entitic vol] 99.0 fL 81-99 [facility] Work Phone: Hematocrit Auto (Bld) [Volum e fraction]on 04-17-2022 Hematocrit (Bld) [Volume fraction] 38.7 % 37-47 [facility] Work Phone: Laboratory - Chemistry and C hemistry - challengeon 04-17-2022 ALP [Catalytic activity/Vol] 100 U/L 45-117 [facility] Work Phone: [phone] ALT [Catalytic activity/Vol] 18 U/L 13-56 [facility] Work Phone: [phone] CO2 [Moles/Vol] 29.0 mmol/L 21.0-32.0 [facility] Work Phone: [phone] Globulin (S) [Mass/Vol] 3.4 g/dL 2.2-4.2 [facility] Work Phone: [phone] Urea nitrogen/Creatini ne [Mass ratio] 22.6 mg/mg 10-20 [facility] Work Phone: [phone] Laboratory - Hematology and Cell countson 04-17-2022 Erythrocyte distribution width (RBC) [Entitic vol] 48.8 fL 35.1-43.9 [facility] Work Phone: [phone] Erythrocyte distribution width (RBC) [Ratio] 13.5 % 11.6-14.6 [facility] Work Phone: [phone] Immature granulocytes/100 WBC (Bld) 0.400 % 0.0-0.9 [facility] Work Phone: [phone] Comment on above: IG% - Immature Granu locytes (promyelocytes, myelocytes and metamyelocytes) > 1% indicates that a LEFT SHIFT is Present. MCH (RBC) [Entitic mass] 32.0 pg 27.0-32.0 [facility] Work Phone: [phone] Nucleated RBC/100 WBC (Bld) [Ratio] 0 % 0-5 [facility] Work Phone: [phone] MCHC Auto (RBC) [Mass/Vol]on 04-17-2022 MCHC (RBC) [Mass/Vol] 32.3 g/dL 32-36 [facility] Work Phone: [phone] Panel Informationon 04-17 Estimated GFR (MDRD) Amer 104 mL/min >60 [facility] Work Phone: [phone] Comment on above: GFR Calc Estimated GFR (MDRD) Non-Af Amer 86 mL/min >60 [facility] Work Phone: Comment on above: Non- GFR Calc Thyroid Stimulating Hormone (TSH) 0.23 uIU/mL 0.358-3.74 [facility] Work Phone: [phone] Platelets bldon 04-17-2022 Platelets (Bld) [#/Vol] 237 10*3/uL 150-450 [facility] Work Phone: [phone] Serum or plasma albumin jai urement (mass/volume)on 04-17-2022 Albumin [Mass/Vol] 3.2 g/dL 3.2-5.0 [facility] Work Phone: [phone] Serum or plasma albumin/glob ulin mass ratioon 04-17-2022 Albumin/Globulin [Mass ratio] 0.9 {ratio} 0.9-2.4 [facility] Work Phone: [phone] Serum or plasma calcium jai urement (mass/volume)on 04-17-2022 Calcium [Mass/Vol] 8.9 mg/dL 8.5-10.1 [facility] Work Phone: [phone] Serum or plasma creatinine m easurement (mass/volume)on 04-17-2022 Creatinine [Mass/Vol] 0.71 mg/dL 0.55-1.02 [facility] Work Phone: [phone] Comment on above: The validity of the calculated GFR & GFRAA in patients over 70 years has not been determined. Clinical correlation is essential. Serum or plasma urea nitroge n measurement (mass/volume)on 04-17-2022 Urea nitrogen [Mass/Vol] 16 mg/dL 7-18 [facility] Work Phone: [phone] Thin prep Papanicolaou smear with manual screeningon 04-17-2022 Thin prep Papanicolaou smear with manual screening 18 U/L 15-37 [facility] Work Phone: [phone] Thin prep Papanicolaou smear with manual screening 3 5-15 [facility] Work Phone: [phone] Absolute lymphocyte counton 01-16-2022 Lymphocytes Auto (Unsp spec) [#/Vol] 1.24 10*3/uL 0.83-4.51 [facility] Work Phone: Basophil percentageon 2021 Basophils/100 WBC (Bld) 1.0 % 0-1 [facility] Work Phone: Bilirubin [Mass/Vol] 0.40 mg/dL 0.20-1.00 [facility] Work Phone: Comment on above: For patients on eltr ombopag therapy, use of Dimension [place] TBIL is not recommended. Chloride [Moles/Vol] 107 mmol/L 98-107 [facility] Work Phone: Eosinophils/100 WBC (Bld) 3.5 % 0-5 [facility] Work Phone: [phone] Glucose [Mass/Vol] 89 mg/dL 74-106 [facility] Work Phone: Neutrophils (Bld) [#/Vol] 3.6 10*3/uL 2.0-7.7 [facility] Work Phone: Neutrophils/100 WBC (Bld) 63.3 % 47-70 [facility] Work Phone: Potassium [Moles/Vol] 4.3 mmol/L 3.5-5.1 [facility] Work Phone: Protein [Mass/Vol] 6.9 g/dL 6.4-8.2 [facility] Work Phone: Sodium [Moles/Vol] 139 mmol/L 136-145 [facility] Work Phone: WBC (Bld) [#/Vol] 5.7 10*3/uL 4.4-11.0 [facility] Work Phone: Blood erythrocytes count (nu mber/volume)on 01-16-2022 RBC (Bld) [#/Vol] 3.97 10*6/uL 4.2-5.4 [facility] Work Phone: Blood hemoglobin measurement (mass/volume)on 01-16-2022 Hemoglobin (Bld) [Mass/Vol] 12.8 g/dL 12.0-15.0 [facility] Work Phone: Blood lymphocytes/100 leukoc yteson 01-16-2022 Lymphocytes/100 WBC (Bld) 21.7 % 19-41 [facility] Work Phone: Blood monocytes/100 leukocyt eson 01-16-2022 Monocytes/100 WBC (Bld) 10.3 % 0-10 [facility] Work Phone: Blood platelet mean volumeon 01-16-2022 Platelet mean volume (Bld) [Entitic vol] 9.9 fL 6.2-12.0 [facility] Work Phone: Determination of erythrocyte mean corpuscular volume (MCV)on 01-16-2022 MCV (RBC) [Entitic vol] 98.7 fL 81-99 [facility] Work Phone: Hematocrit Auto (Bld) [Volum e fraction]on 01-16-2022 Hematocrit (Bld) [Volume fraction] 39.2 % 37-47 [facility] Work Phone: Laboratory - Chemistry and C hemistry - challengeon 01-16-2022 ALP [Catalytic activity/Vol] 103 U/L 45-117 [facility] Work Phone: ALT [Catalytic activity/Vol] 18 U/L 13-56 [facility] Work Phone: CO2 [Moles/Vol] 31.0 mmol/L 21.0-32.0 [facility] Work Phone: Globulin (S) [Mass/Vol] 3.7 g/dL 2.2-4.2 [facility] Work Phone: Urea nitrogen/Creatini ne [Mass ratio] 21.5 mg/mg 10-20 [facility] Work Phone: Laboratory - Hematology and Cell countson 01-16-2022 Erythrocyte distribution width (RBC) [Entitic vol] 50.9 fL 35.1-43.9 [facility] Work Phone: Erythrocyte distribution width (RBC) [Ratio] 14.1 % 11.6-14.6 [facility] Work Phone: Immature granulocytes/100 WBC (Bld) 0.200 % 0.0-0.9 [facility] Work Phone: Comment on above: IG% - Immature Granu locytes (promyelocytes, myelocytes and metamyelocytes) > 1% indicates that a LEFT SHIFT is Present. MCH (RBC) [Entitic mass] 32.2 pg 27.0-32.0 [facility] Work Phone: [phone] Nucleated RBC/100 WBC (Bld) [Ratio] 0 % 0-5 [facility] Work Phone: [phone] MCHC Auto (RBC) [Mass/Vol]on 01-16-2022 MCHC (RBC) [Mass/Vol] 32.7 g/dL 32-36 [facility] Work Phone: No Panel Informationon 01-16 Estimated GFR (MDRD) Amer 91 mL/min >60 [facility] Work Phone: [phone] Comment on above: GFR Calc Estimated GFR (MDRD) Non-Af Amer 76 mL/min >60 [facility] Work Phone: Comment on above: Non- GFR Calc Thyroid Stimulating Hormone (TSH) 4.40 uIU/mL 0.358-3.74 [facility] Work Phone: Platelets bldon 01-16-2022 Platelets (Bld) [#/Vol] 235 10*3/uL 150-450 [facility] Work Phone: [phone] Serum or plasma albumin jai urement (mass/volume)on 01-16-2022 Albumin [Mass/Vol] 3.2 g/dL 3.2-5.0 [facility] Work Phone: [phone] Serum or plasma albumin/glob ulin mass ratioon 01-16-2022 Albumin/Globulin [Mass ratio] 0.9 {ratio} 0.9-2.4 [facility] Work Phone: [phone] Serum or plasma calcium jai urement (mass/volume)on 01-16-2022 Calcium [Mass/Vol] 9.0 mg/dL 8.5-10.1 [facility] Work Phone: Serum or plasma creatinine m easurement (mass/volume)on 01-16-2022 Creatinine [Mass/Vol] 0.79 mg/dL 0.55-1.02 [facility] Work Phone: Comment on above: The validity of the calculated GFR & GFRAA in patients over 70 years has not been determined. Clinical correlation is essential. Serum or plasma urea nitroge n measurement (mass/volume)on 01-16-2022 Urea nitrogen [Mass/Vol] 17 mg/dL 7-18 [facility] Work Phone: Thin prep Papanicolaou smear with manual screeningon 01-16-2022 Thin prep Papanicolaou smear with manual screening 19 U/L 15-37 [facility] Work Phone: Thin prep Papanicolaou smear with manual screening 1 5-15 [facility] Work Phone: Absolute lymphocyte counton 10-06-2021 Lymphocytes Auto (Unsp spec) [#/Vol] 1.50 10*3/uL 0.83-4.51 [facility] Work Phone: Basophil percentageon 2020 Bilirubin [Mass/Vol] 0.50 mg/dL 0.20-1.00 [facility] Work Phone: Comment on above: For patients on eltr ombopag therapy, use of Dimension [place] TBIL is not recommended. Chloride [Moles/Vol] 108 mmol/L 98-107 [facility] Work Phone: Eosinophils/100 WBC (Bld) 1.6 % 0-5 [facility] Work Phone: Glucose [Mass/Vol] 78 mg/dL 74-106 [facility] Work Phone: Comment on above: Please note revised GLUCOSE reference range effective 2017. Neutrophils (Bld) [#/Vol] 4.1 10*3/uL 2.0-7.7 [facility] Work Phone: Potassium [Moles/Vol] 4.1 mmol/L 3.5-5.1 [facility] Work Phone: [phone] Protein [Mass/Vol] 6.9 g/dL 6.4-8.2 [facility] Work Phone: [phone] Sodium [Moles/Vol] 141 mmol/L 136-145 [facility] Work Phone: [phone] WBC (Bld) [#/Vol] 6.2 10*3/uL 4.4-11.0 [facility] Work Phone: [phone] Blood erythrocytes count (nu mber/volume)on 10-06-2021 RBC (Bld) [#/Vol] 4.12 10*6/uL 4.2-5.4 [facility] Work Phone: [phone] Blood hemoglobin measurement (mass/volume)on 10-06-2021 Hemoglobin (Bld) [Mass/Vol] 13.1 g/dL 12.0-15.0 [facility] Work Phone: [phone] Blood lymphocytes/100 leukoc yteson 10-06-2021 Lymphocytes/100 WBC (Bld) 24.3 % 19-41 [facility] Work Phone: [phone] Blood monocytes/100 leukocyt eson 10-06-2021 Monocytes/100 WBC (Bld) 7.1 % 0-10 [facility] Work Phone: [phone] Blood platelet mean volumeon 10-06-2021 Platelet mean volume (Bld) [Entitic vol] 10.8 fL 6.2-12.0 [facility] Work Phone: [phone] Determination of erythrocyte mean corpuscular volume (MCV)on 10-06-2021 MCV (RBC) [Entitic vol] 97.6 fL 81-99 [facility] Work Phone: [phone] Hematocrit Auto (Bld) [Volum e fraction]on 10-06-2021 Hematocrit (Bld) [Volume fraction] 40.2 % 37-47 [facility] Work Phone: [phone] Laboratory - Chemistry and C hemistry - challengeon 10-06-2021 ALP [Catalytic activity/Vol] 88 U/L 45-117 [facility] Work Phone: ALT [Catalytic activity/Vol] 21 U/L 13-56 [facility] Work Phone: CO2 [Moles/Vol] 30.0 mmol/L 21.0-32.0 [facility] Work Phone: Globulin (S) [Mass/Vol] 3.8 g/dL 2.2-4.2 [facility] Work Phone: Urea nitrogen/Creatini ne [Mass ratio] 15.9 mg/mg 10-20 [facility] Work Phone: Laboratory - Hematology and Cell countson 10-06-2021 Basophils/100 WBC (Unsp spec) 1.0 % 0-1 [facility] Work Phone: Erythrocyte distribution width (RBC) [Entitic vol] 48.2 fL 35.1-43.9 [facility] Work Phone: Erythrocyte distribution width (RBC) [Ratio] 13.6 % 11.6-14.6 [facility] Work Phone: [phone] Immature granulocytes/100 WBC (Bld) 0.200 % 0.0-0.9 [facility] Work Phone: Comment on above: IG% - Immature Granu locytes (promyelocytes, myelocytes and metamyelocytes) > 1% indicates that a LEFT SHIFT is Present. MCH (RBC) [Entitic mass] 31.8 pg 27.0-32.0 [facility] Work Phone: Neutrophils/100 WBC (Bld) 65.8 % 47-70 [facility] Work Phone: Nucleated RBC/100 WBC (Bld) [Ratio] 0 % 0-5 [facility] Work Phone: MCHC Auto (RBC) [Mass/Vol]on 10-06-2021 MCHC (RBC) [Mass/Vol] 32.6 g/dL 32-36 [facility] Work Phone: No Panel Informationon 10-06 Estimated GFR (MDRD) Amer 88 mL/min >60 [facility] Work Phone: Comment on above: GFR Calc Estimated GFR (MDRD) Non-Af Amer 73 mL/min >60 [facility] Work Phone: Comment on above: Non- GFR Calc Platelets bldon 10-06-2021 Platelets (Bld) [#/Vol] 259 10*3/uL 150-450 [facility] Work Phone: Serum or plasma albumin jai urement (mass/volume)on 10-06-2021 Albumin [Mass/Vol] 3.1 g/dL 3.2-5.0 [facility] Work Phone: Serum or plasma albumin/glob ulin mass ratioon 10-06-2021 Albumin/Globulin [Mass ratio] 0.8 {ratio} 0.9-2.4 [facility] Work Phone: Serum or plasma calcium jai urement (mass/volume)on 10-06-2021 Calcium [Mass/Vol] 8.9 mg/dL 8.5-10.1 [facility] Work Phone: Serum or plasma creatinine m easurement (mass/volume)on 10-06-2021 Creatinine [Mass/Vol] 0.82 mg/dL 0.55-1.02 [facility] Work Phone: Comment on above: The validity of the calculated GFR & GFRAA in patients over 70 years has not been determined. Clinical correlation is essential. Serum or plasma urea nitroge n measurement (mass/volume)on 10-06-2021 Urea nitrogen [Mass/Vol] 13 mg/dL 7-18 [facility] Work Phone: Thin prep Papanicolaou smear with manual screeningon 10-06-2021 Thin prep Papanicolaou smear with manual screening 17 U/L 15-37 [facility] Work Phone: [phone] Thin prep Papanicolaou smear with manual screening 3 5-15 [facility] Work Phone: No Panel Information [facility] Vital Signs Date Time Vital Sign Value Performing Clinician Chery nielson 09-07-2024 10:19-0400 Body mass index (BMI) [Ratio] 37.69 kg/m2 Rocío Spencer COMPLIANCE SPEC.[employer] Work Phone: [facility] 09-07-2024 10:19-0400 Body weight 87.54 kg Rocío Spencer COMPLIANCE SPEC.[employer] Work Phone: [facility] 09-07-2024 10:19-0400 Diastolic blood pressure 68 mm[Hg] Rocío Haliliana COMPLIANCE SPEC.[employer] Work Phone: [facility] 09-07-2024 10:19-0400 Systolic blood pressure 120 mm[Hg] Rocío Haliliana COMPLIANCE SPEC.[employer] Work Phone: [facility] 08-05-2022 14:46-0400 Body weight 89.81 kg Sandhya Gunn MD Work Phone: [facility] 08-05-2022 14:46-0400 Diastolic blood pressure 82 mm[Hg] Sandhya Gunn MD Work Phone: [facility] 08-05-2022 14:46-0400 Systolic blood pressure 132 mm[Hg] Sandhya Gunn MD Work Phone: [facility] Encounters Encounter Date Encounter Type Care Provider Facility Start: 09-20-2025 End: 09-20-2025 ambulatory JANN GODDARD Facility:[facility] Start: 09-19-2025 End: 09-19-2025 ambulatory RIMA CORRAL Facility:[facility] Start: 09-07-2025 End: 09-07-2025 ambulatory ROCÍO SPENCER Facility:[facility] Start: 09-07-2025 End: 09-07-2025 ambulatory ROCÍO SPENCER Facility:[facility] Start: 07-05-2025 End: 07-05-2025 Patient encounter procedure Jann Goddard MD Work Phone: Ophthalmology Comment on above: 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); 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 macular degeneration of left eye with inactive scar (HCC) Start: 07-05-2025 End: 07-05-2025 ambulatory JANN GODDARD Facility:[facility] Start: 06-26-2025 End: 06-26-2025 ambulatory KATHYCATHY KEANEKI Facility:[facility] Start: 04-03-2025 End: 04-03-2025 [facility]ulatory [facility] Facility[facility] Start: 03-29-2025 End: 03-29-2025 ambulatory JANN THERESETRY Facility:[facility] Start: 01-18-2025 End: 01-18-2025 ambulatory JANN THERESETRY Facility:[facility] Start: 01-18-2025 End: 01-18-2025 Patient encounter procedure Jann Goddard MD Work Phone: Ophthalmology Comment on above: 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); 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 macular degeneration of left eye with inactive scar (HCC) Start: 01-09-2025 End: 01-09-2025 ambulatory SHADIA CORRAL COMPLIANCE SPEC~[id number] Facility:[facility] Start: 11-16-2024 End: 11-16-2024 ambulatory JANN GODDARD Facility:[facility] Start: 11-16-2024 End: 11-16-2024 Patient encounter procedure Jann Goddard MD Work Phone: Ophthalmology Comment on above: 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); 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 macular degeneration of left eye with inactive scar (HCC) Start: 10-09-2024 End: 10-09-2024 ambulatory KATHY DEX Facility:[facility] Start: 09-14-2024 End: 09-14-2024 Unlisted evaluation and management service Awa Patrick MD, PhD Work Phone: Ophthalmology Comment on above: 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); 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 macular degeneration of left eye with inactive scar (HCC) Start: 09-07-2024 End: 09-07-2024 Patient encounter procedure Rocío Spencer APRN.[employer] Work Phone: OB/Gynecology Comment on above: Cyst of left ovary ( Primary Dx); Encounter for screening mammogram for breast cancer; 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 Start: 09-04-2024 End: 09-04-2024 Orders Only Sandhya Gunn MD Work Phone: OB/Gynecology Comment on above: Cyst of left ovary ( Primary Dx) Start: 09-01-2024 End: 09-01-2024 ambulatory [place] [employer] Work Phone: OB/Gynecology Start: 09-01-2024 End: 09-01-2024 Patient encounter procedure [place] [employer] Work Phone: OB/Gynecology Start: 09-01-2024 End: 09-01-2024 Subsequent hospital visit by physician [facility] Comment on above: Encounter for screen ing mammogram for malignant neoplasm of breast [Z12.31] Start: 08-29-2024 End: 08-30-2024 Telephone encounter Rocío Spencer APRN.[employer] Work Phone: OB/Gynecology Comment on above: Orders Start: 07-20-2024 End: 07-20-2024 Patient encounter procedure Jann Goddard MD Work Phone: Ophthalmology Comment on above: 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); 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 macular degeneration of left eye with inactive scar (HCC) Start: 07-11-2024 End: 07-11-2024 ambulatory Td Garcia NP Facility:[facility] Start: 05-25-2024 End: 05-25-2024 Unlisted evaluation and management service Awa Patrick MD, PhD Work Phone: Ophthalmology Comment on above: 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); 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 macular degeneration of left eye with inactive scar (HCC); 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) Start: 05-24-2024 Telephone encounter Sandhya Gunn MD Work Phone: OB/Gynecology Comment on above: Orders (Pelvic US WH I); Lab Orders (CA 125 BLD) Start: 03-23-2024 End: 03-23-2024 Unlisted evaluation and management service Awa Patrick MD, PhD Work Phone: Ophthalmology Comment on above: 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); 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 macular degeneration of left eye with inactive scar (HCC) Start: 01-27-2024 End: 01-27-2024 Office outpatient visit 15 minutes Awa Patrick MD, PhD Work Phone: Ophthalmology Comment on above: 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 Start: 08-11-2023 Letter encounter Mammography Coordinator [facility] Department Start: 08-11-2023 End: 08-11-2023 Subsequent hospital visit by physician [facility] Comment on above: Encounter for screen ing mammogram for malignant neoplasm of breast [Z12.31] Start: 07-29-2023 End: 07-29-2023 Patient encounter procedure Awa Patrick MD, PhD Work Phone: Ophthalmology Comment on above: 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) Start: 06-10-2023 Telephone encounter Sandhya Gunn MD Work Phone: OB/Gynecology Comment on above: Results Start: 05-27-2023 End: 05-27-2023 Patient encounter procedure Awa Patrick MD, PhD Work Phone: Ophthalmology Comment on above: 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) Start: 05-05-2023 Telephone encounter Sandhya Gunn MD Work Phone: OB/Gynecology Comment on above: Patient Question Start: 01-21-2023 End: 01-21-2023 Patient encounter procedure Awa Patrick MD, PhD Work Phone: Ophthalmology Comment on above: 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) Start: 12-10-2022 End: 12-10-2022 Patient encounter procedure Awa Patrick MD, PhD Work Phone: Ophthalmology Comment on above: 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) Start: 10-22-2022 End: 10-22-2022 Patient encounter procedure Awa Patrick MD, PhD Work Phone: Ophthalmology Comment on above: 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) Start: 10-12-2022 End: 10-12-2022 ambulatory [facility] Work Phone: Start: 10-12-2022 End: 10-12-2022 Patient encounter procedure [facility] Start: 09-03-2022 End: 09-03-2022 Patient encounter procedure Awa Patrick MD, PhD Work Phone: Ophthalmology Comment on above: 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) (Primary Dx) Start: 08-25-2022 Telephone encounter Sandhya Gunn MD Work Phone: OB/Gynecology Comment on above: Results Start: 08-17-2022 End: 08-17-2022 Patient encounter procedure Jessica Lan MD Work Phone: OB/Gynecology Comment on above: Cyst of ovary, unspe cified laterality (Primary Dx) Start: 08-05-2022 End: 08-05-2022 Patient encounter procedure Sandhya Gunn MD Work Phone: OB/Gynecology Comment on above: Encounter for gyneco logical examination (general) (routine) without abnormal findings (Primary Dx); Encounter for screening mammogram for malignant neoplasm of breast; Ovarian cyst, left; Left lower quadrant abdominal swelling, mass and lump Start: 08-05-2022 End: 08-05-2022 Patient encounter status Sandhya Gunn MD Work Phone: OB/Gynecology Start: 2022 End: 2022 Patient encounter procedure Awa Patrick MD, PhD Work Phone: Ophthalmology Comment on above: 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) Start: 04-23-2022 End: 04-23-2022 Patient encounter procedure Awa Patrick MD, PhD Work Phone: Ophthalmology Comment on above: 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) Start: 04-17-2022 End: 04-17-2022 [facility]: 02-26-2022 End: 02-26-2022 Patient encounter procedure Awa Patrick MD, PhD Work Phone: Ophthalmology Comment on above: 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) Start: 01-16-2022 End: 01-16-2022 [facility] Start: 10-06-2021 [facility] [place] Procedures Date Procedure Procedure Detail Performing Clinician Start: 07-05-2025 Computerized ophthalmic imaging retina Jann Goddard MD Work Phone: Start: 07-05-2025 Intravitreal njx pharmacologic agt spx Jann Goddard MD Work Phone: Start: 01-18-2025 Intravitreal njx pharmacologic agt spx Jann Goddard MD Work Phone: Start: 01-18-2025 Computerized ophthalmic imaging retina Jann Goddard MD Work Phone: Start: 11-16-2024 Intravitreal njx pharmacologic agt spx Jann Goddard MD Work Phone: Start: 11-16-2024 Computerized ophthalmic imaging retina Awa Patrick MD, PhD Work Phone: Start: 09-14-2024 Intravitreal njx pharmacologic agt spx Awa Patrick MD, PhD Work Phone: Start: 09-14-2024 Computerized ophthalmic imaging retina Jann Goddard MD Work Phone: Start: 09-01-2024 [facility] nonobstetric real-time image complete Sandhya Gunn MD Work Phone: Start: 07-20-2024 Computerized ophthalmic imaging retina Awa Patrick MD, PhD Work Phone: Start: 07-20-2024 Intravitreal njx pharmacologic agt spx Jann Goddard MD Work Phone: Start: 05-25-2024 Intravitreal njx pharmacologic agt spx Awa Patrick MD, PhD Work Phone: Start: 05-25-2024 Computerized ophthalmic imaging retina Awa Patrick MD, PhD Work Phone: Start: 03-23-2024 Intravitreal njx pharmacologic agt spx Awa Patrick MD, PhD Work Phone: Start: 03-23-2024 Computerized ophthalmic imaging retina Awa Patrick MD, PhD Work Phone: Start: 01-27-2024 Intravitreal njx pharmacologic agt spx Awa Patrick MD, PhD Work Phone: Start: 01-27-2024 Computerized ophthalmic imaging retina Awa Patrick MD, PhD Work Phone: Start: 09-23-2023 Intravitreal njx pharmacologic agt spx Awa Patrick MD, PhD Work Phone: Start: 09-23-2023 Computerized ophthalmic imaging retina Awa Patrick MD, PhD Work Phone: Start: 08-11-2023 Screening digital breast tomosynthesis khris Gunn MD Work Phone: Start: 07-29-2023 Intravitreal njx pharmacologic agt spx Awa Patrick MD, PhD Work Phone: Start: 07-29-2023 Computerized ophthalmic imaging retina Awa Patrick MD, PhD Work Phone: Start: 05-27-2023 Intravitreal njx pharmacologic agt spx Awa Patrick MD, PhD Work Phone: Start: 05-27-2023 Computerized ophthalmic imaging retina Awa Patrick MD, PhD Work Phone: Start: 01-21-2023 Intravitreal njx pharmacologic agt spx Awa Patrick MD, PhD Work Phone: Start: 01-21-2023 Computerized ophthalmic imaging retina Awa Patrick MD, PhD Work Phone: Start: 12-10-2022 Intravitreal njx pharmacologic agt spx Awa Patrick MD, PhD Work Phone: Start: 12-10-2022 Computerized ophthalmic imaging retina Awa Patrick MD, PhD Work Phone: Start: 10-22-2022 Intravitreal njx pharmacologic agt spx Awa Patrick MD, PhD Work Phone: Start: 10-22-2022 Computerized ophthalmic imaging retina Awa Patrick MD, PhD Work Phone: Start: 09-03-2022 Computerized ophthalmic imaging retina Awa Patrick MD, PhD Work Phone: Start: 09-03-2022 Intravitreal njx pharmacologic agt spx Awa Patrick MD, PhD Work Phone: Start: 2022 Intravitreal njx pharmacologic agt spx Awa Patrick MD, PhD Work Phone: Start: 2022 Computerized ophthalmic imaging retina Awa Patrick MD, PhD Work Phone: Start: 07-10-2022 Mammography Mammography Coordinator Start: 06-11-2022 Intravitreal njx pharmacologic agt spx Awa Patrick MD, PhD Work Phone: Start: 06-11-2022 Computerized ophthalmic imaging retina Awa Patrick MD, PhD Work Phone: Start: 04-23-2022 Intravitreal njx pharmacologic agt spx Awa Patrick MD, PhD Work Phone: Start: 04-23-2022 Computerized ophthalmic imaging retina Awa Patrick MD, PhD Work Phone: Start: 02-26-2022 Intravitreal njx pharmacologic agt spx Awa Patrick MD, PhD Work Phone: Start: 02-26-2022 Computerized ophthalmic imaging retina Awa Patrick MD, PhD Work Phone: Start: 07-09-2021 Mammography Awa Patrick MD, PhD Work Phone: Start: 04-20-2017 [facility] Awa Patrick MD, PhD Work Phone: Start: 11-28-2009 End: 02-12-2014 H/O: artificial joint Knee joint replacement Awa Patrick MD, P hD Work Phone: Start: 09-28-2002 Lipid 1996 panel - Serum or Plasma Awa Patrick MD, PhD Work Phone: Plan of Treatment Date Care Activity Detail Author Start: 07-20-2026 End: 12-27-2026 OCT MACULA CIRRUS OU (BOTH EYES) OCT MACULA CIRRUS OU (BOTH EYES) [facility] Imaging Routine 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 (HCC) Expected: 07/20/2026, Expires: 12/27/2026 [facility] Work Phone: Comment on above: Expected: 07/20/2026, Expires: Start: 02-02-2026 End: 07-12-2026 OCT MACULA CIRRUS OU (BOTH EYES) OCT MACULA CIRRUS OU (BOTH EYES) [facility] Imaging Routine 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 (HCC) Expected: 02/02/2026, Expires: 07/12/2026 [facility] Work Phone: Comment on above: Expected: 02/02/2026, Expires: Start: 12-01-2025 End: 05-10-2026 OCT MACULA CIRRUS OU (BOTH EYES) OCT MACULA CIRRUS OU (BOTH EYES) [facility] Imaging Routine 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 (HCC) Expected: 12/01/2025, Expires: 05/10/2026 [facility] Work Phone: Comment on above: Expected: 12/01/2025, Expires: Start: 09-29-2025 End: 03-08-2026 OCT MACULA CIRRUS OU (BOTH EYES) OCT MACULA CIRRUS OU (BOTH EYES) [facility] Imaging Routine 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 (HCC) Expected: 09/29/2025, Expires: 03/08/2026 [facility] Work Phone: Comment on above: Expected: 09/29/2025, Expires: Start: 09-20-2025 End: 09-20-2025 Patient encounter procedure 09/20/2025 9:30 AM EST Office Visit [facility] Ophthalmology [address] [place] [address] Jann Goddard MD [address] [place] [address] *10 W, DTI EYLEA OD Ophthalmology Comment on above: *10 W, DTI EYLEA OD Start: 09-07-2025 End: 12-07-2025 Cancer Ag 125 [Units/volume] in Serum or Plasma CA 125 Lab Routine 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 Expected: 09/07/2025, Expires: 12/07/2025 [facility] Comment on above: Expected: 09/07/2025, Expires: Start: 09-07-2025 End: 09-07-2025 US Pelvis PELVIC US [facility] Anc Imaging Routine Cyst of left ovary Expected: 09/07/2025, Expires: 09/07/2025 [facility] Comment on above: Expected: 09/07/2025, Expires: Start: 09-07-2025 End: 09-07-2025 Patient encounter procedure 09/07/2025 11:10 AM EDT Appointment Mammogram [address] [place], [place] [id number] emanuel screening Mammogram Comment on above: emanuel screening Start: 09-07-2025 End: 09-07-2025 ambulatory OB/Gynecology Comment on above: Cyst of left ovary [N83.202] CA125 Start: 08-04-2025 End: 01-11-2026 OCT MACULA CIRRUS OU (BOTH EYES) OCT MACULA CIRRUS OU (BOTH EYES) [facility] Imaging Routine 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 (HCC) Expected: 08/04/2025, Expires: 01/11/2026 [facility] Work Phone: Comment on above: Expected: 08/04/2025, Expires: Start: 07-09-2025 Influenza vaccination [facility] Start: 06-09-2025 End: 11-16-2025 OCT MACULA CIRRUS OU (BOTH EYES) OCT MACULA CIRRUS OU (BOTH EYES) [facility] Imaging Routine 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 (HCC) 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) Expected: 06/09/2025, Expires: 11/16/2025 [facility] Work Phone: Comment on above: Expected: 06/09/2025, Expires: Start: 04-07-2025 End: 09-14-2025 OCT MACULA CIRRUS OU (BOTH EYES) OCT MACULA CIRRUS OU (BOTH EYES) [facility] Imaging Routine 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 (HCC) Expected: 04/07/2025, Expires: 09/14/2025 [facility] Work Phone: Comment on above: Expected: 04/07/2025, Expires: Start: 03-29-2025 End: 03-29-2025 Patient encounter procedure 03/29/2025 9:45 AM EDT Office Visit [facility] Ophthalmology [address] [place] [id number] Jann Goddard MD [address] [place] [address] *7-9 W DTI EYLEA OD Ophthalmology Comment on above: *7-9 W DTI EYLEA OD Start: 02-10-2025 End: 07-20-2025 OCT MACULA CIRRUS OU (BOTH EYES) OCT MACULA CIRRUS OU (BOTH EYES) [facility] Imaging Routine 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 (HCC) Expected: 02/10/2025, Expires: 07/20/2025 [facility] Work Phone: Comment on above: Expected: 02/10/2025, Expires: Start: 01-18-2025 End: 01-18-2025 Patient encounter procedure 01/18/2025 10:45 AM EDT Office Visit [facility] Ophthalmology [address] [place] [id number] Jann Goddard MD [address] [place] [address] DFE/OCT Ophthalmology Comment on above: DFE/OCT Start: 11-16-2024 End: 11-16-2024 Patient encounter procedure 11/16/2024 10:30 AM EST Office Visit [facility] Ophthalmology [address] [place] [address] Jann Goddard MD [address] [place] [address] 9 weeks (around 11/16/2024) for with ANABEL Gupta OD/ OCT Ophthalmology Comment on above: 9 weeks (around 11/16/2024) for with ANABEL Gibson OD/ OCT Start: 11-08-2024 Advance Directive Discussion Advance Directive Discussion [facility] Start: 10-07-2024 End: 03-16-2025 OCT MACULA CIRRUS OU (BOTH EYES) OCT MACULA CIRRUS OU (BOTH EYES) [facility] Imaging Routine 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 Patrick *DTI EYLEA OD next v isit with Dr. 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 [place], [place] [address] Annual + review mammo, pelvic US, lab results OB/Gynecology Comment on above: Annual + review mammo, pelvic US, lab re sults Start: 09-04-2024 End: 09-04-2025 US Pelvis PELVIC US [facility] Anc Imaging Routine Cyst of left ovary Expected: 09/04/2024, Expires: 09/04/2025 [facility] Work Phone: Comment on above: Expected: 09/04/2024, Expires: Start: 09-01-2024 End: 12-01-2024 Cancer Ag 125 [Units/volume] in Serum or Plasma CA 125 Lab Routine Cyst of left ovary Left lower quadrant abdominal swelling, mass and lump Expected: 09/01/2024 (Approximate), Expires: 12/01/2024 [facility] Work Phone: Comment on above: Expected: 09/01/2024 (Approximate), Expi res: 12/01/2024 Start: 09-01-2024 End: 09-01-2024 Patient encounter procedure 09/01/2024 11:30 AM EDT Appointment Mammogram [address] [place] [address] screening mammogram Mammogram Comment on above: screening mammogram Start: 09-01-2024 End: 09-01-2024 ambulatory 09/01/2024 10:00 AM EDT Procedure OB/Gynecology [address] [place] [address] 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 [address] Annual + review mammo, pelvic US, lab results OB/Gynecology Comment on above: Annual + review mammo, pelvic US, lab re sults Start: 08-17-2024 End: 08-17-2024 ambulatory 08/17/2024 11:15 AM EDT Results Only [place] [facility] [address] [place] [address] CA 125 BLD [place] [facility] Comment on above: CA 125 BLD Start: 08-17-2024 End: 08-17-2024 Patient encounter procedure Mammogram Comment on above: screen w EMANUEL Cyst of left ovary [ N83.202] (Order requested, previous orders will 08/11/24) Start: 08-14-2024 End: 08-14-2024 ambulatory 08/14/2024 11:15 AM EDT Results Only [place] [facility] [address] [place] [address] CA 125 BLD [place] [facility] Comment on above: CA 125 BLD Start: 08-14-2024 End: 08-14-2024 Patient encounter procedure Mammogram Comment on above: screen w EMANUEL Cyst of left ovary [ N83.202] (Order requested, previous orders will 08/11/24) Start: 08-12-2024 End: 01-19-2025 OCT MACULA CIRRUS OU (BOTH EYES) OCT MACULA CIRRUS OU (BOTH EYES) [facility] Imaging Routine 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 eylea Ophthalmology Comment on above: DFE/ OCT both eyes ? 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) Expected: 06/10/2024, Expires: 11/17/2024 [facility] Work Phone: Comment on above: Expected: 06/10/2024, Expires: 5 Start: 05-25-2024 End: 05-25-2024 Patient encounter procedure Ophthalmology Comment on above: STI eylea OD/ OCT *STI eylea OD/ OCT Start: 05-24-2024 End: 08-23-2024 Cancer Ag 125 [Units/volume] in Serum or Plasma CA 125 Lab Routine Cyst of left ovary Left lower quadrant abdominal swelling, mass and lump Expected: 05/24/2024, Expires: 08/23/2024 [facility] Comment on above: Expected: 05/24/2024, Expires: 4 Start: 05-24-2024 End: 05-24-2025 US Pelvis PELVIC US [facility] Anc Imaging Routine Cyst of left ovary Expected: 05/24/2024, Expires: 05/24/2025 [facility] Work Phone: Comment on above: Expected: 05/24/2024, Expires: 5 Start: 02-05-2024 End: 07-14-2024 OCT MACULA CIRRUS OU (BOTH EYES) OCT MACULA CIRRUS OU (BOTH EYES) [facility] Imaging Routine 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) Expected: 02/05/2024, Expires: 07/14/2024 [facility] Work Phone: Comment on above: Expected: 02/05/2024, Expires: Start: 12-25-2023 End: 06-02-2024 OCT MACULA CIRRUS OU (BOTH EYES) OCT MACULA CIRRUS OU (BOTH EYES) [facility] Imaging Routine 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) Expected: 12/25/2023, Expires: 06/02/2024 [facility] Work Phone: Comment on above: Expected: 12/25/2023, Expires: Start: 11-08-2023 Advance Directive Discussion Advance Directive Discussion [facility] Start: 11-08-2023 Behavioral Health Screening Behavioral Health Screening [facility] Start: 11-08-2023 Depression Assessment Depression Assessment [facility] Start: 11-06-2023 End: 04-14-2024 OCT MACULA CIRRUS OU (BOTH EYES) OCT MACULA CIRRUS OU (BOTH EYES) [facility] Imaging Routine 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) Expected: 11/06/2023, Expires: 04/14/2024 [facility] Work Phone: Comment on above: Expected: 11/06/2023, Expires: Start: 09-18-2023 End: 02-25-2024 OCT MACULA CIRRUS OU (BOTH EYES) OCT MACULA CIRRUS OU (BOTH EYES) [facility] Imaging Routine 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) Expected: 09/18/2023, Expires: 02/25/2024 [facility] Work Phone: Comment on above: Expected: 09/18/2023, Expires: Start: 08-07-2023 End: 01-14-2024 OCT MACULA CIRRUS OU (BOTH EYES) OCT MACULA CIRRUS OU (BOTH EYES) [facility] Imaging Routine 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) Expected: 08/07/2023, Expires: 01/14/2024 [facility] Work Phone: Comment on above: Expected: 08/07/2023, Expires: 4 Start: 2023 RSV Vaccine (1 - 1-dose 75+ series) RSV Vaccine (1 - 1-dose 75+ series) [facility] Start: 07-10-2023 Mammography [facility] Start: 07-09-2023 Covid-19 Vaccine ( season) Covid-19 Vaccine ( season) [facility] Start: 07-09-2023 Influenza vaccination [facility] Start: 06-26-2023 End: 12-03-2023 OCT MACULA CIRRUS OU (BOTH EYES) OCT MACULA CIRRUS OU (BOTH EYES) [facility] Imaging Routine 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) Expected: 06/26/2023, Expires: 12/03/2023 [facility] Work Phone: Comment on above: Expected: 06/26/2023, Expires: 4 Start: 05-10-2023 End: 07-10-2023 Cancer Ag 125 [Units/volume] in Serum or Plasma CA 125 BLD Lab Routine Cyst of ovary, unspecified laterality Other intra-abdominal and pelvic swelling, mass and lump Expected: 05/10/2023, Expires: 07/10/2023 [facility] Work Phone: Comment on above: Expected: 05/10/2023, Expires: 3 Start: 05-10-2023 End: 05-10-2024 PELVIC US WHI PELVIC US [facility] Anc Imaging Routine Cyst of ovary, unspecified laterality Expected: 05/10/2023, Expires: 05/10/2024 [facility] Work Phone: Comment on above: Expected: 05/10/2023, Expires: 4 Start: 05-08-2023 End: 10-15-2023 OCT MACULA CIRRUS OU (BOTH EYES) OCT MACULA CIRRUS OU (BOTH EYES) [facility] Imaging Routine 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) Expected: 05/08/2023, Expires: 10/15/2023 [facility] Work Phone: Comment on above: Expected: 05/08/2023, Expires: 3 Start: 03-13-2023 End: 08-20-2023 OCT MACULA CIRRUS OU (BOTH EYES) OCT MACULA CIRRUS OU (BOTH EYES) [facility] Imaging Routine 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) Expected: 03/13/2023, Expires: 08/20/2023 [facility] Work Phone: Comment on above: Expected: 03/13/2023, Expires: 3 Start: 11-08-2022 ADVANCE DIRECTIVE DISCUSSION ADVANCE DIRECTIVE DISCUSSION [facility] Start: 11-08-2022 DEPRESSION ASSESSMENT DEPRESSION ASSESSMENT [facility] Start: 08-05-2022 End: 10-05-2022 Cancer Ag 125 [Units/volume] in Serum or Plasma CA 125 BLD Lab Routine Ovarian cyst, left Left lower quadrant abdominal swelling, mass and lump Expected: 08/05/2022, Expires: 10/05/2022 [facility] Work Phone: Comment on above: Expected: 08/05/2022, Expires: 2 Start: 07-09-2022 Influenza vaccination [facility] Start: 07-09-2022 Mammography MAMMOGRAM [facility] Start: 04-20-2022 Colonoscopy COLONOSCOPY [facility] Start: 04-20-2022 COLORECTAL CANCER SCREENING COLORECTAL CANCER SCREENING [facility] Start: 04-20-2022 Screening for malignant neoplasm of colon [facility] Start: 03-27-2022 COVID-19 VACCINE (5 - Booster for Moderna series) COVID-19 VACCINE (5 - Booster for Moderna series) [facility] Start: 01-22-2022 COVID-19 VACCINE (5 - Booster for Moderna series) COVID-19 VACCINE (5 - Booster for Moderna series) [facility] Start: 01-22-2022 Covid-19 Vaccine (5 - Moderna risk series) Covid-19 Vaccine (5 - Moderna risk series) [facility] Start: 11-08-2021 ADVANCE DIRECTIVE DISCUSSION ADVANCE DIRECTIVE DISCUSSION [facility] Start: 11-08-2021 DEPRESSION ASSESSMENT DEPRESSION ASSESSMENT [facility] Start: 03-24-2020 Screening for malignant neoplasm of cervix Cervical Cancer Screening [facility] Start: 09-06-2018 DIABETES SCREEN DIABETES SCREEN [facility] Start: 09-06-2018 Diabetes Screening Diabetes Screening [facility] Start: 07-18-2015 Screening for osteoporosis Bone Density Screening [facility] Start: 2013 PNEUMOVAX AGE 65 AND OVER WITH 5YR LOOKBACK (#1) PNEUMOVAX AGE 65 AND OVER WITH 5YR LOOKBACK (#1) [facility] Start: 07-09-2013 Medicare Annual Wellness Visit Medicare Annual Wellness Visit [facility] Start: 2008 RSV Vaccine (1 - 1-dose 60+ series) RSV Vaccine (1 - 1-dose 60+ series) [facility] Start: 09-28-2007 Lipid 1996 panel - Serum or Plasma Lipid Screening [facility] Start: 09-28-2007 Lipid panel Lipid Screening [facility] Start: 09-28-2007 LIPID SCREEN LIPID SCREEN [facility] Start: 1998 SHINGRIX VACCINE (1 of 2) SHINGRIX VACCINE (1 of 2) [facility] Start: 1993 COLOGUARD (FIT-DNA) COLOGUARD (FIT-DNA) [facility] Start: [address] COLONOGRAPHY [facility] Start: 1993 FECAL OCCULT BLOOD FECAL OCCULT BLOOD [facility] Start: 1993 Screening for malignant neoplasm of colon [facility] Start: 1993 SIGMOIDOSCOPY SIGMOIDOSCOPY [facility] Start: 1967 Pneumococcal Vaccine: 50+ (1 of 2 - PCV) Pneumococcal Vaccine: 50+ (1 of 2 - PCV) [facility] Start: 1967 SHINGRIX VACCINE (1 of 2) SHINGRIX VACCINE (1 of 2) [facility] Start: 1967 Urine microalbumin profile [facility] Start: 1966 Anxiety Screening Anxiety Screening [facility] Start: 1966 Depression Screening Depression Screening [facility] Start: 1960 Adult depression screening assessment DEPRESSION SCREENING [facility] Start: 1954 Pneumococcal Vaccine: 65+ (1 - PCV) Pneumococcal Vaccine: 65+ (1 - PCV) [facility] Start: 1954 Pneumococcal Vaccine: 65+ (1 of 2 - PCV) Pneumococcal Vaccine: 65+ (1 of 2 - PCV) [facility] Start: 1954 PNEUMOCOCCAL: 65+ (1 - PCV) PNEUMOCOCCAL: 65+ (1 - PCV) [facility] DBT Breast - bilater al screening MARGO SCREENING W EMANUEL Radiology Routine Encounter for screening mammogram for malignant neoplasm of breast 09/01/2024 11:09 AM EDT [facility] Work Phone: End: 10-07-2025 DBT Breast - bilateral screening MARGO SCREENING W EMANUEL Radiology Routine Encounter for screening mammogram for breast cancer 1 Occurrences starting 09/07/2024 until 10/07/2025 [facility] Work Phone: Comment on above: 1 Occurrences starting 09/07/2024 until 10/07/2025 End: 09-04-2023 MARGO SCREENING W EMANUEL MARGO SCREENING W EMANUEL Radiology Routine Encounter for screening mammogram for malignant neoplasm of breast 1 Occurrences starting 08/05/2022 until 09/04/2023 [facility] Work Phone: Comment on above: 1 Occurrences starting 08/05/2022 until 09/04/2023 PELVIC US WHI PELVIC US WHI An c Imaging Routine Ovarian cyst, left Ordered: 08/05/2022 [facility] Work Phone: Comment on above: Ordered: 08/05/2022 [facility] Immunizations Immunization Date Immunization Notes Care Provider Barbi shannon 11-03-2009 tuberculin skin test ; purified protein derivative solution, intradermal Jann Goddard MD Work Phone: [facility] 01-10-2004 tuberculin skin test ; purified protein derivative solution, intradermal Rocíoguy Garcialiliana 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 Work Phone: [facility] Payers Date Payer Category Payer Self-pay [id number] 2017 Private Health Insurance [facility] AARP SUPPLEMENT [id number] 2017-Present [phone] [address] [place] [address] Indemnity [id number] 2017 Private Health Insurance [id number] 2013 Medicare MEDICARE MEDICAR E A AND B [id number] 2013-Present [phone] [address] [address] [place] [address] Medicare [id number] 2013 Medicare [id number] 1959 Medicare [id number] 1959 Unknown [id number] 1948 Unknown [id number] 1948 Unknown [id number] 1948 Unknown [id number] 1948 Unknown [id number] Unknown [id number] Social History Date Type Detail Facility Start: 03-08-2021 End: 03-08-2021 Tobacco smoking status SDIS Unknown if ever smoked [facility] Work Phone: Start: 06-30-2016 Rare [facility] Work Phone: Start: 06-30-2016 None [facility] Work Phone: Start: 06-30-2016 Spouse/ Signif icant Other [facility] Work Phone: Start: 03-08-2021 Non-smoker [facility] Work Phone: Start: 1950 Sex Assigned At Female W [facility] Work Phone: Start: 07-20-2013 End: 09-07-2024 Tobacco smoking status NHIS Ex-smoker [facility] Start: 03-17-1971 End: 03-17-1973 History of tobacco use Current smoker [facility] Start: 03-17-1971 End: 03-17-1973 History of tobacco use Cigarette Smoker [facility] Start: 11-27-2021 End: 07-05-2025 Alcohol intake Current drinker of alcohol (finding) [facility] Start: 10-13-2020 End: 11-27-2021 Alcohol intake [facility] Start: 09-06-2015 History SDOH Alcohol Comment very rarely [facility] Start: 07-20-2013 End: 08-05-2022 Tobacco Comment Pt smoked 2-3 cigarettes once a week for 2 years. [facility] Start: 1950 Sex Assigned At Not on file [facility] Start: 02-16-2022 End: 09-03-2022 Exposure to SARS-CoV-2 (event) Not sure [facility] Start: 07-20-2013 End: 09-07-2024 Tobacco use and exposure Smokeless tobacco non-user [facility] Start: 10-13-2020 End: 03-25-2023 Tobacco use panel [facility] Work Phone: Start: 10-09-2012 National Score (1-100), lower number is lower risk Not on file [facility] Functional Status Date Assessment Result Facility 02-13-2015 Are you deaf, or do you have serious difficulty hearing No 02/13/2015 9:47 AM Marla Mckeon Ma [facility] 02-13-2015 Are you blind, or do you have serious difficulty seeing, even when wearing glasses Yes 02/13/2015 9:47 AM Marla Mckeon Ma Yes [facility] 02-13-2015 Do you have serious difficulty walking or climbing stairs No 02/13/2015 9:47 AM Marla Mckeon Ma No [facility] 02-13-2015 Do you have difficul ty dressing or bathing No 02/13/2015 9:47 AM Marla Mckeon Ma No [facility] 02-13-2015 Because of a physica l, mental, or emotional condition, do you have difficulty doing errands alone such as visiting a physician's office or shopping No 02/13/2015 9:47 AM Marla Mckeon Ma [facility] Mental Status Date Assessment Result Facility 02-13-2015 Because of a physica l, mental, or emotional condition, do you have serious difficulty concentrating, remembering, or making decisions No 02/13/2015 9:47 AM Marla Mckeon Ma No [facility] Clinical Notes 12-17-2015 to 09-20-2025 Patient InstructionsSaJann barkley MD - 07/05/2025 9:30 AM Jann Call MD - 01/18/2025 12:08 PM Jann Call MD - 11/16/2024 11:42 AM ESTPatient InstructionsPatient Instructions Note Date & Type Note Facility 09-20-2025 Note HNO ID: [id number] Author: JANN GODDARD MD Service: ? Author Type: Physician Type: Progress Notes Filed: 09/20/2025 10:16 Note Text: 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 active choroidal neovascularization right eye, inactive left -Scar both eyes -AREDS/AG -Vision limited mostly by central atrophy -S/P Eylea left eye last 02/06/2021 -S/P Eylea right eye last 11 weeks -OCT today shows improvement in cystoid macular edema, but needs to improve further -Eylea right eye today -Left eye, stable scar, observe Posterior chamber intraocular lens (PCIOL) both eyes -Posterior capsular opacity (PCO) both eyes Last dilated fundus exam 06/2025 Follow Up: 9-10 weeks for DTI Eylea right eye I have confirmed and edited as necessary the relevant HPI, ophthalmic history, ROS, and exam findings as obtained by others. I have seen and examined this patient. I have discussed the case and the management of this patient's care with the Resident, if applicable. I also have reviewed and agree with the assessment and plan as stated above and agree with all of its relevant components. [facility] 09-19-2025 Note HNO ID: [id number] Author: ANJELICA GEORGE APRN.CNM Service: ? Author Type: Furrier Apprentice Type: Progress Notes Filed: 09/19/2025 17:20 Note Text: Stacy Hart is a 75 year old female who presents with her daughter for problem visit review pelvic ultrasound. HPI: Patient completed pelvic ultrasound on 09/07/25 for left ovarian cyst. Results of pelvic US indicated: Possible endometrial polyp that was not visualized on prior study. Consider hysteroscopic evaluation as clinically indicated. Patient was referred at this time back to [facility] due to history of being seen by Dr. Bowman in the past. Patient very anxious over the incidental finding of a possible endometrial polyp and is here to day to discuss recommendation for treatment. She stated at one point she was requesting to have a hysterectomy but now declines. She has several questions about polyps, ovarian cyst and removal. 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 History Comments: Sexual Activity: Not Currently; No partner data on record Contraception: No contraception data on record PAST MEDICAL HISTORY Diagnosis Date Breast cancer (HCC) 2012 right breast Cyst of left ovary Depression Endophthalmitis Hypothyroid Macular degeneration both eyes Osteopenia Rheumatoid arthritis PAST SURGICAL HISTORY Procedure Laterality Date ANESTH, SECTION 1982 2; vertical midline and pfann; tubal ligation BX/EXC LYMPH NODE OPEN DEEP AXILLARY NODE 04/05/2013 INTRAOP SENTINEL LYMPH NODE ID W/DYE INJECTION 04/05/2013 LAPAROSCOPY SURG CHOLECYSTECTOMY 09/11/2015 MASTECTOMY, PARTIAL Right 04/05/2013 Lumpectomy OVARIAN CYSTECTOMY UNI/BI right and left OVARIAN WEDGE RESECTION PAST SURGICAL HISTORY OF 2008 left knee replacement PREOP PLACEMENT NEEDLE LOC 04/05/2013 TONSILLECTOMY AND ADENOIDECTOMY XCAPSL CTRC RMVL INSJ IO LENS PROSTH W/O ECP Left 10/24/2015 Cataract Extraction with PC IOL/Femto/Toric XCAPSL CTRC RMVL INSJ IO LENS PROSTH W/O ECP Right 12/11/2015 Cataract Extraction with PC IOL/Femto/LRI REVIEW OF SYSTEMS Abdomen: No bloating, early satiety, indigestion, or increased flatulence. No abdominal pain, nausea, vomiting, diarrhea, or constipation. Bladder: No dysuria, gross hematuria, urinary frequency, urinary urgency, or incontinence. Breast: No breast lumps, nipple d/c, overlying skin changes, redness or skin retraction. Expanded ROS: N/A Allergies and current medication updated:Yes SENSITIVE EXAM: Sensitive exam not performed. EXAM: There were no vitals taken for this visit. GENERAL: upset and emotional, female in mild distress HEENT: Normocephalic NECK: Supple DERMATOLOGY: Normal BREAST: deferred CHEST: Normal inspiratory effort ABDOMEN: Deferred PELVIC: deferred BIMANUAL: deferred NEURO: alert and oriented x3,exam grossly non-focal EXTREMITIES: normal ASSESSMENT AND PLAN: Assessment AND Plan Cyst of left ovary Endometrial polyp Postmenopausal - Patient denies any AUB, or pelvic pain - Discussed and educated on polyp and removal during hysteroscopy - under anesthesia - It was recommended to have follow up EMB and would like this completed during polypectomy. - Patient does NOT want a hysterectomy - She prefers procedure to be completed at [facility] under anesthesia - Will send to nursing to assist with scheduling - Chart sent to Dr. Mcleod to confirm she can have this procedure completed at [facility] and does not need seen by [facility]. Anjelica George APRN.VANESSA [facility] 09-07-2025 Note HNO ID: [id number] Author: LEIGHA KESSLER MD Service: ? 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 Encounter Diagnosis ICD-10-CM 1. Cyst of left ovary N83.202 Please see report under imaging tab. Leigha Kessler MD September 07, 2025 12:19 PM [facility] 09-07-2025 Note HNO ID: [id number] Author: WHITNEY JEFFRIES Mammo Tech Service: ? Author Type: [employer]imehouse Worker Type: Progress Notes Filed: 09/07/2025 11:18 Note Text: Radiology Service Progress Note PATIENT NAME: Stacy Hart DATE OF SERVICE: September 07, 2025 TIME: 11:17 AM PATIENT IDENTITY VERIFICATION COMPLETED USING TWO (2) IDENTIFIERS: Name and Date of confirmed by patient verbally. FALL SCREENING: Has the patient had 2 falls in the last year or 1 fall with injury or currently using an Ambulatory Assistive Device (Walker, Cane, Wheelchair, Crutches, etc.)? Yes, Patient High Risk for Falls What interventions were put in place to prevent falls during this visit? Increased Observations by Caregivers PATIENT GENDER DATA: Assigned female at . status: : No status: NO. PATIENT RELEVANT IMPLANT DATA REVIEWED: Not Applicable PATIENT PRESENTS WITH AN IMPLANTABLE OR ATTACHED INSPECTOR FABRIC: No RADIOLOGY DEPARTMENT: Mammography PERIPHERAL IV DATA: Not applicable SIGNED BY: Lev Brian September 07, 2025 11:17 AM [facility] 07-05-2025 Note Date of Procedure 07/05/2025. OCT Macula Interpretation Right Eye Findings include Cystoid macular edema, Subretinal fluid, PED, Drusen, Drusenoid PED, Ellipsoid Zone Loss, RPE Irregularity, Atrophy; Negative for Intraretinal fluid. Left Eye Findings include Ellipsoid Zone Loss, RPE Irregularity, Atrophy; Negative for Intraretinal fluid, Cystoid macular edema, Subretinal fluid. Interval Change Right Eye Worse. Left Eye Stable. [facility] 07-05-2025 Note Date of Procedure 07/05/2025 [place] Protocol Safety Checklist A moment of CARE was completed Sign In Sign in communication not applicable due to emergent procedure. Personnel directly involved with the procedure wore the appropriate PEE. Special Equipment: N/A. Patient/surrogate stated/verified patient name, date of , relevant allergies, intended procedure. Provider Confirms: Relevant labs, photos, and/or imaging studies have been reviewed. Intended patient and procedure match the source document(s) (e.g. consent, associated studies [imaging, pathology]). Consent obtained and matches the intended procedure. Correct side/site marked and visible. Medications required for procedure verified. Fire risk assessed and interventions discussed: N/A. expiration date(s) reviewed. Sign Out All specimens are correctly labeled and sent: N/A. All instruments, equipment, possible retained foreign bodies accounted for. Post-procedure POC communicated to patient or surrogate. Post-procedure POC communicated to patient's multidisciplinary team: N/A. Anesthesia 1-2 drops Topical 0.5% Proparacaine, 0.5 mL subconjunctival injection of 2% Lidocaine. Prep 5% Betadine. Injection Administration Medication: 2 mg aflibercept prefilled syringe 2 mg/0.05 mL Route: INTRAVITREAL, Site: Right Balance Wasted Residual medication less than 1 unit was discarded. Anterior Chamber Paracentesis No. Post Injection Evaluation Patient has at least hand motion vision. Post Procedure Medications None. Home Going Prescription None. [facility] 07-05-2025 Instructions Jann Goddard MD - 07/05/2025 9:58 AM EDT Post Injection Patient Information You had eye injection(s) today. These are your after injection instructions. Today: Preservative free artificial tears 1 drop every hour while awake as needed Tomorrow: Preservative free artificial tears 1 drop every 2 hours while awake as needed Care instructions after eye injections: Do not rub or touch your eye other than dabbing lightly with a tissue An rjlk-yre-rwvxizk pain reliever (i.e. Tylenol) can be used for mild soreness Use artificial tears/lubricating drops once an hour as needed for comfort (chill the tears in the refrigerator for more comfort). If you are using the tears more than 4 times a day they need to be the preservative free kind Warm or cool compresses are okay It is okay to shower and wash your face. No swimming pools or saunas for 24 hours COMMON symptoms after successful eye injections: Mild to moderate pain or irritation beginning the day of the injection. This should begin to improve the following day. Eyelash in the eye or kellen/gritty sensation Tearing Mild floaters or bubbles in your vision - usually resolves after 1-2 days Bloody tears for 1-2 days after treatment Eye Redness Also known as subconjunctival hemorrhage This bruise can cover the entire white part of the eye and may last a few weeks CONCERNING symptoms after eye injections: Severe, constant pain Worsening pain after the first day Decreased vision Severe, constant floaters Curtain or veil in your vision New eye redness that was not there after the injection and covers the whole eye Please call the office immediately for any of the above listed concerning symptoms or with any other questions. If it is after hours please call [phone] which will give instructions on how to reach the eye doctor control board operator documented in this encounter [facility] 07-05-2025 History of Present illness Narrative 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 active choroidal neovascularization right eye, inactive left -Scar both eyes -AREDS/AG -Vision limited mostly by central atrophy -S/P Eylea left eye last 02/06/2021 -S/P Eylea right eye last 14 weeks -OCT today shows worsening fluid/subretinal fluid -Eylea right eye today (Reduce to 10 weeks) -Left eye, stable scar, observe Posterior chamber intraocular lens (PCIOL) both eyes -Posterior capsular opacity (PCO) both eyes Last dilated fundus exam 06/2025 Follow Up: 10 weeks for DTI Eylea right eye I have confirmed and edited as necessary the relevant HPI, ophthalmic history, ROS, and exam findings as obtained by others. I have seen and examined this patient. I have discussed the case and the management of this patient's care with the Resident, if applicable. I also have reviewed and agree with the assessment and plan as stated above and agree with all of its relevant components. documented in this encounter [facility] 07-05-2025 Note HNO ID: [id number] Author: JANN GODDARD MD Service: ? Author Type: Physician Type: Progress Notes Filed: 07/05/2025 10:50 Note Text: 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 active choroidal neovascularization right eye, inactive left -Scar both eyes -AREDS/AG -Vision limited mostly by central atrophy -S/P Eylea left eye last 02/06/2021 -S/P Eylea right eye last 14 weeks -OCT today shows worsening fluid/subretinal fluid -Eylea right eye today (Reduce to 10 weeks) -Left eye, stable scar, observe Posterior chamber intraocular lens (PCIOL) both eyes -Posterior capsular opacity (PCO) both eyes Last dilated fundus exam 06/2025 Follow Up: 10 weeks for DTI Eylea right eye I have confirmed and edited as necessary the relevant HPI, ophthalmic history, ROS, and exam findings as obtained by others. I have seen and examined this patient. I have discussed the case and the management of this patient's care with the Resident, if applicable. I also have reviewed and agree with the assessment and plan as stated above and agree with all of its relevant components. [facility] 03-29-2025 Note HNO ID: [id number] Author: JANN GODDARD MD Service: ? Author Type: Physician Type: Progress Notes Filed: 03/29/2025 10:19 Note Text: 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 active choroidal neovascularization right eye, inactive left -Scar both eyes -AREDS/AG -Vision limited mostly by central atrophy -S/P Eylea right eye last 10 weeks -OCT today better -Eylea right eye today -Left eye, stable scar, observe Posterior chamber intraocular lens (PCIOL) both eyes -Posterior capsular opacity (PCO) both eyes Last dilated fundus exam 01/2025 Follow Up: 12-13 weeks for dilated fundus exam, OCT both eyes, Eylea right eye I have confirmed and edited as necessary the relevant HPI, ophthalmic history, ROS, and exam findings as obtained by others. I have seen and examined this patient. I have discussed the case and the management of this patient's care with the Resident, if applicable. I also have reviewed and agree with the assessment and plan as stated above and agree with all of its relevant components. [facility] 01-18-2025 Note Date of Procedure 01/18/2025. [employer] Worker Information Business Services Tech: jose j. OCT Macula Interpretation Right Eye Findings include Intraretinal fluid, IS/OS junction, RPE Irregularity; Negative for Cystoid macular edema, Subretinal fluid. Left Eye Findings include IS/OS junction, RPE Irregularity; Negative for Intraretinal fluid, Cystoid macular edema, Subretinal fluid. Interval Change Right Eye Stable. Left Eye Stable. [facility] 01-18-2025 Note HNO ID: [id number] Author: JANN GODDARD MD Service: ? Author Type: Physician Type: Progress Notes Filed: 01/18/2025 12:20 Note Text: 1. 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) Right eye, inactive left -Scar both eyes -AREDS/AG Vision limited mostly by central atrophy 2. Posterior chamber intraocular lens (PCIOL) both eyes Posterior capsular opacity (PCO) both eyes Plan: S/p Eylea 9 weeks ago right eye with stable IRF Left eye stable scar, observation Eylea today right eye, Keep at 7-9 weeks for sti I have confirmed and edited as necessary the relevant HPI, ophthalmic history, ROS, and exam findings as obtained by others. I have seen and examined this patient. I have discussed the case and the management of this patient's care with the Resident, if applicable. I also have reviewed and agree with the assessment and plan as stated above and agree with all of its relevant components. [facility] 01-18-2025 Note Date of Procedure 01/18/2025 [place] Protocol Safety Checklist Sign In: A moment to CARE completed, Special equipment verified, Appropriate PPE verified, Patient name, date of , allergies and intended procedure verified. Provider Confirms: Intended patient and procedure match the source document, Consent documented and matches the intended procedure, Correct side/site marked visible. Relevant labs, photos, and/or imaging studies have been reviewed. Medications required for procedure verified. Fire risk assessed and interventions discussed. Correct implant confirmed and expiration reviewed. Anesthesia 1-2 drops Topical 0.5% Proparacaine, 0.5 mL subconjunctival injection of 2% Lidocaine. Prep 5% Betadine. Injection Administration Medication: 2 mg aflibercept prefilled syringe 2 mg/0.05 mL Route: INTRAVITREAL, Site: Right Balance Wasted Residual medication less than 1 unit was discarded. Anterior Chamber Paracentesis No. Post Injection Evaluation Patient has at least hand motion vision. Post Procedure Medications None. Home Going Prescription None. Sign Out Sign out discussion completed, All instruments, equipment, and/or possible retained foreign bodies accounted for, Post-procedure follow up management communicated. No specimens. [facility] 01-18-2025 History of Present illness Narrative 1. 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) Right eye, inactive left -Scar both eyes -AREDS/AG Vision limited mostly by central atrophy 2. Posterior chamber intraocular lens (PCIOL) both eyes Posterior capsular opacity (PCO) both eyes Plan: S/p Eylea 9 weeks ago right eye with stable IRF Left eye stable scar, observation Eylea today right eye, Keep at 7-9 weeks for sti I have confirmed and edited as necessary the relevant HPI, ophthalmic history, ROS, and exam findings as obtained by others. I have seen and examined this patient. I have discussed the case and the management of this patient's care with the Resident, if applicable. I also have reviewed and agree with the assessment and plan as stated above and agree with all of its relevant components. documented in this encounter [facility] 11-16-2024 Note Date of Procedure 11/16/2024. [place] Worker Information Business Services Tech: JOSE J. OCT Macula Interpretation Right Eye Findings include Negative for Intraretinal fluid, Cystoid macular edema, Subretinal fluid. Left Eye Findings include Negative for Intraretinal fluid, Cystoid macular edema, Subretinal fluid. Interval Change Right Eye Stable. Left Eye Stable. [facility] 11-16-2024 Note Date of Procedure 11/16/2024 [facility] Protocol Safety Checklist Sign In: A moment to CARE completed, Special equipment verified, Appropriate PPE verified, Patient name, date of , allergies and intended procedure verified. Provider Confirms: Intended patient and procedure match the source document, Consent documented and matches the intended procedure, Correct side/site marked visible. Relevant labs, photos, and/or imaging studies have been reviewed. Medications required for procedure verified. Fire risk assessed and interventions discussed. Correct implant confirmed and expiration reviewed. Anesthesia 1-2 drops Topical 0.5% Proparacaine, 0.5 mL subconjunctival injection of 2% Lidocaine. Prep 5% Betadine. Injection Administration Medication: 2 mg aflibercept prefilled syringe 2 mg/0.05 mL Route: INTRAVITREAL, Site: Right Balance Wasted Residual medication less than 1 unit was discarded. Anterior Chamber Paracentesis No. Post Injection Evaluation Patient has at least hand motion vision. Post Procedure Medications None. Home Going Prescription None. Sign Out Sign out discussion completed, All instruments, equipment, and/or possible retained foreign bodies accounted for, Post-procedure follow up management communicated. No specimens. [facility] 11-16-2024 Note HNO ID: [id number] Author: JANN GODDARD MD Service: ? Author Type: Physician Type: Progress Notes Filed: 11/16/2024 12:23 Note Text: 1. 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) Right eye, inactive left -Scar both eyes -AREDS/AG Vision limited mostly by central atrophy 2. Posterior chamber intraocular lens (PCIOL) both eyes Posterior capsular opacity (PCO) both eyes Plan: S/p Eylea 9 weeks ago right eye with stable IRF Left eye stable scar, observation Eylea today right eye, Keep at 7-9 weeks for sti Full exam in january I have confirmed and edited as necessary the relevant HPI, ophthalmic history, ROS, and exam findings as obtained by others. I have seen and examined this patient. I have discussed the case and the management of this patient's care with the Resident, if applicable. I also have reviewed and agree with the assessment and plan as stated above and agree with all of its relevant components. [facility] 11-16-2024 History of Present illness Narrative 1. 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) Right eye, inactive left -Scar both eyes -AREDS/AG Vision limited mostly by central atrophy 2. Posterior chamber intraocular lens (PCIOL) both eyes Posterior capsular opacity (PCO) both eyes Plan: S/p Eylea 9 weeks ago right eye with stable IRF Left eye stable scar, observation Eylea today right eye, Keep at 7-9 weeks for sti Full exam in january I have confirmed and edited as necessary the relevant HPI, ophthalmic history, ROS, and exam findings as obtained by others. I have seen and examined this patient. I have discussed the case and the management of this patient's care with the Resident, if applicable. I also have reviewed and agree with the assessment and plan as stated above and agree with all of its relevant components. documented in this encounter [facility] 09-14-2024 Note Date of Procedure 09/14/2024 [facility] [facility] Protocol Safety Checklist Sign In: A moment to CARE completed, Special equipment verified, Appropriate PPE verified, Patient name, date of , allergies and intended procedure verified. Provider Confirms: Consent documented and matches the intended procedure, Correct side/site marked visible, Intended patient and procedure match the source document. Relevant labs, photos, and/or imaging studies have been reviewed. Medications required for procedure verified. Fire risk assessed and interventions discussed. No implants. Anesthesia 0.5 mL subconjunctival injection of 2% Lidocaine, 1-2 drops Topical 0.5% Proparacaine. Prep 5% Betadine. Injection Administration Medication: 2 mg aflibercept prefilled syringe 2 mg/0.05 mL Route: INTRAVITREAL, Site: Right Balance Wasted Residual medication less than 1 unit was discarded. Anterior Chamber Paracentesis No. Post Injection Evaluation Patient has at least hand motion vision. Post Procedure Medications None. Home Going Prescription None. Sign Out Sign out discussion completed, All instruments, equipment, and/or possible retained foreign bodies accounted for, Post-procedure follow up management communicated. No specimens. [facility] 09-14-2024 Instructions Awa Patrick MD, PhD - 09/14/2024 12:29 PM EST Post Injection Patient Information You had eye injection(s) today. These are your after injection instructions. Today: Preservative free artificial tears 1 drop every hour while awake as needed Tomorrow: Preservative free artificial tears 1 drop every 2 hours while awake as needed Care instructions after eye injections: Do not rub or touch your eye other than dabbing lightly with a tissue An byvg-zum-jdoqiqc pain reliever (i.e. Tylenol) can be used for mild soreness Use artificial tears/lubricating drops once an hour as needed for comfort (chill the tears in the refrigerator for more comfort). If you are using the tears more than 4 times a day they need to be the preservative free kind Warm or cool compresses are okay It is okay to shower and wash your face. No swimming pools or saunas for 24 hours COMMON symptoms after successful eye injections: Mild to moderate pain or irritation beginning the day of the injection. This should begin to improve the following day. Eyelash in the eye or kellen/gritty sensation Tearing Mild floaters or bubbles in your vision - usually resolves after 1-2 days Bloody tears for 1-2 days after treatment Eye Redness Also known as subconjunctival hemorrhage This bruise can cover the entire white part of the eye and may last a few weeks CONCERNING symptoms after eye injections: Severe, constant pain Worsening pain after the first day Decreased vision Severe, constant floaters Curtain or veil in your vision New eye redness that was not there after the injection and covers the whole eye Please call the office immediately for any of the above listed concerning symptoms or with any other questions. If it is after hours please call [phone] which will give instructions on how to reach the eye doctor control board operator documented in this encounter [facility] 09-14-2024 Note Date of Procedure 09/14/2024. [place] Tech: re. Interpretation Right Eye Abnormal foveal contour. Findings include Intraretinal fluid, CNV, Epiretinal membrane, IS/OS junction, RPE Irregularity, Atrophy. Left Eye Abnormal foveal contour. Findings include CNV, IS/OS junction, RPE Irregularity, Atrophy; Negative for Intraretinal fluid, Cystoid macular edema, Subretinal fluid. [facility] 09-14-2024 History of Present illness Narrative 1. 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) Right eye, inactive left -Scar both eyes -AREDS/AG Vision limited mostly by central atrophy 2. Posterior chamber intraocular lens (PCIOL) both eyes Posterior capsular opacity (PCO) both eyes Plan: S/p Eylea 8 weeks ago right eye with stable IRF Left eye stable scar, observation Eylea today right eye, Keep at 7-9 weeks for sti Full exam in january I have confirmed and edited as necessary the relevant HPI, ophthalmic history, ROS, and exam findings as obtained by others. I have seen and examined this patient. I have discussed the case and the management of this patient's care with the Resident, if applicable. I also have reviewed and agree with the assessment and plan as stated above and agree with all of its relevant components. documented in this encounter [facility] 09-07-2024 History of Present illness Narrative Stacy Hart is a 74 year old female who presents for problem visit to discuss her labs and ultrasound. HPI: Stacy presents for a follow up visit to go over her labs and her pelvic ultrasound. Pelvic ultrasound 09/01/24 showed: Normal appearing axial uterus that measures 58 mm x 31 mm x 43 mm. Endometrium contains a small anechoic fluid collection and measures 3.1 mm. Right ovary is not visualized. Left ovary contains an 81 x 89 x 60 mm unilocular simple cyst. No adnexal masses were observed. There is no free fluid visualized in the peritoneal cavity. Comparison to ultrasound on 06/07/2023: Left ovary contained a 80 x 68 x 91 mm unilocular simple cyst. Comparison to ultrasound on 08/17/2022: Left ovary contained an 87 x 68 x 96 mm unilocular simple cyst. Comparison to ultrasound on 03/18/2021: Left ovary contained a 93 x 67 x 73 mm unilocular simple cyst. Recommendations Stable , O-RADS 2 left ovarian simple cyst, almost certainly benign. Follow up ultrasound is recommended in 12 months due to size of cyst. CA 125 on 09/01: 23 2022: 18 2021: 18 2020:[address] Colby NIX for this in the past, 05/02/2021. She does struggle with flatulence. She denies early satiety, bloating, or constipation. She declines an exam today. Mammogram 2023 BIRADS 2. History of breast cancer. She denies any skin changes or concerns of the breasts. Her on August 13. 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: Postmenopausal Age at Menarche: Age at First : Age at Menopause: Gallery Assistant History Comments: Sexual Activity: Not Currently; No partner data on record Contraception: No contraception data on record PAST MEDICAL HISTORY Diagnosis Date Breast cancer (HCC) 2012 right breast Cyst of left ovary Depression Endophthalmitis Hypothyroid Macular degeneration both eyes Osteopenia Rheumatoid arthritis PAST SURGICAL HISTORY Procedure Laterality Date ANESTH, SECTION 1982 2; vertical midline and pfann; tubal ligation BX/EXC LYMPH NODE OPEN DEEP AXILLARY NODE 04/05/2013 INTRAOP SENTINEL LYMPH NODE ID W/DYE INJECTION 04/05/2013 LAPAROSCOPY SURG CHOLECYSTECTOMY 09/11/2015 MASTECTOMY, PARTIAL Right 04/05/2013 Lumpectomy OVARIAN CYSTECTOMY UNI/BI right and left OVARIAN WEDGE RESECTION PAST SURGICAL HISTORY OF 2008 left knee replacement PREOP PLACEMENT NEEDLE LOC 04/05/2013 TONSILLECTOMY & ADENOIDECTOMY <AGE 10 XCAPSL CTRC RMVL INSJ IO LENS PROSTH W/O ECP Left 10/24/2015 Cataract Extraction with PC IOL/Femto/Toric XCAPSL CTRC RMVL INSJ IO LENS PROSTH W/O ECP Right 12/11/2015 Cataract Extraction with PC IOL/Femto/LRI FAMILY HISTORY Problem Relation Age of Onset Emphysema Father Colon Cancer Father Alcohol/Drug Father w/ cirrhosis No Ocular Disease Father Stroke Mother No Ocular Disease Mother Colon Cancer Paternal Grandmother Arthritis Paternal Grandmother Colon Cancer Paternal Aunt Breast Cancer Maternal Aunt Arthritis Other cousin RA Blood Disease Maternal Aunt leukemia Social History Tobacco Use Smoking status: Former Current packs/day: 0.00 Types: Cigarettes Start date: 03/17/1971 Quit date: 03/17/1973 Years since quittin.5 Smokeless tobacco: Never Tobacco comments: Pt smoked 2-3 cigarettes once a week for 2 years. Vaping Use Vaping status: Never Used Substance Use Topics Alcohol use: Yes Alcohol/week: 1.0 standard drink of alcohol Types: 1 Cans of Beer (12oz) per week Comment: very rarely Drug use: No Current Outpatient Medications Medication Sig methotrexate sodium 25 mg/mL soln INJECT 0.5 MILLILITER(S) ONCE A WEEK Injection sertraline (ZOLOFT) 25 mg tablet Take 1 tablet by mouth every afternoon. levothyroxine (SYNTHROID) 150 mcg tablet Take 1 tablet by mouth every afternoon. Cholecalciferol, Vitamin D3, 125 mcg (5,000 unit) cap Take 1 capsule by mouth every afternoon. traMADol (ULTRAM) 50 mg tablet Take 50 mg by mouth three times daily as needed. methotrexate, PF, 25 mg/mL soln one time a week. leucovorin (LEUCOVORIN) 15 mg tablet Take 15 mg by mouth one time a week. folic acid 800 mcg tablet Take two tablets by mouth once daily. bevacizumab 25 mg/mL injection One injection in both eyes every 8 weeks. No current facility-administered medications for this visit. Allergies As of Date: 09/07/2024 (No Known Allergies) Fully Assessed 09/07/2024 REVIEW OF SYSTEMS Abdomen: No bloating, early satiety, indigestion. No abdominal pain, nausea, vomiting, diarrhea, or constipation. + flatulence Allergies and current medication updated:Yes SENSITIVE EXAM: Sensitive exam declined. Discussed rationale and impact on treatment. EXAM: BP 120/68 Wt 193 lb (87.5kg) GENERAL: pleasant, female in no apparent distress HEENT: Normocephalic, atraumatic, mucus membranes moist, and no lesions CHEST: Normal inspiratory effort NEURO: alert and oriented x3,exam grossly non-focal EXTREMITIES: normal ASSESSMENT AND PLAN: 1. Cyst of left ovary - ICD9: 620.2, ICD10: N83.202 (primary diagnosis) - Reviewed only surgical pathology would confirm whether cyst is benign/malignant - Reviewed cyst stable in size and CA125 normal, reassuring - Asymptomatic, besides some flatulence that resolves - Reviewed small amount of fluid on ultrasound. Reviewed 3.1 mm endometrial lining. EMB benign 2020 - Reviewed that EMB could be repeated, declines - Stacy would like to repeat ultrasound and CA 125 in 1 year. To notify if new symptoms should occur. - Reviewed signs of torsion and when to go to ER 2. 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 Encounter Diagnosis ICD-10-CM 1. Cyst of left ovary N83.202 Please see report under imaging tab. Leigha Kessler MD September 04, 2024 11:23 AM documented in this encounter [facility] 09-01-2024 History of Present illness Narrative Radiology Service Progress Note PATIENT NAME: Stacy Hart DATE OF SERVICE: September 01, 2024 TIME: 11:16 AM PATIENT IDENTITY VERIFICATION COMPLETED USING TWO (2) IDENTIFIERS: Name and Date of confirmed by patient verbally. FALL SCREENING: Has the patient had 2 falls in the last year or 1 fall with injury or currently using an Ambulatory Assistive Device (Walker, Cane, Wheelchair, Crutches, etc.)? Yes, Patient High Risk for Falls What interventions were put in place to prevent falls during this visit? Increased Observations by Caregivers PATIENT GENDER DATA: Female. status: : No status: NO. PATIENT RELEVANT IMPLANT DATA REVIEWED: Not Applicable PATIENT PRESENTS WITH AN IMPLANTABLE OR ATTACHED INSPECTOR FABRIC: No RADIOLOGY DEPARTMENT: Mammography PERIPHERAL IV DATA: Not applicable SIGNED BY: Hiren Briano [place] September 01, 2024 11:16 AM documented in this encounter [facility] 08-30-2024 Telephone encounter Note Patient notified and voiced understanding. Rahel Michaud RN [facility] 08-30-2024 Miscellaneous Notes Patient notified and voiced understanding. Rahel Michaud RN ordered Pt is coming in for Mammo and Pelvic US on 09/01/24. Would like to have labs done as well. States she thinks it is the CA125 BLD. documented in this encounter [facility] 08-30-2024 Telephone encounter Note ordered [facility] Work Phone: 08-29-2024 Telephone encounter Note Pt is coming in for Mammo and Pelvic US on 09/01/24. Would like to have labs done as well. States she thinks it is the CA125 BLD. [facility] Work Phone: 07-20-2024 History of Present illness Narrative 1. 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) Right eye, inactive left -Scar both eyes -AREDS/AG Vision limited mostly by central atrophy 2. Posterior chamber intraocular lens (PCIOL) both eyes Posterior capsular opacity (PCO) both eyes Plan: S/p Eylea 9 weeks ago right eye with poor OCT today, not central mac but no fluid seen Left eye stable scar, observation Eylea today right eye, Keep at 8-9 weeks. DTI Eylea next visit with Dr. Patrick I have confirmed and edited as necessary the relevant HPI, ophthalmic history, ROS, and exam findings as obtained by others. I have seen and examined this patient. I have discussed the case and the management of this patient's care with the Resident, if applicable. I also have reviewed and agree with the assessment and plan as stated above and agree with all of its relevant components. documented in this encounter [facility] 07-20-2024 Note Date of Procedure 07/20/2024. Interpretation Right Eye Findings include Drusen, Drusenoid PED, Atrophy; Negative for Intraretinal fluid, Cystoid macular edema, Subretinal fluid. Left Eye Findings include Drusen, Drusenoid PED, Atrophy; Negative for Intraretinal fluid, Cystoid macular edema, Subretinal fluid. Interval Change Right Eye Stable. Left Eye Stable. [facility] 07-20-2024 Note Date of Procedure 07/20/2024 [facility] Protocol Safety Checklist Sign In: A moment to CARE completed, Special equipment verified, Appropriate PPE verified, Patient name, date of , allergies and intended procedure verified. Provider Confirms: Intended patient and procedure match the source document, Consent documented and matches the intended procedure, Correct side/site marked visible. Relevant labs, photos, and/or imaging studies have been reviewed. Medications required for procedure verified. Fire risk assessed and interventions discussed. Correct implant confirmed and expiration reviewed. Anesthesia 1-2 drops Topical 0.5% Proparacaine, 0.5 mL subconjunctival injection of 2% Lidocaine. Prep 5% Betadine. Injection Administration Medication: 2 mg aflibercept prefilled syringe 2 mg/0.05 mL Route: INTRAVITREAL, Site: Right Balance Wasted Residual medication less than 1 unit was discarded. Anterior Chamber Paracentesis No. Post Injection Evaluation Patient has at least hand motion vision. Post Procedure Medications None. Home Going Prescription None. Sign Out Sign out discussion completed, All instruments, equipment, and/or possible retained foreign bodies accounted for, Post-procedure follow up management communicated. No specimens. [facility] 05-25-2024 Note Date of Procedure 05/25/2024 [facility] Protocol Safety Checklist Sign In: A moment to CARE completed, Special equipment verified, Appropriate PPE verified, Patient name, date of , allergies and intended procedure verified. Provider Confirms: Consent documented and matches the intended procedure, Correct side/site marked visible, Intended patient and procedure match the source document. Relevant labs, photos, and/or imaging studies have been reviewed. Medications required for procedure verified. Fire risk assessed and interventions discussed. No implants. Anesthesia 0.5 mL subconjunctival injection of 2% Lidocaine, 1-2 drops Topical 0.5% Proparacaine. Prep 5% Betadine. Injection Administration Medication: 2 mg aflibercept prefilled syringe 2 mg/0.05 mL Route: INTRAVITREAL, Site: Right Balance Wasted Residual medication less than 1 unit was discarded. Anterior Chamber Paracentesis No. Post Injection Evaluation Patient has at least hand motion vision. Post Procedure Medications None. Home Going Prescription None. Sign Out Sign out discussion completed, All instruments, equipment, and/or possible retained foreign bodies accounted for, Post-procedure follow up management communicated. No specimens. [facility] 05-25-2024 Instructions Awa Patrick MD, PhD - 05/25/2024 11:27 AM EDT Post Injection Patient Information You had eye injection(s) today. These are your after injection instructions. Today: Preservative free artificial tears 1 drop every hour while awake as needed Tomorrow: Preservative free artificial tears 1 drop every 2 hours while awake as needed Care instructions after eye injections: Do not rub or touch your eye other than dabbing lightly with a tissue An pric-kaa-lumjsnm pain reliever (i.e. Tylenol) can be used for mild soreness Use artificial tears/lubricating drops once an hour as needed for comfort (chill the tears in the refrigerator for more comfort). If you are using the tears more than 4 times a day they need to be the preservative free kind Warm or cool compresses are okay It is okay to shower and wash your face. No swimming pools or saunas for 24 hours COMMON symptoms after successful eye injections: Mild to moderate pain or irritation beginning the day of the injection. This should begin to improve the following day. Eyelash in the eye or kellen/gritty sensation Tearing Mild floaters or bubbles in your vision - usually resolves after 1-2 days Bloody tears for 1-2 days after treatment Eye Redness Also known as subconjunctival hemorrhage This bruise can cover the entire white part of the eye and may last a few weeks CONCERNING symptoms after eye injections: Severe, constant pain Worsening pain after the first day Decreased vision Severe, constant floaters Curtain or veil in your vision New eye redness that was not there after the injection and covers the whole eye Please call the office immediately for any of the above listed concerning symptoms or with any other questions. If it is after hours please call [phone] which will give instructions on how to reach the eye doctor control board operator documented in this encounter [facility] 05-25-2024 Note Date of Procedure 05/25/2024. [place] [employer] Tech: be. Interpretation Right Eye Abnormal foveal contour. Findings include CNV, Drusen, Epiretinal membrane, IS/OS junction, RPE Irregularity, Atrophy; Negative for Cystoid macular edema, Subretinal fluid. Left Eye Abnormal foveal contour. Findings include Drusen, IS/OS junction, RPE Irregularity, Atrophy; Negative for Cystoid macular edema, Subretinal fluid. [facility] 05-25-2024 History of Present illness Narrative 1. 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) Right eye, inactive left -Scar both eyes -AREDS/AG Vision limited mostly by central atrophy 2. Posterior chamber intraocular lens (PCIOL) both eyes Posterior capsular opacity (PCO) both eyes Plan: S/p Eylea 9 weeks ago right eye with poor OCT today, not central mac but no fluid seen Left eye stable scar, observation Eylea today right eye, consider extending treatment Keep at 8-9 weeks for full exam with Dr. Goddard I have confirmed and edited as necessary the relevant ophthalmic history, ROS, and the neuro exam findings as obtained by others. I have seen and examined this patient. I have discussed the case and the management of this patient's care with the Resident/Fellow, if applicable. I also have reviewed and agree with the assessment and plan as stated above and agree with all of its relevant components. Awa Patrick MD documented in this encounter [facility] 05-24-2024 Telephone encounter Note ordered [facility] 05-24-2024 Miscellaneous Notes ordered Orders pended for Pelvic US WHI and CA 125 BLD. Previous orders will prior to appointment scheduled for 08/14/24. documented in this encounter [facility] 05-24-2024 Telephone encounter Note Orders pended for Pelvic US WHI and CA 125 BLD. Previous orders will prior to appointment scheduled for 08/14/24. [facility] 03-23-2024 Note Date of Procedure 03/23/2024 [facility] [facility] Protocol Safety Checklist Sign In: A moment to CARE completed, Special equipment verified, Appropriate PPE verified, Patient name, date of , allergies and intended procedure verified. Provider Confirms: Consent documented and matches the intended procedure, Correct side/site marked visible, Intended patient and procedure match the source document. Relevant labs, photos, and/or imaging studies have been reviewed. Medications required for procedure verified. Fire risk assessed and interventions discussed. No implants. Anesthesia 0.5 mL subconjunctival injection of 2% Lidocaine, 1-2 drops Topical 0.5% Proparacaine. Prep 5% Betadine. Injection Administration Medication: 2 mg aflibercept prefilled syringe 2 mg/0.05 mL Route: INTRAVITREAL, Site: Right Balance Wasted Residual medication less than 1 unit was discarded. Anterior Chamber Paracentesis No. Post Injection Evaluation Patient has at least hand motion vision. Post Procedure Medications None. Home Going Prescription None. Sign Out Sign out discussion completed, All instruments, equipment, and/or possible retained foreign bodies accounted for, Post-procedure follow up management communicated. No specimens. [facility] 03-23-2024 Instructions Awa Patrick MD, PhD - 03/23/2024 11:34 AM EDT Post Injection Patient Information You had eye injection(s) today. These are your after injection instructions. Today: Preservative free artificial tears 1 drop every hour while awake as needed Tomorrow: Preservative free artificial tears 1 drop every 2 hours while awake as needed Care instructions after eye injections: Do not rub or touch your eye other than dabbing lightly with a tissue An zltm-prg-pvdkfxr pain reliever (i.e. Tylenol) can be used for mild soreness Use artificial tears/lubricating drops once an hour as needed for comfort (chill the tears in the refrigerator for more comfort). If you are using the tears more than 4 times a day they need to be the preservative free kind Warm or cool compresses are okay It is okay to shower and wash your face. No swimming pools or saunas for 24 hours COMMON symptoms after successful eye injections: Mild to moderate pain or irritation beginning the day of the injection. This should begin to improve the following day. Eyelash in the eye or kellen/gritty sensation Tearing Mild floaters or bubbles in your vision - usually resolves after 1-2 days Bloody tears for 1-2 days after treatment Eye Redness Also known as subconjunctival hemorrhage This bruise can cover the entire white part of the eye and may last a few weeks CONCERNING symptoms after eye injections: Severe, constant pain Worsening pain after the first day Decreased vision Severe, constant floaters Curtain or veil in your vision New eye redness that was not there after the injection and covers the whole eye Please call the office immediately for any of the above listed concerning symptoms or with any other questions. If it is after hours please call [phone] which will give instructions on how to reach the eye doctor control board operator documented in this encounter [facility] 03-23-2024 Note Date of Procedure 03/23/2024. [employer] Tech: [email or web address]. Interpretation Right Eye Abnormal foveal contour. Findings include Intraretinal fluid, PED, CNV, Epiretinal membrane, IS/OS junction, RPE Irregularity; Negative for Subretinal fluid. Left Eye Abnormal foveal contour. Findings include CNV, IS/OS junction, RPE Irregularity; Negative for Intraretinal fluid, Subretinal fluid. [facility] 03-23-2024 History of Present illness Narrative 1. 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) Right eye, inactive left -Scar both eyes -AREDS/AG 2. Posterior chamber intraocular lens (PCIOL) both eyes Posterior capsular opacity (PCO) both eyes Plan: S/p Eylea 8 weeks ago right eye with persistent IRF Left eye stable scar, observation Eylea today right eye Keep at 8-9 weeks for sti Full exam in jul/aug I have confirmed and edited as necessary the relevant ophthalmic history, ROS, and the neuro exam findings as obtained by others. I have seen and examined this patient. I have discussed the case and the management of this patient's care with the Resident/Fellow, if applicable. I also have reviewed and agree with the assessment and plan as stated above and agree with all of its relevant components. Awa Patrick MD documented in this encounter [facility] 01-27-2024 Instructions Awa Patrick MD, PhD - 01/27/2024 11:36 AM EDT Post Injection Patient Information You had eye injection(s) today. These are your after injection instructions. Today: Preservative free artificial tears 1 drop every hour while awake as needed Tomorrow: Preservative free artificial tears 1 drop every 2 hours while awake as needed Care instructions after eye injections: Do not rub or touch your eye other than dabbing lightly with a tissue An xyha-vwf-qfwesnl pain reliever (i.e. Tylenol) can be used for mild soreness Use artificial tears/lubricating drops once an hour as needed for comfort (chill the tears in the refrigerator for more comfort). If you are using the tears more than 4 times a day they need to be the preservative free kind Warm or cool compresses are okay It is okay to shower and wash your face. No swimming pools or saunas for 24 hours COMMON symptoms after successful eye injections: Mild to moderate pain or irritation beginning the day of the injection. This should begin to improve the following day. Eyelash in the eye or kellen/gritty sensation Tearing Mild floaters or bubbles in your vision - usually resolves after 1-2 days Bloody tears for 1-2 days after treatment Eye Redness Also known as subconjunctival hemorrhage This bruise can cover the entire white part of the eye and may last a few weeks CONCERNING symptoms after eye injections: Severe, constant pain Worsening pain after the first day Decreased vision Severe, constant floaters Curtain or veil in your vision New eye redness that was not there after the injection and covers the whole eye Please call the office immediately for any of the above listed concerning symptoms or with any other questions. If it is after hours please call [phone] which will give instructions on how to reach the eye doctor control board operator documented in this encounter [facility] 01-27-2024 History of Present illness Narrative 1. 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) Right eye, inactive left -Scar both eyes -AREDS/AG 2. Posterior chamber intraocular lens (PCIOL) both eyes Posterior capsular opacity (PCO) both eyes Plan: S/p Eylea 9 weeks ago right eye with improving IRF Left eye stable scar, observation Eylea today right eye Keep at 8-9 weeks for sti Full exam in jul/aug I have confirmed and edited as necessary the relevant ophthalmic history, ROS, and the neuro exam findings as obtained by others. I have seen and examined this patient. I have discussed the case and the management of this patient's care with the Resident/Fellow, if applicable. I also have reviewed and agree with the assessment and plan as stated above and agree with all of its relevant components. Awa Patrick MD documented in this encounter [facility] 09-23-2023 Miscellaneous Notes Addended by: AWA PATRICK on: 09/23/2023 03:15 PM Modules accepted: Orders documented in this encounter [facility] 09-23-2023 Instructions Awa Patrick MD, PhD - 09/23/2023 3:07 PM EST Post Injection Patient Information You had eye injection(s) today. These are your after injection instructions. Today: Preservative free artificial tears 1 drop every hour while awake as needed Tomorrow: Preservative free artificial tears 1 drop every 2 hours while awake as needed Care instructions after eye injections: Do not rub or touch your eye other than dabbing lightly with a tissue An jaug-ale-vcvchfw pain reliever (i.e. Tylenol) can be used for mild soreness Use artificial tears/lubricating drops once an hour as needed for comfort (chill the tears in the refrigerator for more comfort). If you are using the tears more than 4 times a day they need to be the preservative free kind Warm or cool compresses are okay It is okay to shower and wash your face. No swimming pools or saunas for 24 hours COMMON symptoms after successful eye injections: Mild to moderate pain or irritation beginning the day of the injection. This should begin to improve the following day. Eyelash in the eye or kellen/gritty sensation Tearing Mild floaters or bubbles in your vision - usually resolves after 1-2 days Bloody tears for 1-2 days after treatment Eye Redness Also known as subconjunctival hemorrhage This bruise can cover the entire white part of the eye and may last a few weeks CONCERNING symptoms after eye injections: Severe, constant pain Worsening pain after the first day Decreased vision Severe, constant floaters Curtain or veil in your vision New eye redness that was not there after the injection and covers the whole eye Please call the office immediately for any of the above listed concerning symptoms or with any other questions. If it is after hours please call [phone] which will give instructions on how to reach the eye doctor control board operator documented in this encounter [facility] 09-23-2023 History of Present illness Narrative 1. 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) Right eye, inactive left -Scar both eyes -AREDS/AG 2. Posterior chamber intraocular lens (PCIOL) both eyes Posterior capsular opacity (PCO) both eyes Plan: S/p Eylea 8 weeks ago right eye with stable subretinal fluid , IRF/PED Left eye stable scar, observation Eylea today right eye Keep at 8-9 weeks for sti Full exam in February I have confirmed and edited as necessary the relevant ophthalmic history, ROS, and the neuro exam findings as obtained by others. I have seen and examined this patient. I have discussed the case and the management of this patient's care with the Resident/Fellow, if applicable. I also have reviewed and agree with the assessment and plan as stated above and agree with all of its relevant components. Awa Patrick MD documented in this encounter [facility] 08-11-2023 Miscellaneous Notes August 12, 2023 PID: [id number] Stacy Hart [address] [place] [address] Dear Ms. Hart, We are pleased to inform you that the results of your recent breast imaging exam on 08/11/2023 are normal. Early detection of cancer is very important. We also understand recommendations regarding breast cancer screening are controversial. Please discuss with your primary care provider which strategy is best for you and whether a mammogram is right for you. Your imaging studies and report will be kept on file at [facility] as part of your permanent medical record and are available for your continuing care. Thank you for allowing us to help in meeting your health care needs. Sincerely, Dr. Crawley Interpreting Radiologist [facility] (Normal over 40) documented in this encounter [facility] 08-11-2023 History of Present illness Narrative Radiology Service Progress Note PATIENT NAME: Stacy Hart DATE OF SERVICE: August 11, 2023 TIME: 10:03 AM PATIENT IDENTITY VERIFICATION COMPLETED USING TWO (2) IDENTIFIERS: Name and Date of confirmed by patient verbally. FALL SCREENING: Has the patient had 2 falls in the last year or 1 fall with injury or currently using an Ambulatory Assistive Device (Walker, Cane, Wheelchair, Crutches, etc.)? No PATIENT GENDER DATA: Female. status: : No status: NO. PATIENT RELEVANT IMPLANT DATA REVIEWED: Not Applicable RADIOLOGY DEPARTMENT: Mammography PERIPHERAL IV DATA: Not applicable SIGNED BY: Whitney Jeffries [employer] [place] August 11, 2023 10:03 AM documented in this encounter [facility] 07-29-2023 Instructions Awa Patrick MD, PhD - 07/29/2023 11:52 AM EDT Post Injection Patient Information You had eye injection(s) today. These are your after injection instructions. Today: Preservative free artificial tears 1 drop every hour while awake as needed Tomorrow: Preservative free artificial tears 1 drop every 2 hours while awake as needed Care instructions after eye injections: Do not rub or touch your eye other than dabbing lightly with a tissue An bnsl-qcx-pnuggyn pain reliever (i.e. Tylenol) can be used for mild soreness Use artificial tears/lubricating drops once an hour as needed for comfort (chill the tears in the refrigerator for more comfort). If you are using the tears more than 4 times a day they need to be the preservative free kind Warm or cool compresses are okay It is okay to shower and wash your face. No swimming pools or saunas for 24 hours COMMON symptoms after successful eye injections: Mild to moderate pain or irritation beginning the day of the injection. This should begin to improve the following day. Eyelash in the eye or kellen/gritty sensation Tearing Mild floaters or bubbles in your vision - usually resolves after 1-2 days Bloody tears for 1-2 days after treatment Eye Redness Also known as subconjunctival hemorrhage This bruise can cover the entire white part of the eye and may last a few weeks CONCERNING symptoms after eye injections: Severe, constant pain Worsening pain after the first day Decreased vision Severe, constant floaters Curtain or veil in your vision New eye redness that was not there after the injection and covers the whole eye Please call the office immediately for any of the above listed concerning symptoms or with any other questions. If it is after hours please call [phone] which will give instructions on how to reach the eye doctor control board operator documented in this encounter [facility] 07-29-2023 History of Present illness Narrative 1. 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) Right eye, inactive left -Scar both eyes -AREDS/AG 2. Posterior chamber intraocular lens (PCIOL) both eyes Posterior capsular opacity (PCO) both eyes Plan: S/p Eylea 9 weeks ago right eye with stable IRF Left eye stable scar, observation Eylea today right eye Keep at 8-9 weeks for sti Full exam in February I have confirmed and edited as necessary the relevant ophthalmic history, ROS, and the neuro exam findings as obtained by others. I have seen and examined this patient. I have discussed the case and the management of this patient's care with the Resident/Fellow, if applicable. I also have reviewed and agree with the assessment and plan as stated above and agree with all of its relevant components. Awa Patrick MD documented in this encounter [facility] 06-10-2023 Miscellaneous Notes Patient notified of u/s and CA125 result. States she has annual with DM in August and wants to discuss it a little more then before she decides if she wants surgery with MIGS or not. Delores Scruggs RN documented in this encounter [facility] 05-27-2023 Instructions Awa Patrick MD, PhD - 05/27/2023 10:31 AM EDT Post Injection Patient Information You had eye injection(s) today. These are your after injection instructions. Today: Preservative free artificial tears 1 drop every hour while awake as needed Tomorrow: Preservative free artificial tears 1 drop every 2 hours while awake as needed Care instructions after eye injections: Do not rub or touch your eye other than dabbing lightly with a tissue An uvmu-hkh-snqsxis pain reliever (i.e. Tylenol) can be used for mild soreness Use artificial tears/lubricating drops once an hour as needed for comfort (chill the tears in the refrigerator for more comfort). If you are using the tears more than 4 times a day they need to be the preservative free kind Warm or cool compresses are okay It is okay to shower and wash your face. No swimming pools or saunas for 24 hours COMMON symptoms after successful eye injections: Mild to moderate pain or irritation beginning the day of the injection. This should begin to improve the following day. Eyelash in the eye or kellen/gritty sensation Tearing Mild floaters or bubbles in your vision - usually resolves after 1-2 days Bloody tears for 1-2 days after treatment Eye Redness Also known as subconjunctival hemorrhage This bruise can cover the entire white part of the eye and may last a few weeks CONCERNING symptoms after eye injections: Severe, constant pain Worsening pain after the first day Decreased vision Severe, constant floaters Curtain or veil in your vision New eye redness that was not there after the injection and covers the whole eye Please call the office immediately for any of the above listed concerning symptoms or with any other questions. If it is after hours please call [phone] which will give instructions on how to reach the eye doctor control board operator documented in this encounter [facility] 05-27-2023 History of Present illness Narrative 1. 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) Right eye, inactive left -Scar both eyes -AREDS/AG 2. Posterior chamber intraocular lens (PCIOL) both eyes Posterior capsular opacity (PCO) both eyes Plan: S/p Eylea 9 weeks ago right eye with stable IRF Left eye stable scar, observation Eylea today right eye Keep at 8-9 weeks for full exam I have confirmed and edited as necessary the relevant ophthalmic history, ROS, and the neuro exam findings as obtained by others. I have seen and examined this patient. I have discussed the case and the management of this patient's care with the Resident/Fellow, if applicable. I also have reviewed and agree with the assessment and plan as stated above and agree with all of its relevant components. Awa Patrick MD documented in this encounter [facility] 05-10-2023 Miscellaneous Notes Pt returned call and was assisted in scheduling follow up ultrasound prior to yearly exam in August. Danielle Johnston LPN ' Left message for patient to call office. Delores Scruggs RN It will not be annual but a cyst follow up if medicare. Yes, have pelvic us and ca-125 then I will see her a few days or weeks after that to make sure all is back prior to we can review. Patient is scheduled on Aug.11 for a yearly cyst follow up not an annual as she has Medicare. Patient is asking if she needs to complete an ultrasound prior to this visit and would like to have her CA125 drawn again please advise the patient. documented in this encounter [facility] 01-21-2023 Instructions Awa Patrick MD, PhD - 01/21/2023 3:06 PM EDT Post Injection Patient Information You had eye injection(s) today. These are your after injection instructions. Today: Preservative free artificial tears 1 drop every hour while awake as needed Tomorrow: Preservative free artificial tears 1 drop every 2 hours while awake as needed Care instructions after eye injections: Do not rub or touch your eye other than dabbing lightly with a tissue An imen-sfs-ujbiigv pain reliever (i.e. Tylenol) can be used for mild soreness Use artificial tears/lubricating drops once an hour as needed for comfort (chill the tears in the refrigerator for more comfort). If you are using the tears more than 4 times a day they need to be the preservative free kind Warm or cool compresses are okay It is okay to shower and wash your face. No swimming pools or saunas for 24 hours COMMON symptoms after successful eye injections: Mild to moderate pain or irritation beginning the day of the injection. This should begin to improve the following day. Eyelash in the eye or kellen/gritty sensation Tearing Mild floaters or bubbles in your vision - usually resolves after 1-2 days Bloody tears for 1-2 days after treatment Eye Redness Also known as subconjunctival hemorrhage This bruise can cover the entire white part of the eye and may last a few weeks CONCERNING symptoms after eye injections: Severe, constant pain Worsening pain after the first day Decreased vision Severe, constant floaters Curtain or veil in your vision New eye redness that was not there after the injection and covers the whole eye Please call the office immediately for any of the above listed concerning symptoms or with any other questions. If it is after hours please call [phone] which will give instructions on how to reach the eye doctor control board operator documented in this encounter [facility] 01-21-2023 History of Present illness Narrative 1. 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) Right eye, inactive left -Scar both eyes -AREDS/AG 2. 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 I have seen and examined this patient. I have discussed the case and the management of this patient's care with the Resident/Fellow, if applicable. I also have reviewed and agree with the assessment and plan as stated above and agree with all of its relevant components. Awa Patrick MD documented in this encounter [facility] 12-10-2022 Instructions Awa Patrick MD, PhD - 12/10/2022 1:48 PM EST Post-Procedure Patient Information Injection [ ] You had an injection into the eye. [ ] You had an injection adjacent to the eye. Tearing and some redness are common after an eye injection. If the eye feels irritated, try to keep it closed; some patients find that a mild pain medicine such as acetaminophen helps. If tearing or pain persists the next day, please call. The redness may take some days to a week to resolve. If you notice increasing pain, redness or blurred vision, please call the office. Loss of central or peripheral vision should prompt a call to us. Please call if you have any questions or concerns. For Questions or an Appointment, please call: [phone] Visit us online at [email or web address]. documented in this encounter [facility] 12-10-2022 History of Present illness Narrative 1. 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) Right eye, inactive left -Scar both eyes -AREDS/AG 2. Posterior chamber intraocular lens (PCIOL) both eyes Posterior capsular opacity (PCO) both eyes Plan: S/p Eylea 7 wks ago OD Eylea right eye stable subretinal fluid /SHRM with IRF Left eye stable scar, observation Remain at 6-7 weeks for full exam I have confirmed and edited as necessary the relevant ophthalmic history, ROS, and the neuro exam findings as obtained by others. I have seen and examined this patient. I have discussed the case and the management of this patient's care with the Resident/Fellow, if applicable. I also have reviewed and agree with the assessment and plan as stated above and agree with all of its relevant components. Awa Patrick MD documented in this encounter [facility] 10-22-2022 Instructions Awa Patrick MD, PhD - 10/22/2022 2:46 PM EST Post-Injection Patient Information You had an injection into the eye today. Tearing and some redness are common after an eye injection. If the eye feels irritated, try to keep it closed; some patients find that a mild pain medicine such as acetaminophen helps. If tearing or pain persists the next day, please call. The redness may take some days to a week to resolve. If you notice increasing pain, redness or blurred vision, please call the office. Loss of central or peripheral vision should prompt a call to us. Please call if you have any questions or concerns. For Questions or an Appointment, please call: [phone] Visit us online at [email or web address]. documented in this encounter [facility] 10-22-2022 History of Present illness Narrative 1. 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) Right eye, inactive left -Scar both eyes -AREDS/AG 2. Posterior chamber intraocular lens (PCIOL) both eyes Posterior capsular opacity (PCO) both eyes Plan: S/p Eylea 7 wks ago OD Eylea right eye stable subretinal fluid /SHRM Left eye stable scar, observation Remain at 6-7 weeks for sti Full exam Mar I have confirmed and edited as necessary the relevant ophthalmic history, ROS, and the neuro exam findings as obtained by others. I have seen and examined this patient. I have discussed the case and the management of this patient's care with the Resident/Fellow, if applicable. I also have reviewed and agree with the assessment and plan as stated above and agree with all of its relevant components. Awa Patrick MD documented in this encounter [facility] 09-03-2022 Instructions Awa Patrick MD, PhD - 09/03/2022 2:29 PM EDT Post-Injection Patient Information You had an injection into the eye today. Tearing and some redness are common after an eye injection. If the eye feels irritated, try to keep it closed; some patients find that a mild pain medicine such as acetaminophen helps. If tearing or pain persists the next day, please call. The redness may take some days to a week to resolve. If you notice increasing pain, redness or blurred vision, please call the office. Loss of central or peripheral vision should prompt a call to us. Please call if you have any questions or concerns. For Questions or an Appointment, please call: [phone] Visit us online at [email or web address]. documented in this encounter [facility] 09-03-2022 History of Present illness Narrative 1. 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) Right eye, inactive left -Scar both eyes -AREDS/AG 2. Posterior chamber intraocular lens (PCIOL) both eyes Posterior capsular opacity (PCO) both eyes Plan: S/p Eylea 6 wks ago OD Eylea right eye stable subretinal fluid /SHRM Left eye stable scar, observation Remain at 6-7 weeks for sti Full exam Mar I have confirmed and edited as necessary the relevant ophthalmic history, ROS, and the neuro exam findings as obtained by others. I have seen and examined this patient. I have discussed the case and the management of this patient's care with the Resident/Fellow, if applicable. I also have reviewed and agree with the assessment and plan as stated above and agree with all of its relevant components. Awa Patrick MD documented in this encounter [facility] 08-25-2022 Miscellaneous Notes Patient given message Left message for patient to call office. Jammie Garza RN ----- Message from Sandhya Gunn MD sent at 08/25/2022 10:39 AM EDT ----- Notify patient of stable ovarian cyst- recommend yearly follow ups unless any changes before that like Pain. If she has any PMB notify office- last year EMB was benign. documented in this encounter [facility] 08-05-2022 History of Present illness Narrative Stacy is a 72 year old who presents for an annual gynecologic exam without complaints. Has no pelvic pain, changes in BM or bloating. Had consult with [facility] regarding simple cyst last year- no surgery performed. Postmenopausal: Yes HRT use: No. Last Pap: 04/04/2019 normal HPV: 02/13/2014 History of abnormal pap: No Last mammogram: 2021 normal History of abnormal mammogram: Yes, right lumpectomy Sexually active: No History of STDS: None Patient concerns for STD exposure: No. 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 History Comments: Sexual Activity: Not Currently; No partner data on record Contraception: No contraception data on record PAST MEDICAL HISTORY Diagnosis Date Breast cancer (HCC) 2012 right breast Cyst of left ovary Depression Endophthalmitis Hypothyroid Macular degeneration both eyes Osteopenia Rheumatoid arthritis PAST SURGICAL HISTORY Procedure Laterality Date ANESTH, SECTION 1981 2; vertical midline and pfann; tubal ligation BX/EXC LYMPH NODE OPEN DEEP AXILLARY NODE 04/05/2013 INTRAOP SENTINEL LYMPH NODE ID W/DYE INJECTION 04/05/2013 LAPAROSCOPY SURG CHOLECYSTECTOMY 09/11/2015 MASTECTOMY, PARTIAL Right 04/05/2013 Lumpectomy OVARIAN CYSTECTOMY UNI/BI right and left OVARIAN WEDGE RESECTION PAST SURGICAL HISTORY OF 2008 left knee replacement PREOP PLACEMENT NEEDLE LOC 04/05/2013 TONSILLECTOMY & ADENOIDECTOMY <AGE 10 XCAPSL CTRC RMVL INSJ IO LENS PROSTH W/O ECP Left 10/24/2015 Cataract Extraction with PC IOL/Femto/Toric XCAPSL CTRC RMVL INSJ IO LENS PROSTH W/O ECP Right 12/11/2015 Cataract Extraction with PC IOL/Femto/LRI FAMILY HISTORY Problem Relation Age of Onset Emphysema Father Colon Cancer Father Alcohol/Drug Father w/ cirrhosis No Ocular Disease Father Stroke Mother No Ocular Disease Mother Colon Cancer Paternal Grandmother Arthritis Paternal Grandmother Colon Cancer Paternal Aunt Breast Cancer Maternal Aunt Arthritis Other cousin RA Blood Disease Maternal Aunt leukemia SOCIAL HISTORY Social History Tobacco Use Smoking status: Former Years: 2.00 Types: Cigarettes Quit date: 03/17/1973 Years since quittin.4 Smokeless tobacco: Never Tobacco comments: Pt smoked 2-3 cigarettes once a week for 2 years. Vaping Use Vaping Use: Never used Substance Use Topics Alcohol use: Yes Alcohol/week: 2.5 standard drinks Types: 1 Cans of Beer (12oz) per week Comment: very rarely Drug use: No REVIEW OF SYSTEMS Abdomen: No abdominal pain, nausea, vomiting, diarrhea, or constipation. No bloating, early satiety, indigestion, or increased flatulence. Bladder: no dysuria. Sometimes USI Breast: No breast lumps, nipple d/c, overlying skin changes, redness or skin retraction Allergies and current medication updated:Yes EXAM: BP 132/82 Wt 198 lb (89.8kg) GENERAL: pleasant, female in no apparent distress HEENT: Normocephalic, atraumatic, mucus membranes moist, and no lesions NECK: Supple, full range of motion, no adenopathy, and thyroid normal DERMATOLOGY: Normal, without lesions, non-icteric, and non-hirsute BREAST: soft, non-tender, symmetric, no dominant mass, normal nipple-areolar complex, no lymphadenopathy, no nipple discharge, and well healed lumpectomy site on right ABDOMEN: soft, non-tender, no masses, and well healed midline vertical and Pfannenstiel PELVIC: external genitalia normal, normal Bartholin's glands, urethra, Toppenish's glands, no vulvar lesions, no cervical lesions, good vaginal support, physiologic discharge present, normal appearing perineal body and perianal region BIMANUAL: non-tender and difficult to palpate due to habitus RECTOVAGINAL: deferred. NEURO: alert and oriented x3,exam grossly non-focal EXTREMITIES: normal ASSESSMENT/PLAN: 1) Health maintenance: Pap/HPV screening no longer needed Mammogram ordered Mammogram up to date Nutrition, exercise and routine health maintenance exams reviewed. Calcium/Vitamin D supplementation information provided. 2) Follow up one year or sooner as needed 3) CA125 ordered pelvic us ordered. Discussed if pain, N/V, bloating would recommend surgical intervention. Discussed change of malignancy low but can't be certain without pathology from specimen however Pt is poor surgical candidate Sandhya Alcazar MD Gas Tester offered: Patient declines. documented in this encounter [facility] 2022 Instructions Awa Patrick MD, PhD - 2022 4:20 PM EDT Post-Injection Patient Information You had an injection into the eye today. Tearing and some redness are common after an eye injection. If the eye feels irritated, try to keep it closed; some patients find that a mild pain medicine such as acetaminophen helps. If tearing or pain persists the next day, please call. The redness may take some days to a week to resolve. If you notice increasing pain, redness or blurred vision, please call the office. Loss of central or peripheral vision should prompt a call to us. Please call if you have any questions or concerns. For Questions or an Appointment, please call: [phone] Visit us online at [email or web address]. documented in this encounter [facility] 2022 History of Present illness Narrative 1. 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) Right eye, inactive left -Scar both eyes -AREDS/AG 2. Posterior chamber intraocular lens (PCIOL) both eyes Posterior capsular opacity (PCO) both eyes Plan: S/p Eylea 6 wks ago OD Eylea right eye stable subretinal fluid /SHRM Left eye stable scar, observation Remain at 6-7 weeks for sti Full exam Mar I have confirmed and edited as necessary the relevant ophthalmic history, ROS, and the neuro exam findings as obtained by others. I have seen and examined this patient. I have discussed the case and the management of this patient's care with the Resident/Fellow, if applicable. I also have reviewed and agree with the assessment and plan as stated above and agree with all of its relevant components. Awa Patrick MD documented in this encounter [facility] 07-12-2022 Miscellaneous Notes July 12, 2022 PID: [id number] Stacy Hart [address] [place] [address] Dear Ms. Hart, We are pleased to inform you that the results of your recent breast imaging exam on 07/10/2022 are normal. Early detection of cancer is very important. We also understand recommendations regarding breast cancer screening are controversial. Please discuss with your primary care provider which strategy is best for you and whether a mammogram is right for you. Your imaging studies and report will be kept on file at [facility] as part of your permanent medical record and are available for your continuing care. Thank you for allowing us to help in meeting your health care needs. Sincerely, Dr. Meadows Interpreting Radiologist [facility] (Normal over 40) documented in this encounter [facility] 07-10-2022 History of Present illness Narrative Radiology Service Progress Note PATIENT NAME: Stacy Hart DATE OF SERVICE: July 10, 2022 TIME: 1:50 PM PATIENT IDENTITY VERIFICATION COMPLETED USING TWO (2) IDENTIFIERS: Name and Date of confirmed by patient verbally. FALL SCREENING: Has the patient had 2 falls in the last year or 1 fall with injury or currently using an Ambulatory Assistive Device (Walker, Cane, Wheelchair, Crutches, etc.)? No PATIENT GENDER DATA: Female. status: : No status: NO. PATIENT RELEVANT IMPLANT DATA REVIEWED: Not Applicable RADIOLOGY DEPARTMENT: Mammography PERIPHERAL IV DATA: Not applicable SIGNED BY: RT Patricia(R) July 10, 2022 1:50 PM documented in this encounter [facility] 06-11-2022 History of Present illness Narrative 1. 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) Right eye, inactive left -Scar both eyes -AREDS/AG 2. Posterior chamber intraocular lens (PCIOL) both eyes Posterior capsular opacity (PCO) both eyes Plan: S/p Eylea 8 wks ago OD Eylea right eye stable subretinal fluid /SHRM Left eye stable scar, observation Remain at 6-7 weeks for full exam and sasha I have confirmed and edited as necessary the relevant ophthalmic history, ROS, and the neuro exam findings as obtained by others. I have seen and examined this patient. I have discussed the case and the management of this patient's care with the Resident/Fellow, if applicable. I also have reviewed and agree with the assessment and plan as stated above and agree with all of its relevant components. Awa Patrick MD documented in this encounter [facility] 04-23-2022 Instructions Awa Patrick MD, PhD - 04/23/2022 3:44 PM EDT Post-Injection Patient Information You had an injection into the eye today. Tearing and some redness are common after an eye injection. If the eye feels irritated, try to keep it closed; some patients find that a mild pain medicine such as acetaminophen helps. If tearing or pain persists the next day, please call. The redness may take some days to a week to resolve. If you notice increasing pain, redness or blurred vision, please call the office. Loss of central or peripheral vision should prompt a call to us. Please call if you have any questions or concerns. For Questions or an Appointment, please call: [phone] Visit us online at [email or web address]. documented in this encounter [facility] 04-23-2022 History of Present illness Narrative 1. 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) Right eye, inactive left -Scar both eyes -AREDS/AG 2. Posterior chamber intraocular lens (PCIOL) both eyes Posterior capsular opacity (PCO) both eyes Plan: S/p Eylea 8 wks ago OD Eylea right eye stable subretinal fluid /SHRM Left eye stable scar, observation Decreased it 6-7 wks STI right eye but get OCT both Full exam Sept I have confirmed and edited as necessary the relevant ophthalmic history, ROS, and the neuro exam findings as obtained by others. I have seen and examined this patient. I have discussed the case and the management of this patient's care with the Resident/Fellow, if applicable. I also have reviewed and agree with the assessment and plan as stated above and agree with all of its relevant components. Awa Patrick MD documented in this encounter [facility] 02-26-2022 Instructions Awa Patrick MD, PhD - 02/26/2022 11:45 AM EDT Post-Injection Patient Information You had an injection into the eye today. Tearing and some redness are common after an eye injection. If the eye feels irritated, try to keep it closed; some patients find that a mild pain medicine such as acetaminophen helps. If tearing or pain persists the next day, please call. The redness may take some days to a week to resolve. If you notice increasing pain, redness or blurred vision, please call the office. Loss of central or peripheral vision should prompt a call to us. Please call if you have any questions or concerns. For Questions or an Appointment, please call: [phone] Visit us online at [email or web address]. documented in this encounter [facility] 02-26-2022 History of Present illness Narrative 1. 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) Right eye, inactive left -Scar both eyes -AREDS/AG 2. Posterior chamber intraocular lens (PCIOL) both eyes Posterior capsular opacity (PCO) both eyes Plan: S/p Eylea 7 wks ago Eylea right eye stable subretinal fluid /SHRM Left eye stable scar, observation Keep at 7-8 wks STI right eye but get OCT both Full exam Sept I have confirmed and edited as necessary the relevant ophthalmic history, ROS, and the neuro exam findings as obtained by others. I have seen and examined this patient. I have discussed the case and the management of this patient's care with the Resident/Fellow, if applicable. I also have reviewed and agree with the assessment and plan as stated above and agree with all of its relevant components. Awa Patrick MD documented in this encounter [facility] 12-17-2015 History of Past i llness Narrative Problem Noted Date Resolved Date Combined form of senile cataract 12/17/2015 12/26/2015 Pseudophakia of right eye 12/12/20152015 Regular astigmatism 12/03/2015 12/26/2015 Combined form of senile cataract of both eyes 12/12/2015 Cataract, nuclear sclerotic senile 09/27/2015 12/12/2015 Macular degeneration 09/06/2015 11/12/2016 Pain in limb 12/26/2010 02/12/2014 Knee joint replacement 11/28/2009 4 Acquired valgus deformity knee 10/01/2009 0 02/12/2014 documented as of this encounter (statuses as of 02/26/2022) [facility] History of Past illness Narrative* Problem Noted Date Resolved Date Combined form of senile cataract 12/17/2015 12/26/2015 Pseudophakia of right eye 12/12/20152015 Regular astigmatism 12/03/2015 12/26/2015 Combined form of senile cataract of both eyes 12/12/2015 Cataract, nuclear sclerotic senile 09/27/2015 12/12/2015 Macular degeneration 09/06/2015 11/12/2016 Pain in limb 12/26/2010 02/12/2014 Knee joint replacement 11/28/2009 4 Acquired valgus deformity knee 10/01/2009 0 02/12/2014 documented as of this encounter (statuses as of 04/23/2022) [facility] History of Past illness Narrative* Problem Noted Date Resolved Date Combined form of senile cataract 12/17/2015 12/26/2015 Pseudophakia of right eye 12/12/20152015 Regular astigmatism 12/03/2015 12/26/2015 Combined form of senile cataract of both eyes 12/12/2015 Cataract, nuclear sclerotic senile 09/27/2015 12/12/2015 Macular degeneration 09/06/2015 11/12/2016 Pain in limb 12/26/2010 02/12/2014 Knee joint replacement 11/28/2009 4 Acquired valgus deformity knee 10/01/2009 0 02/12/2014 documented as of this encounter (statuses as of 06/11/2022) [facility] History of Past illness Narrative* Problem Noted Date Resolved Date Combined form of senile cataract 12/17/2015 12/26/2015 Pseudophakia of right eye 12/12/20152015 Regular astigmatism 12/03/2015 12/26/2015 Combined form of senile cataract of both eyes 12/12/2015 Cataract, nuclear sclerotic senile 09/27/2015 12/12/2015 Macular degeneration 09/06/2015 11/12/2016 Pain in limb 12/26/2010 02/12/2014 Knee joint replacement 11/28/2009 4 Acquired valgus deformity knee 10/01/2009 0 02/12/2014 documented as of this encounter (statuses as of 07/11/2022) [facility] History of Past illness Narrative* Problem Noted Date Resolved Date Combined form of senile cataract 12/17/2015 12/26/2015 Pseudophakia of right eye 12/12/20152015 Regular astigmatism 12/03/2015 12/26/2015 Combined form of senile cataract of both eyes 12/12/2015 Cataract, nuclear sclerotic senile 09/27/2015 12/12/2015 Macular degeneration 09/06/2015 11/12/2016 Pain in limb 12/26/2010 02/12/2014 Knee joint replacement 11/28/2009 4 Acquired valgus deformity knee 10/01/2009 0 02/12/2014 documented as of this encounter (statuses as of 07/14/2022) [facility] of Past illness Narrative* Problem Noted Date Resolved Date Combined form of senile cataract 12/17/2015 12/26/2015 Pseudophakia of right eye 12/12/20152015 Regular astigmatism 12/03/2015 12/26/2015 Combined form of senile cataract of both eyes 12/12/2015 Cataract, nuclear sclerotic senile 09/27/2015 12/12/2015 Macular degeneration 09/06/2015 11/12/2016 Pain in limb 12/26/2010 02/12/2014 Knee joint replacement 11/28/2009 4 Acquired valgus deformity knee 10/01/2009 0 02/12/2014 documented as of this encounter (statuses as of 2022) [facility] History of Past illness Narrative* Problem Noted Date Resolved Date Combined form of senile cataract 12/17/2015 12/26/2015 Pseudophakia of right eye 12/12/20152015 Regular astigmatism 12/03/2015 12/26/2015 Combined form of senile cataract of both eyes 12/12/2015 Cataract, nuclear sclerotic senile 09/27/2015 12/12/2015 Macular degeneration 09/06/2015 11/12/2016 Pain in limb 12/26/2010 02/12/2014 Knee joint replacement 11/28/2009 4 Acquired valgus deformity knee 10/01/2009 0 02/12/2014 documented as of this encounter (statuses as of 08/05/2022) [facility] of Past illness Narrative* Problem Noted Date Resolved Date Combined form of senile cataract 12/17/2015 12/26/2015 Pseudophakia of right eye 12/12/20152015 Regular astigmatism 12/03/2015 12/26/2015 Combined form of senile cataract of both eyes 12/12/2015 Cataract, nuclear sclerotic senile 09/27/2015 12/12/2015 Macular degeneration 09/06/2015 11/12/2016 Pain in limb 12/26/2010 02/12/2014 Knee joint replacement 11/28/2009 4 Acquired valgus deformity knee 10/01/2009 0 02/12/2014 documented as of this encounter (statuses as of 08/23/2022) [facility] of Past illness Narrative* Problem Noted Date Resolved Date Combined form of senile cataract 12/17/2015 12/26/2015 Pseudophakia of right eye 12/12/20152015 Regular astigmatism 12/03/2015 12/26/2015 Combined form of senile cataract of both eyes 12/12/2015 Cataract, nuclear sclerotic senile 09/27/2015 12/12/2015 Macular degeneration 09/06/2015 11/12/2016 Pain in limb 12/26/2010 02/12/2014 Knee joint replacement 11/28/2009 4 Acquired valgus deformity knee 10/01/2009 0 02/12/2014 documented as of this encounter (statuses as of 08/25/2022) [facility] of Past illness Narrative* Problem Noted Date Resolved Date Combined form of senile cataract 12/17/2015 12/26/2015 Pseudophakia of right eye 12/12/20152015 Regular astigmatism 12/03/2015 12/26/2015 Combined form of senile cataract of both eyes 12/12/2015 Cataract, nuclear sclerotic senile 09/27/2015 12/12/2015 Macular degeneration 09/06/2015 11/12/2016 Pain in limb 12/26/2010 02/12/2014 Knee joint replacement 11/28/2009 4 Acquired valgus deformity knee 10/01/2009 0 02/12/2014 documented as of this encounter (statuses as of 09/03/2022) [facility] of Past illness Narrative* Problem Noted Date Resolved Date Combined form of senile cataract 12/17/2015 12/26/2015 Pseudophakia of right eye 12/12/20152015 Regular astigmatism 12/03/2015 12/26/2015 Combined form of senile cataract of both eyes 12/12/2015 Cataract, nuclear sclerotic senile 09/27/2015 12/12/2015 Macular degeneration 09/06/2015 11/12/2016 Pain in limb 12/26/2010 02/12/2014 Knee joint replacement 11/28/2009 4 Acquired valgus deformity knee 10/01/2009 0 02/12/2014 documented as of this encounter (statuses as of 10/22/2022) [facility] of Past illness Narrative* Problem Noted Date Resolved Date Combined form of senile cataract 12/17/2015 12/26/2015 Pseudophakia of right eye 12/12/20152015 Regular astigmatism 12/03/2015 12/26/2015 Combined form of senile cataract of both eyes 12/12/2015 Cataract, nuclear sclerotic senile 09/27/2015 12/12/2015 Macular degeneration 09/06/2015 11/12/2016 Pain in limb 12/26/2010 02/12/2014 Knee joint replacement 11/28/2009 4 Acquired valgus deformity knee 10/01/2009 0 02/12/2014 documented as of this encounter (statuses as of 12/10/2022) [facility] of Past illness Narrative* Problem Noted Date Resolved Date Combined form of senile cataract 12/17/2015 12/26/2015 Pseudophakia of right eye 12/12/20152015 Regular astigmatism 12/03/2015 12/26/2015 Combined form of senile cataract of both eyes 12/12/2015 Cataract, nuclear sclerotic senile 09/27/2015 12/12/2015 Macular degeneration 09/06/2015 11/12/2016 Pain in limb 12/26/2010 02/12/2014 Knee joint replacement 11/28/2009 4 Acquired valgus deformity knee 10/01/2009 0 02/12/2014 documented as of this encounter (statuses as of 01/21/2023) [facility] of Past illness Narrative* Problem Noted Date Resolved Date Combined form of senile cataract 12/17/2015 12/26/2015 Pseudophakia of right eye 12/12/20152015 Regular astigmatism 12/03/2015 12/26/2015 Combined form of senile cataract of both eyes 12/12/2015 Cataract, nuclear sclerotic senile 09/27/2015 12/12/2015 Macular degeneration 09/06/2015 11/12/2016 Pain in limb 12/26/2010 02/12/2014 Knee joint replacement 11/28/2009 4 Acquired valgus deformity knee 10/01/2009 0 02/12/2014 documented as of this encounter (statuses as of 05/10/2023) [facility] History of Past illness Narrative* Problem Noted Date Diagnosed Date Resolved Date Combined form of senile cataract 12/17/2015 12/26/2015 Pseudophakia of right eye 12/12/2015 Regular astigmatism 12/03/2015 12/26/19 16 Combined form of senile cataract of both eyes 12/02/19 16 12/12/2015 Cataract, nuclear sclerotic senile 09/27/2015 12/12/2015 Macular degeneration 09/06/201505/ 017 Pain in limb 12/26/2010 02/12/2014 Knee joint replacement 11/28/200902/12 Acquired valgus deformity knee 10/01/2009 02/12/2014 documented as of this encounter (statuses as of 05/27/2023) [facility] of Past illness Narrative* Problem Noted Date Diagnosed Date Resolved Date Combined form of senile cataract 12/17/2015 12/26/2015 Pseudophakia of right eye 12/12/2015 Regular astigmatism 12/03/2015 12/26/19 16 Combined form of senile cataract of both eyes 12/02/19 16 12/12/2015 Cataract, nuclear sclerotic senile 09/27/2015 12/12/2015 Macular degeneration 09/06/201505/2 017 Pain in limb 12/26/2010 02/12/2014 Knee joint replacement 11/28/200902/12 Acquired valgus deformity knee 10/01/2009 02/12/2014 documented as of this encounter (statuses as of 06/10/2023) [facility] History of Past illness Narrative* Problem Noted Date Diagnosed Date Resolved Date Combined form of senile cataract 12/17/2015 12/26/2015 Pseudophakia of right eye 12/12/2015 Regular astigmatism 12/03/2015 12/26/19 16 Combined form of senile cataract of both eyes 12/02/19 16 12/12/2015 Cataract, nuclear sclerotic senile 09/27/2015 12/12/2015 Macular degeneration 09/06/201505/ 017 Pain in limb 12/26/2010 02/12/2014 Knee joint replacement 11/28/200902/12 Acquired valgus deformity knee 10/01/2009 02/12/2014 documented as of this encounter (statuses as of 07/30/2023) [facility] History of Past illness Narrative* Problem Noted Date Diagnosed Date Resolved Date Combined form of senile cataract 12/17/2015 12/26/2015 Pseudophakia of right eye 12/12/2015 Regular astigmatism 12/03/2015 12/26/19 16 Combined form of senile cataract of both eyes 12/02/19 16 12/12/2015 Cataract, nuclear sclerotic senile 09/27/2015 12/12/2015 Macular degeneration 09/06/201505/ 017 Pain in limb 12/26/2010 02/12/2014 Knee joint replacement 11/28/200902/12 Acquired valgus deformity knee 10/01/2009 02/12/2014 documented as of this encounter (statuses as of 08/14/2023) [facility] History of Past illness Narrative* Problem Noted Date Diagnosed Date Resolved Date Combined form of senile cataract 12/17/2015 12/26/2015 Pseudophakia of right eye 12/12/2015 Regular astigmatism 12/03/2015 12/26/19 16 Combined form of senile cataract of both eyes 12/02/19 16 12/12/2015 Cataract, nuclear sclerotic senile 09/27/2015 12/12/2015 Macular degeneration 09/06/201505/2 017 Pain in limb 12/26/2010 02/12/2014 Knee joint replacement 11/28/200902/12 Acquired valgus deformity knee 10/01/2009 02/12/2014 documented as of this encounter (statuses as of 09/10/2023) [facility] History of Past illness Narrative* Problem Noted Date Diagnosed Date Resolved Date Combined form of senile cataract 12/17/2015 12/26/2015 Pseudophakia of right eye 12/12/2015 Regular astigmatism 12/03/2015 12/26/19 16 Combined form of senile cataract of both eyes 12/02/19 16 12/12/2015 Cataract, nuclear sclerotic senile 09/27/2015 12/12/2015 Macular degeneration 09/06/2015 017 Pain in limb 12/26/2010 02/12/2014 Knee joint replacement 11/28/200902/12 Acquired valgus deformity knee 10/01/2009 02/12/2014 documented as of this encounter (statuses as of 09/23/2023) [facility] History of Past illness Narrative* Problem Noted Date Diagnosed Date Resolved Date Combined form of senile cataract 12/17/2015 12/26/2015 Pseudophakia of right eye 12/12/2015 Regular astigmatism 12/03/2015 12/26/19 16 Combined form of senile cataract of both eyes 12/02/19 16 12/12/2015 Cataract, nuclear sclerotic senile 09/27/2015 12/12/2015 Macular degeneration 09/06/201505 017 Pain in limb 12/26/2010 02/12/2014 Knee joint replacement 11/28/200902/12 Acquired valgus deformity knee 10/01/2009 02/12/2014 documented as of this encounter (statuses as of 01/27/2024) [facility] noteNo assessment information availableWMercer [facility] Work Phone: Evaluation note* Diagnosis 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) [facility] Diagnosis 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) [facility] 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) [facility] Diagnosis 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) [facility] Diagnosis Encounter for gynecological examination (general) (routine) without abnormal findings- Primary Encounter for screening mammogram for malignant neoplasm of breast Other screening mammogram Ovarian cyst, left Other and unspecified ovarian cyst Left lower quadrant abdominal swelling, mass and lump [facility] Cyst of ovary, unspecified laterality- Primary [facility] Diagnosis 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)- Primary [facility] Diagnosis 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) [facility] Diagnosis 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) [facility] Diagnosis 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) [facility] Diagnosis Cyst of ovary, unspecified laterality- Primary Other intra-abdominal and pelvic swelling, mass and lump [facility] Diagnosis 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) [facility] Diagnosis 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) [facility] Diagnosis Encounter for screening mammogram for malignant neoplasm of breast Other screening mammogram [facility] Diagnosis 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) [facility] Diagnosis 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 macular 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)- Primary 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 macular degeneration of left eye with inactive scar (HCC) [facility] Diagnosis 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 (HCC) [facility] Diagnosis Cyst of left ovary- Primary Other and unspecified ovarian cyst Left lower quadrant abdominal swelling, mass and lump [facility] Diagnosis 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 (HCC) 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) [facility] Diagnosis 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 (HCC) [facility] Diagnosis Cyst of left ovary- Primary Other and unspecified ovarian cyst Left lower quadrant abdominal swelling, mass and lump [facility] Diagnosis Encounter for screening mammogram for malignant neoplasm of breast Other screening mammogram [facility] Diagnosis Cyst of left ovary Other and unspecified ovarian cyst [facility] Diagnosis Cyst of left ovary- Primary Other and unspecified ovarian cyst [facility] Diagnosis Cyst of left ovary- Primary Other and unspecified ovarian cyst Encounter for screening mammogram for breast cancer 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 [facility] Diagnosis 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 (HCC) [facility] Diagnosis 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 (HCC) [facility] Diagnosis 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 (HCC) [facility] Diagnosis 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 (HCC) documented in this encounter [facility] for referral (narrative)* Diagnostic Procedure Only (Routine) - Authorized Specialty Diagnoses / Procedures Referred By Contac t Referred To Contact [facility] Diagnoses Ovarian cyst, left Procedures PELVIC US WHI US PELVIC NONOBSTETRIC REAL-TIME IMAGE COMPLETE Sandhya Puente MD [address] [place] [address] [facility] [address] [place] [address] Referral ID Status Reason Start Date Expiration Date Visits Requested Visits Authorized [id number] Authorized Auto-Generat ed Referral 08/05/2022 08/05/2023 1 1 * Diagnostic Procedure Only (Routine) - Authorized Specialty Diagnoses / Procedures Referred By Contac t Referred To Contact [facility] Diagnoses Encounter for screening mammogram for malignant neoplasm of breast Procedures MARGO SCREENING W EMANUEL SCREENING DIGITAL BREAST TOMOSYNTHESIS BI SCREENING MAMMOGRAPHY BI 2-VIEW BREAST INC CAD Sandhya Puente MD [address] [place] [address] [facility] [address] [place] [address] Referral ID Status Reason Start Date Expiration Date Visits Requested Visits Authorized [id number] Authorized Auto-Generat ed Referral 08/05/2022 09/04/2023 1 1 [facility] for referral (narrative)* Diagnostic Procedure Only (Routine) - Authorized Specialty Diagnoses / Procedures Referred By Contac t Referred To Contact [facility] Diagnoses Cyst of ovary, unspecified laterality Procedures PELVIC US WHI US PELVIC NONOBSTETRIC REAL-TIME IMAGE COMPLETE Sandhya Puente MD [address] [place] [address] [facility] [address] [place] [address] Referral ID Status Reason Start Date Expiration Date Visits Requested Visits Authorized [id number] Authorized Auto-Generat ed Referral 05/10/2023 05/09/2024 1 1 T [facility] for referral (narrative)* Diagnostic Procedure Only (Routine) - Closed Specialty Diagnoses / Procedures Referred By Hannahac t Referred To Contact [facility] Diagnoses Encounter for screening mammogram for malignant neoplasm of breast Procedures MARGO SCREENING W EMANUEL SCREENING DIGITAL BREAST TOMOSYNTHESIS BI SCREENING MAMMOGRAPHY BI 2-VIEW BREAST INC CAD Sandhya Puente MD [address] [address] [facility] [address] [place] [phone] Referral ID Status Reason Start Date Expiration Date V isits Requested Visits Authorized [id number] Closed Auto-Generate d Referral 08/05/2022 09/04/2023 1 1 [facility] for referral (narrative)* Diagnostic Procedure Only (Routine) - Authorized Specialty Diagnoses / Procedures Referred By Leon t Referred To Contact [facility] Diagnoses Cyst of left ovary Procedures PELVIC US WHI US PELVIC NONOBSTETRIC REAL-TIME IMAGE COMPLETE Sandhya Puente MD [address] [place] [address] [facility] [address] [place] [id number] Referral ID Status Reason Start Date Expiration Date Visits Requested Visits Authorized [id number] Authorized Auto-Generat ed Referral 05/24/2024 05/24/2025 [address] [facility] for referral (narrative)* Diagnostic Procedure Only (Routine) - New Request Specialty Diagnoses / Procedures Referred By Leon t Referred To Contact [facility] Diagnoses Cyst of left ovary Procedures PELVIC US WHI US PELVIC NONOBSTETRIC REAL-TIME IMAGE COMPLETE Sandhya Puente MD [address] [place] [address] [facility] [address] [place] [address] Referral ID Status Reason Start Date Expiration Date Visits Requested Visits Authorized [id number] New Request Auto-Generat ed Referral 09/04/2025 1 1 [facility] for referral (narrative)* Diagnostic Procedure Only (Routine) - Authorized Specialty Diagnoses / Procedures Referred By Leon t Referred To Contact [facility] Diagnoses Cyst of left ovary Procedures PELVIC US I US PELVIC NONOBSTETRIC REAL-TIME IMAGE COMPLETE Rocío Spencer APRN.CNP [address] [place] [address] [facility] [address] [place] [address] Referral ID Status Reason Start Date Expiration Date Visits Requested Visits Authorized [id number] Authorized Auto-Generat ed Referral 06/09/2025 09/07/2025 1 1 * Diagnostic Procedure Only (Routine) - Authorized Specialty Diagnoses / Procedures Referred By Leon brooks Referred To Contact [facility] Diagnoses Encounter for screening mammogram for breast cancer Procedures MARGO SCREENING W EMANUEL SCREENING DIGITAL BREAST TOMOSYNTHESIS BI SCREENING MAMMOGRAPHY BI 2-VIEW BREAST INC CAD Rocío Spencer APRN.CNP [address] [place] [address] [facility] [address] [place] [address] Referral ID Status Reason Start Date Expiration Date Visits Requested Visits Authorized [id number] Authorized Auto-Generat ed Referral 10/07/2025 1 1 [facility] for visit Narrative* Diagnostic Procedure Only (Routine) - Closed Specialty Diagnoses / Procedures Referred By Leon brooks Referred To Contact [facility] Diagnoses Encounter for screening mammogram for malignant neoplasm of breast Procedures MARGO SCREENING W EMANUEL SCREENING DIGITAL BREAST TOMOSYNTHESIS BI SCREENING MAMMOGRAPHY BI 2-VIEW BREAST INC CAD Sandhya Puente MD [address] [place] [address] [facility] [address] [place] [address] Referral ID Status Reason Start Date Expiration Date V isits Requested Visits Authorized [id number] Closed Auto-Generate d Referral 08/05/2022 09/04/2023 1 1 [facility] for visit Narrative* Diagnostic Procedure Only (Routine) - Closed Specialty Diagnoses / Procedures Referred By Leon brooks Referred To Contact [facility] Diagnoses Encounter for screening mammogram for malignant neoplasm of breast Procedures MARGO SCREENING W EMANUEL SCREENING DIGITAL BREAST TOMOSYNTHESIS BI SCREENING MAMMOGRAPHY BI 2-VIEW BREAST INC CAD Sandhya Puente MD [address] [place] [address] [facility] [address] [place] [address] Referral ID Status Reason Start Date Expiration Date V isits Requested Visits Authorized [id number] Closed Auto-Generate d Referral 08/11/2023 09/09/2024 1 1 [facility] for visit Narrative* Diagnostic Procedure Only (Routine) - Closed Specialty Diagnoses / Procedures Referred By Leon brooks Referred To Contact [facility] Diagnoses Cyst of left ovary Procedures PELVIC US I US PELVIC NONOBSTETRIC REAL-TIME IMAGE COMPLETE Sandhya Puente MD [address] [place] [address] [facility] [address] [place] [address] Referral ID Status Reason Start Date Expiration Date V isits Requested Visits Authorized [id number] Closed Auto-Generate d Referral 05/24/2024 05/24/2025 1 1 [facility] Chief Complaint and Reason for Visit Chief Complaint LABS FROM KARINA BOWMAN Advance Directives No Advanced Directives Records Found Advance Directive Response Recorded Date/ Time Living Will No March 08, 2021 2: 23pm Power of Machine Turner No March 08, 2021 2:23pm Documents on File Type Date Recorded Patient Distribution Spec Expl anation Advance Directive(s) 04/20/2017 1:24 PM Advance Directive Response Recorded Date/ Time Living Will No March 08, 2021 1: 23pm Power of Machine Turner No March 08, 2021 1:23pm Medications Administered Section Inactive Administered Medications - up to 3 most recent administrations Medication Order MAR Action Action Date Dose Rate Site aflibercept intravitreal injection 2 mg/0.05 mL (EYLEA) 2 mg, ONE TIME INJECTION, 1 dose, Starting on Mel 02/26/22 at 1145, Until Mel 02/26/22 at 1145 Given 02/26/2022 11:45 AM EDT 2 mg Right Inactive Administered Medications - up to 3 most recent administrations Medication Order MAR Action Action Date Dose Rate Site aflibercept intravitreal injection 2 mg/0.05 mL (EYLEA) 2 mg, ONE TIME INJECTION, 1 dose, Starting on Wed04/23/22 at 1543, Until Wed04/23/22 at 1543 Given 04/23/2022 3:43 PM EDT 2 mg Right Inactive Administered Medications - up to 3 most recent administrations Medication Order MAR Action Action Date Dose Rate Site aflibercept intravitreal injection 2 mg/0.05 mL (EYLEA) 2 mg, ONE TIME INJECTION, 1 dose, Starting on Wed06/11/22 at 1116, Until Mel 06/11/22 at 1116 Given 06/11/2022 11:16 AM EDT 2 mg Right Active Administered Medications - up to 3 most recent administrations Medication Order MAR Action Action Date Dose Rate Site PHENYLephrine 2.5 % 1 Drop (AK-DILATE, PAVAN-SYNEPHRINE) 1 Drop, BOTH EYES, DIRECTED, Starting on Wed07/23/22 at 1504, Until Wed07/24/22 at 0303, Administer for dilation PROTECT FROM LIGHT, [facility] MED ORDERS Given 2022 3:08 PM EDT 1 Drop proparacaine 0.5 % 1 Drop (ALCAINE) 1 Drop, BOTH EYES, DIRECTED, Starting on Wed07/23/22 at 1504, Until Wed07/24/22 at 0303, Administer for pneumo tonometry, tonopen tonometry, or pachymetry. In the event of a proparacaine shortage, administer 1 drop of tetracaine 0.5% ophthalmic drops into both eyes as directed for pneumo tonometry, tonopen tonometry, or pachymetry, [facility] MED ORDERS Given 2022 3:08 PM EDT 1 Drop tropicamide 1 % 1 Drop (MYDRIACYL) 1 Drop, BOTH EYES, DIRECTED, Starting on Wed07/23/22 at 1504, Until Wed07/24/22 at 0303, Administer for dilation, [facility] MED ORDERS Given 2022 3:08 PM EDT 1 Drop Inactive Administered Medications - up to 3 most recent administrations Medication Order MAR Action Action Date Dose Rate Site aflibercept intravitreal injection 2 mg/0.05 mL (EYLEA) 2 mg, ONE TIME INJECTION, 1 dose, Starting on Mel 07/23/22 at 1621, Until Wed07/23/22 at 1621 Given 2022 4:21 PM EDT 2 mg Right Inactive Administered Medications - up to 3 most recent administrations Medication Order MAR Action Action Date Dose Rate Site aflibercept intravitreal injection 2 mg/0.05 mL (EYLEA) 2 mg, ONE TIME INJECTION, 1 dose, Starting on Mel 09/03/22 at 1418, Until Mel 09/03/22 at 1418 Given 09/03/2022 2:18 PM EDT 2 mg Right Inactive Administered Medications - up to 3 most recent administrations Medication Order MAR Action Action Date Dose Rate Site aflibercept intravitreal injection 2 mg/0.05 mL (EYLEA) 2 mg, ONE TIME INJECTION, 1 dose, Starting on Mel 10/22/22 at 1432, Until Mel 10/22/22 at 1432 Given 10/22/2022 2:32 PM EST 2 mg Right Inactive Administered Medications - up to 3 most recent administrations Medication Order MAR Action Action Date Dose Rate Site aflibercept intravitreal injection 2 mg/0.05 mL (EYLEA) 2 mg, ONE TIME INJECTION, 1 dose, Starting on Mel 12/10/22 at 1348, Until Mel 12/10/22 at 1348 Given 12/10/2022 1:48 PM EST 2 mg Right Inactive Administered Medications - up to 3 most recent administrations Medication Order MAR Action Action Date Dose Rate Site aflibercept intravitreal injection 2 mg/0.05 mL (EYLEA) 2 mg, ONE TIME INJECTION, 1 dose, Starting on Mel 01/21/23 at 1506, Until Mel 01/21/23 at 1506 Given 01/21/2023 3:06 PM EDT 2 mg Right Inactive Administered Medications - up to 3 most recent administrations Medication Order MAR Action Action Date Dose Rate Site aflibercept intravitreal injection 2 mg/0.05 mL (EYLEA) 2 mg, ONE TIME INJECTION, 1 dose, Starting on Mel 05/27/23 at 1107, Until Mel 05/27/23 at 1107 Given 05/27/2023 11:07 AM EDT 2 mg Right Inactive Administered Medications - up to 3 most recent administrations Medication Order MAR Action Action Date Dose Rate Site aflibercept intravitreal injection 2 mg/0.05 mL (EYLEA) 2 mg, ONE TIME INJECTION, 1 dose, Starting on Mel 07/29/23 at 1152, Until Mel 07/29/23 at 1152 Given 07/29/2023 11:52 AM EDT 2 mg Right fluorescein-benoxinate 0.25-0.4 % 1 Drop (FLURESS) 1 Drop, BOTH EYES, DIRECTED, Starting on Mel 07/29/23 at 1030, Until Mel 07/29/23 at 2229, Administer for applanation tonometry. In the event of a Fluress shortage, administer Demi-Fluor 1 drop into both eyes as directed for applanation tonometry, [facility] MED ORDERS Given 07/29/2023 10:30 AM EDT 1 Drop PHENYLephrine 2.5 % 1 Drop (AK-DILATE, PAVAN-SYNEPHRINE) 1 Drop, BOTH EYES, DIRECTED, Starting on Mel 07/29/23 at 1030, Until Mel 07/29/23 at 2229, Administer for dilation PROTECT FROM LIGHT, [facility] MED ORDERS Given 07/29/2023 10:30 AM EDT 1 Drop proparacaine 0.5 % 1 Drop (ALCAINE) 1 Drop, BOTH EYES, DIRECTED, Starting on Mel 07/29/23 at 1030, Until Mel 9/21/23 at 2229, Administer for pneumo tonometry, tonopen tonometry, or pachymetry. In the event of a proparacaine shortage, administer tetracaine 0.5% ophthalmic drops 1 drop in both eyes as directed for pneumo tonometry, tonopen tonometry, or pachymetry, [facility] MED ORDERS Given 07/29/2023 10:30 AM EDT 1 Drop tropicamide 1 % 1 Drop (MYDRIACYL) 1 Drop, BOTH EYES, DIRECTED, Starting on Mel 07/29/23 at 1030, Until Mel 07/29/23 at 2229, Administer for dilation, [facility] MED ORDERS Given 07/29/2023 10:30 AM EDT 1 Drop Inactive Administered Medications - up to 3 most recent administrations Medication Order MAR Action Action Date Dose Rate Site aflibercept intravitreal injection 2 mg/0.05 mL (EYLEA) 2 mg, ONCE, 1 dose, Starting on Mel 09/23/23 at 1507, Until Mel 09/23/23 at 1507 Given 09/23/2023 3:07 PM EST 2 mg R ight Summary Purpose Family History No Family History Records FoundNo Family History Records FoundNo Family History Records Found Additional Source Comments Goals (unrecognized section and content) Goals may be documented in a n alternate sectionGoals may be documented in an alternate sectionGoals may be documented in an alternate section Source Comments (unrecognize d section and content) In the event this informatio n is protected by the Federal Confidentiality of Alcohol and Drug Abuse Patient Records regulations: The Federal rules restrict any use of the information to criminally investigate or prosecute any alcohol or drug abuse patient.[facility] event this information is protected by the Federal Confidentiality of Alcohol and Drug Abuse Patient Records regulations: The Federal rules restrict any use of the information to criminally investigate or prosecute any alcohol or drug abuse patient.[facility] the event this information is protected by the Federal Confidentiality of Alcohol and Drug Abuse Patient Records regulations: The Federal rules restrict any use of the information to criminally investigate or prosecute any alcohol or drug abuse patient.[facility] the event this information is protected by the Federal Confidentiality of Alcohol and Drug Abuse Patient Records regulations: The Federal rules restrict any use of the information to criminally investigate or prosecute any alcohol or drug abuse patient.[facility] the event this information is protected by the Federal Confidentiality of Alcohol and Drug Abuse Patient Records regulations: The Federal rules restrict any use of the information to criminally investigate or prosecute any alcohol or drug abuse patient.[facility] the event this information is protected by the Federal Confidentiality of Alcohol and Drug Abuse Patient Records regulations: The Federal rules restrict any use of the information to criminally investigate or prosecute any alcohol or drug abuse patient.[facility] the event this information is protected by the Federal Confidentiality of Alcohol and Drug Abuse Patient Records regulations: The Federal rules restrict any use of the information to criminally investigate or prosecute any alcohol or drug abuse patient.[facility] HospitalIn the event this information is protected by the Federal Confidentiality of Alcohol and Drug Abuse Patient Records regulations: The Federal rules restrict any use of the information to criminally investigate or prosecute any alcohol or drug abuse patient.[facility]In the event this information is protected by the Federal Confidentiality of Alcohol and Drug Abuse Patient Records regulations: The Federal rules restrict any use of the information to criminally investigate or prosecute any alcohol or drug abuse patient.[facility]In the event this information is protected by the Federal Confidentiality of Alcohol and Drug Abuse Patient Records regulations: The Federal rules restrict any use of the information to criminally investigate or prosecute any alcohol or drug abuse patient.[facility] HospitalIn the event this information is protected by the Federal Confidentiality of Alcohol and Drug Abuse Patient Records regulations: The Federal rules restrict any use of the information to criminally investigate or prosecute any alcohol or drug abuse patient.[facility]In the event this information is protected by the Federal Confidentiality of Alcohol and Drug Abuse Patient Records regulations: The Federal rules restrict any use of the information to criminally investigate or prosecute any alcohol or drug abuse patient.[facility] HospitalIn the event this information is protected by the Federal Confidentiality of Alcohol and Drug Abuse Patient Records regulations: The Federal rules restrict any use of the information to criminally investigate or prosecute any alcohol or drug abuse patient.[facility]In the event this information is protected by the Federal Confidentiality of Alcohol and Drug Abuse Patient Records regulations: The Federal rules restrict any use of the information to criminally investigate or prosecute any alcohol or drug abuse patient.[facility]In the event this information is protected by the Federal Confidentiality of Alcohol and Drug Abuse Patient Records regulations: The Federal rules restrict any use of the information to criminally investigate or prosecute any alcohol or drug abuse patient.[facility] HospitalIn the event this information is protected by the Federal Confidentiality of Alcohol and Drug Abuse Patient Records regulations: The Federal rules restrict any use of the information to criminally investigate or prosecute any alcohol or drug abuse patient.[facility] HospitalIn the event this information is protected by the Federal Confidentiality of Alcohol and Drug Abuse Patient Records regulations: The Federal rules restrict any use of the information to criminally investigate or prosecute any alcohol or drug abuse patient.[facility] HospitalIn the event this information is protected by the Federal Confidentiality of Alcohol and Drug Abuse Patient Records regulations: The Federal rules restrict any use of the information to criminally investigate or prosecute any alcohol or drug abuse patient.[facility] HospitalIn the event this information is protected by the Federal Confidentiality of Alcohol and Drug Abuse Patient Records regulations: The Federal rules restrict any use of the information to criminally investigate or prosecute any alcohol or drug abuse patient.[facility]In the event this information is protected by the Federal Confidentiality of Alcohol and Drug Abuse Patient Records regulations: The Federal rules restrict any use of the information to criminally investigate or prosecute any alcohol or drug abuse patient.[facility] HospitalIn the event this information is protected by the Federal Confidentiality of Alcohol and Drug Abuse Patient Records regulations: The Federal rules restrict any use of the information to criminally investigate or prosecute any alcohol or drug abuse patient.[facility] HospitalIn the event this information is protected by the Federal Confidentiality of Alcohol and Drug Abuse Patient Records regulations: The Federal rules restrict any use of the information to criminally investigate or prosecute any alcohol or drug abuse patient.[facility] HospitalIn the event this information is protected by the Federal Confidentiality of Alcohol and Drug Abuse Patient Records regulations: The Federal rules restrict any use of the information to criminally investigate or prosecute any alcohol or drug abuse patient.[facility] HospitalIn the event this information is protected by the Federal Confidentiality of Alcohol and Drug Abuse Patient Records regulations: The Federal rules restrict any use of the information to criminally investigate or prosecute any alcohol or drug abuse patient.[facility] HospitalIn the event this information is protected by the Federal Confidentiality of Alcohol and Drug Abuse Patient Records regulations: The Federal rules restrict any use of the information to criminally investigate or prosecute any alcohol or drug abuse patient.[facility] HospitalIn the event this information is protected by the Federal Confidentiality of Alcohol and Drug Abuse Patient Records regulations: The Federal rules restrict any use of the information to criminally investigate or prosecute any alcohol or drug abuse patient.[facility] HospitalIn the event this information is protected by the Federal Confidentiality of Alcohol and Drug Abuse Patient Records regulations: The Federal rules restrict any use of the information to criminally investigate or prosecute any alcohol or drug abuse patient.[facility] HospitalIn the event this information is protected by the Federal Confidentiality of Alcohol and Drug Abuse Patient Records regulations: The Federal rules restrict any use of the information to criminally investigate or prosecute any alcohol or drug abuse patient.[facility] HospitalIn the event this information is protected by the Federal Confidentiality of Alcohol and Drug Abuse Patient Records regulations: The Federal rules restrict any use of the information to criminally investigate or prosecute any alcohol or drug abuse patient.[facility] HospitalIn the event this information is protected by the Federal Confidentiality of Alcohol and Drug Abuse Patient Records regulations: The Federal rules restrict any use of the information to criminally investigate or prosecute any alcohol or drug abuse patient.[facility] HospitalIn the event this information is protected by the Federal Confidentiality of Alcohol and Drug Abuse Patient Records regulations: The Federal rules restrict any use of the information to criminally investigate or prosecute any alcohol or drug abuse patient.[facility] HospitalIn the event this information is protected by the Federal Confidentiality of Alcohol and Drug Abuse Patient Records regulations: The Federal rules restrict any use of the information to criminally investigate or prosecute any alcohol or drug abuse patient.[facility] HospitalIn the event this information is protected by the Federal Confidentiality of Alcohol and Drug Abuse Patient Records regulations: The Federal rules restrict any use of the information to criminally investigate or prosecute any alcohol or drug abuse patient.[facility] HospitalIn the event this information is protected by the Federal Confidentiality of Alcohol and Drug Abuse Patient Records regulations: The Federal rules restrict any use of the information to criminally investigate or prosecute any alcohol or drug abuse patient.[facility] Reason for Visit (unrecogniz ed section and content) Reason Comments Exudative Macular Degeneration Follow Up Reason Comments Exudative Macular Degeneration Follow Up Bilateral Reason Comments Exudative Macular Degeneration Follow Up Bilateral Reason Comments Yearly Exam Reason Comments Ovarian Cyst Reason Comments Results Reason Comments Macular Degeneration Follow Up Exudative Both Eyes Reason Comments 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 macular degenerati on of both eyes wit Reason Comments Patient Question Reason Comments Exudative Macular Degeneration Follow Up Both eyes Blurred Vision Both Eyes continues Pseudophakia Both eyes Reason Comments Exudative Macular Degeneration Follow Up Both eyes Reason Onset Date Comments Orders 05/24/2024 [facility] Lab Orders 05/24/2024 CA 125 BLD Reason Comments Orders Reason Comments Follow Up Reason Comments Exudative Macular Degeneration Follow Up Both eyes Care Teams (unrecognized sec tion and content) Clay Artisan Relationship Specialty Start Date End Date Td Garcia CNP [address] [place] [address] PCP - General Family Practice 08/28/21 Clay Artisan Relationship Specialty Start Date End Date Td Garcia CNP [address] [place] [address] PCP - General Family Practice 08/28/21 Clay Artisan Relationship Specialty Start Date End Date Td Garcia Elmer [employer] [address] [place] [address] PCP - General Family Practice 08/28/21 Clay Artisan Relationship Specialty Start Date End Date Td Garcia, [employer] IN[employer] [address] [place] [address] PCP - General Family Practice 08/28/21 Clay Artisan Relationship Specialty Start Date End Date JeffneilaTd fernandes Elmer, [employer] IN[employer] [address] [place] [address] PCP - General Family Practice 08/28/21 Clay Artisan Relationship Specialty Start Date End Date JeffneliaTd fernandes Elmer, [employer] IN[employer] [address] [place] [address] PCP - General Family Practice 08/28/21 Clay Artisan Relationship Specialty Start Date End Date JeffneliaTd fernandes Elmer, [employer]INTER INST[employer]ER [address] [place] [address] PCP - General Family Medicine 08/28/21 Clay Artisan Relationship Specialty Start Date End Date Td Garcia Elmer [employer] [address] [place] [address] PCP - General Family Medicine 08/28/21 Clay Artisan Relationship Specialty Start Date End Date Jeffneliadena Td Elmer [employer] [address] [place] [address] PCP - General Family Medicine 08/28/21 Clay Artisan Relationship Specialty Start Date End Date Jeffneliadena Td Lee, [employer] IN[employer] [address] [place] [address] PCP - General Family Medicine 08/28/21 Clay Artisan Relationship Specialty Start Date End Date Td Garcia, [employer] [address] [place] [address] PCP - General Family Medicine 08/28/21 Clay Artisan Relationship Specialty Start Date End Date Td Garcia, [employer] [address] [place] [address] PCP - General Family Medicine 08/28/21 Clay Artisan Relationship Specialty Start Date End Date Td Gracia Elmer, [employer] IN[employer] [address] [place] [address] PCP - General Family Medicine 08/28/21 Clay Artisan Relationship Specialty Start Date End Date Darion El [address] [place] [address] PCP - General Family Medicine 03/25/23 Clay Artisan Relationship Specialty Start Date End Date Darion El [address] [place] [address] PCP - General Family Medicine 03/25/23 Clay Artisan Relationship Specialty Start Date End Date Darion El [address] [place] [address] PCP - General Family Medicine 03/25/23 Clay Artisan Relationship Specialty Start Date End Date Darion El [address] [place] [address] PCP - General Family Medicine 03/25/23 Clay Artisan Relationship Specialty Start Date End Date Darion El MD [address] [place] [address] PCP - General Family Medicine 03/25/23 Clay Artisan Relationship Specialty Start Date End Date Darion El MD [address] [place] [address] PCP - General Family Medicine 03/25/23 Clay Artisan Relationship Specialty Start Date End Date Darion El MD [address] [place] [address] PCP - General Family Medicine 03/25/23 Clay Artisan Relationship Specialty Start Date End Date Rima Corral [address] [place] [address] PCP - General 01/27/24 Clay Artisan Relationship Specialty Start Date End Date Rima Corral [address] [place] [address] PCP - General 01/27/24 Clay Artisan Relationship Specialty [place] [address] [place] [address] PCP - General 01/27/24 Clay Artisan Relationship Specialty [place] [address] [place] [address] PCP - General 01/27/24 Clay Artisan Relationship Specialty Start Date End Date Rima Corral [employer] [address] [place] [address] PCP - General 01/27/24 Clay Artisan Relationship Specialty Start Date End Date Rima Corral, RICHARD [address] [place] [address] PCP - General 01/27/24 Clay Artisan Relationship Specialty [place] [address] [place] [address] PCP - General 01/27/24 Clay Artisan Relationship Specialty [place] [address] [place] [address] PCP - General 01/27/24 Clay Artisan Relationship Specialty [place] [address] [place] [address] PCP - General 01/27/24 Clay Artisan Relationship Specialty [place] [address] [place] [address] PCP - General 01/27/24 Clay Artisan Relationship Specialty [place] [address] [place] [address] PCP - General 01/27/24 Clay Artisan Relationship Specialty [place] [address] [place] [address] PCP - General 01/27/24 Clay Artisan Relationship Specialty [place] [address] [place] [id number] PCP - General 01/27/24 Active Administered Medications - up to 3 most recent administrations Administered Medications (un recognized section and content) Medication Order MAR Action Action Date Dose Rate Site PHENYLephrine 2.5 % 1 Drop (AK-DILATE, PAVAN-SYNEPHRINE) 1 Drop, BOTH EYES, DIRECTED, Starting on Mel 01/27/24 at 1030, Until Mel 01/27/24 at 2229, Administer for dilation PROTECT FROM LIGHT, OPHT CLINIC MED ORDERS Given 01/27/2024 10:30 AM EDT 1 Drop proparacaine 0.5 % 1 Drop (ALCAINE) 1 Drop, BOTH EYES, DIRECTED, Starting on Mel 01/27/24 at 1030, Until Mel 01/27/24 at 2229, Administer for pneumo tonometry, tonopen tonometry, or pachymetry. In the event of a proparacaine shortage, administer tetracaine 0.5% ophthalmic drops 1 drop in both eyes as directed for pneumo tonometry, tonopen tonometry, or pachymetry, OPHT CLINIC MED ORDERS Given 01/27/2024 10:30 AM EDT 1 Drop tropicamide 1 % 1 Drop (MYDRIACYL) 1 Drop, BOTH EYES, DIRECTED, Starting on Mel 01/27/24 at 1030, Until Mel 01/27/24 at 2229, Administer for dilation, OPHT CLINIC MED ORDERS Given 01/27/2024 10:30 AM EDT 1 Drop Inactive Administered Medications - up to 3 most recent administrations Medication Order MAR Action Action Date Dose Rate Site aflibercept intravitreal injection 2 mg/0.05 mL (EYLEA) 2 mg, ONCE, 1 dose, Starting on Mel 01/27/24 at 1136, Until Mel 01/27/24 at 1136 Given 01/27/2024 11:36 AM EDT 2 mg R ight INFORMATION SOURCE (unrecogn ized section and content) DATE CREATED AUTHOR 08/04/2024 [facility] DATE CREATED AUTHOR AUTHOR'S ORGANIZ ATION 06/30/2025 [facility] DATE CREATED AUTHOR AUTHOR'S ORGANIZ ATION 09/20/2025 [facility] FOR RECORDS PERTAINING TO PATIENTS WHO ARE OR HAVE BEEN ENROLLED IN A CHEMICAL DEPENDENCY/SUBSTANCEABUSE PROGRAM, SOME INFORMATION MAY BE OMITTED. This clinical summary was aggregated from multiple sources. Caution should be exercised in using it in the provision of clinical care. This summary normalizes information from multiple sources, and as a consequence, information in this document may materially change the coding, format and clinical context of patient data. In addition, data may be omitted in some cases. CLINICAL DECISIONS SHOULD BE BASED ON THE PRIMARY CLINICAL RECORDS. [facility] [employer] [facility]. provides no warranty or guarantee of the accuracy or completeness of information in this document.
--- NOTE | 2025-10-19 06:23 | EKG12_ITS ---
Test Reason : PRE OP Blood Pressure : */* mmHG Vent. Rate : 66 BPM Atrial Rate : 66 BPM P-R Int : 152 ms QRS Dur : 110 ms QT Int : 398 ms P-R-T Axes : 45 5 12 degrees QTcB Int : 417 ms Normal sinus rhythm Low voltage QRS Incomplete right bundle branch block Borderline ECG Confirmed by HELLEN LAM, NATHANIEL ([id number]), editor city [place] ([id number]) on 10/23/2025 1:19:25 PM Referred By: Rita Chowdary Confirmed By: NATHANIEL MACEDO MD
[2025-10-19] MEDS: Lactated Ringers 1,000 ML 15 ML IV (06:56)
--- NOTE | 2025-10-19 07:01 | PRE.ANES_ITS ---
ASA Classification* ASA Classification ASA Classification: 2 Assessment & Plan Anesthesia* Anesthesia Assessment Anesthesia Assessment: Discussed sedation and/or anesthesia options, risks, benefits, and alternatives with patient/parents/legal guardian/POA. Questions invited. The patient/parents/legal guardian/POA seems to understand and agrees to proceed with anesthesia plan. Reviewed the physical assessment, medical history, allergy history and patient home medications list prior to surgery/procedure/anesthetic and documented any changes. Performed airway and anesthesia risk assessments. Anesthesia Type Anesthesia Type: MAC Anesthesia Focused Assessment* Temperature: 97.6 F Pulse Rate: 74 Blood Pressure: 146/67 Respiratory Rate: 18 Pulse Ox: 97 Airway Assessment Mouth opens: >3 cm Mallampati Score: II Labs Anesthesia Preop lab: CBC WBC, (4.4-11.0) 6.3 K/mm3 07/11/24, 11:06 RBC, (4.2-5.4) 4.12 M/mm3 L 07/11/24, 11:06 Hgb, (12.0-15.0) 12.9 g/dL 07/11/24, 11:06 Hct, (37-47) 40.6 % 07/11/24, 11:06 Plt Count, (150-450) 252 K/mm3 07/11/24, 11:06 CHEMISTRY Potassium, (3.5-5.1) 4.5 mmol/L 07/11/24, 11:06 Sodium, (136-145) 138 mmol/L 07/11/24, 11:06 BUN, (7-18) 14 mg/dL 07/11/24, 11:06 Creatinine, (0.55-1.02) 0.93 mg/dL 07/11/24, 11:06 Glucose, (74-106) 93 mg/dL 07/11/24, 11:06 TSH, (0.358-3.74) 0.23 uIU/mL L 04/17/22, 11:18 COAG Pre-Assessment Diagnosis/Proposed Procedure Planned Operative Procedure(s): Hysteroscopy,D&C Symphion Anesthesia History Anesthesia History - web search evaluator: Anesthesia History - web search evaluator Hx Hospitalization No 10/10/25 14:32 Any Problems With Anesthesia No 10/10/25 14:32 Cholinesterase deficiency No 10/10/25 14:32 You/Your Family Experience No 10/10/25 14:32 fever (hyperthermia) with Relationship Recent Exposure to Contagious No 10/19/25 06:41 Disease Does patient have nerve No 10/10/25 14:32 stimulator Patient instructed to have device shut off --Does patient have Pacemaker No 10/19/25 06:41 or ICD? When Was Last Pacemaker Check QUESTION #4 FULL TEXT: You/Your Family Experience fever (hyperthermia) with Anesthesia Last Oral Intake Last Oral intake: Last Oral Intake NPO since 03:30 10/19/25 06:41 Meds taken in AM with sips of No 10/19/25 06:41 water? Meds patient instructed to take am of surgery PONV PONV - web search evaluator: PONV - web search evaluator Female Yes 10/10/25 14:32 HX of Motion Sickness No 10/10/25 14:32 HX of N/V After Surgery No 10/10/25 14:32 Non-Smoker No 10/10/25 14:32 Duration of Surgery greater No 10/10/25 14:32 than 60 minutes Number of Risk Factors 1 10/10/25 14:32 PONV Score Low Risk 10/10/25 14:32 Height & Weight Height & Weight: Anesthesia: Height & Weight Height 5 ft 10/19/25 06:41 Weight: 87 kg 10/19/25 06:41 Body Mass Index (BMI) 37.4 10/19/25 06:41 Respiratory Assessment Respiratory Assessment - web search evaluator: Respiratory Tract Infection Hx - web search evaluator Hx Respiratory Tract Infection No 10/10/25 14:32 STOP Sleep Apnea STOP Sleep Apnea - web search evaluator: STOP Sleep Apnea - web search evaluator Hx Hypertension No 10/10/25 14:32 Hx Sleep Apnea No 10/10/25 14:32 CPAP BIPAP Do you snore loudly (louder No 10/10/25 14:32 than talking or can be heard Do you often feel tired/ No 10/10/25 14:32 fatigued/ sleepy during daytime? Has anyone observed you stop No 10/10/25 14:32 breathing during sleep? STOP Results Negative 10/10/25 14:32 QUESTION #5 FULL TEXT : Do you snore loudly (louder than talking or can be heard through closed doors)? Tobacco Use History Tobacco Use History - web search evaluator: Tobacco Use History - web search evaluator Tobacco Use Non-smoker 03/08/21 14:23 Smoking Status Never smoker 10/10/25 14:32 Hx Tobacco Use No 10/10/25 14:32 Years Smoking Packs Smoked per Day Smoking Cessation Date was within the last 15 years Hx Smoking Cessation Date Hx Smoking Cessation Counseling Hematologic Medial History Hematologic Hx - web search evaluator: Hematologic Medical Hx - regional education coordinator Hx of Blood Transfusion No 10/10/25 14:32 Hx of Transfusion in last 3 No 10/10/25 14:32 Months Date of Last Transfusion (if within last 3 months) Ever experience any problems No 10/10/25 14:32 with transfusion(s)? Specify any problems Hx of Preganancy in last 3 No 10/10/25 14:32 Months Nurse Filling Out Transfusion VCHRISTIN 10/10/25 14:32 & Questions: Date: 10/10/25 10/10/25 14:32 Time: 14:33 10/10/25 14:32 Patient unable to answer at this time (ie. confused, unrespo /Reproduction History /Reproductive History - web search evaluator: /Reproductive Hx- web search evaluator Hx Now No 10/10/25 14:32 Gestational Age (in weeks): EDC: Hx Hx Para Hx Section SAB No 10/10/25 14:32 Does the father of the baby or his family experience fever w Father of the baby Malignant Hypertension history comment Active Medications Active Medications: Current Medications Generic Name Dose Route Start Last Admin Trade Name Freq PRN Reason Stop Dose Admin Lactated Ringer's 1,000 mls @ 15 mls/hr 10/19/25 06:30 10/19/25 06:56 IV 15 mls/hr .Q48H MARIA TERESA Administration PFSH Medical History Wears dentures Post-menopausal Cancer Depression Thyroid disease Walker as ambulation aid Rheumatoid arthritis Arthritis Non-smoker Shortness of breath on exertion Hypothyroidism Anxiety Rheumatoid arthritis Home Medications ?Medication ?Instructions ?Recorded ?Last Taken ?Type levothyroxine 125 mcg tablet 125 mcg PO DAILY 03/26/18 10/19/25 History lorazepam 1 mg tablet 1 mg PO TID PRN PRN Anxiety 03/26/18 Unknown History tramadol 50 mg tablet 100 mg PO Q4H PRN PRN Pain 0 03/26/18 10/18/25 History leucovorin calcium 15 mg tablet 15 mg PO QWEEK 5 10/16/25 History methotrexate sodium 25 mg/mL 2 mg IM QWEEK 10/10/25 History injection solution Allergy/AdvReac Type Severity Reaction Status Date / Time No Known Allergies Allergy Verified 10/19/25 06:41 Surgical History Hx of bilateral cataract extraction History of total knee replacement (TKR) History of lumpectomy of right breast History of cholecystectomy Social History Smoking Status: Never smoker Review of Systems (Anesthesia) ROS Narrative System reviewed and no additional complaints, except as documented.
--- NOTE | 2025-10-19 07:30 | EMB_PTH ---
PATIENT: MIKALYA RODRIGUEZ LOC: [facility] [place] U#:[id number] AGE/SX: 75/F ROOM: RE10/19/[address]: Dr. Rita Chowdary MD : [id number] BED: DIS: 10/19/2025 SPEC #: [id number] RECD: 10/19/25 09:52 STATUS: ANDRE RETasneem #: [id number] IRMA: 10/19/25 07:[address]: Rita Chowdary DEPT: SURGICAL PATHOLOGY RECD BY: Charlie Hinds Tissues: A - Endometrium, NOS Procedures: Surgery Specimen Level IV HEADER OPERATION: Hysteroscopy, D&C, Pap smear PRE-OP DIAGNOSIS: Endometrial polyp TISSUE SUBMITTED: A- Endometrial curettings MICROSCOPIC DIAGNOSIS A. Endometrium, curettage: - Scant endocervical, squamous, and lower uterine segment tissue - see note. - Few superficial strips of epithelium consistent with atrophic endometrium. Note: The lower uterine segment-type tissue demonstrates a polypoid configuration, measuring up to 0.3 cm. However, overall, there is a very limited amount of tissue recovered after processing. Recommend clinical correlation to assess the adequacy of this sampling. MICROSCOPIC DESCRIPTION Slides are reviewed. GROSS DESCRIPTION A. Received in formalin labeled with the patient's name and date of . Designated as endometrial curettings is a minimal amount of mucoid material admixed with flecks of pink apparent tissue, 1.0 x 0.7 x 0.1 cm in aggregate. Entirely submitted in 1 cassette. Entirety of the specimen unlikely to survive processing. OR 10/19/2025 CPT:07778
[2025-10-19] MEDS: Lactated Ringers 500 ML IV (07:39)
[2025-10-19] MEDS: Lidocaine 1% (5 ml sdv) 5 ML Vial IV (07:46)
[2025-10-19] MEDS: fentaNYL 100 MCG/2 ML Ampul IV (07:58)
[2025-10-19] MEDS: 0.9% Normal Saline (Pres. free 10 ML Vial (08:01)
--- NOTE | 2025-10-19 08:17 | PCM.POST.ANE ---
Anesthesia: Postop Eval I Current Vital Signs Temperature: 97.4 F Pulse Rate: 74 Blood Pressure: 121/61 Respiratory Rate: 12 Pulse Ox: 96 Oxygen Delivery Method: Room Air Assessment Airway patent: Yes Spontaneous unlabored respirations: Yes Mental status: Awake and Calm nausea: No Vomiting: No Anesthesia Complication: No Fluid Hydration Crystalloid volume administer (ml): 500 Total IV fluid infused: 500 Progress Note Anesthesia document: Postop Eval 1 completed: Yes
--- NOTE | 2025-10-19 08:18 | OP.PCM_ITS ---
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 Type of Anesthesia: MAC/Supplemental/Local RN Documented Start/Stop Times: Operation Date: 10/19/25 07:30 Case Time Into Pre-Op 10/19/25 06:26 Out of Pre-Op 10/19/25 07:35 Anesthesia Start 10/19/25 07:39 Into Room 10/19/25 07:39 Procedure Start 10/19/25 07:49 Procedure End 10/19/25 08:08 Anesthesia End 10/19/25 08:14 Out of Room 10/19/25 08:14 Into Recovery 10/19/25 08:15 Procedure Start Time: 07:49 Procedure Stop Time: 08:08 Select all DRAINS/GRAFTS/IMPLANTS that apply: None Special Medications: 5 units dilute vasopressin injected into the cervix Estimated Blood Loss: 5cc Fluids Replaced: 500 cc Specimen collected: Yes Description of specimen(s) removed: endometrial curettings Description of surgery: The patient was taken to the OR where she was prepped and draped in dorsal lithotomy position. The weighted speculum was placed in the vagina and the anterior lip of the cervix was grasped with a single-tooth tenaculum. A paracervical block was administered with dilute vasopressin solution and injectable saline. 5 units of vasopressin were injected. The cervix was dilated serially with Hegar dilators. The Symphion hysteroscope was placed into the uterine cavity and the above findings were noted. Bilateral tubal ostia [were] identified. The hysteroscope was removed. A gentle sharp curettage was done of the uterine cavity. The instruments were removed from the vagina. The specimen was handed off and sent to pathology. All sponge and needle counts were correct. Vaginal sweep was performed by me. The patient was awakened and taken to the recovery room in stable condition. Hysteroscopic fluid deficit calculated to be 150 cc of normal saline. Surgical Findings: steronitic cervix, atrophic endometrium, normal vagina Complications Complications: No Admit VTE Documentation VTE Present on Admission: No VTE Mechan Device Prophylaxis: SCD's VTE Pharm Prophylaxis ordered?: No Reason prophylaxis not ordered: Procedure Not Indicated
--- NOTE | 2025-10-19 08:25 | PCM.DC ---
Discharge Instructions DC O2, CPAP, BIPAP needs Home O2 Discharge instructions: No Dressing / Incision Return to work on:: 10/22/25 May shower in (days): 1 May resume sexual activity in: 1 week Lifting Restrictions: none Dressing / Incision Call your doctor if your incision/area has: Sudden Increased Bleeding and Foul Smelling Discharge Call your doctor if you observe: Fever of 101 or Higher and Using more than 1 pad per hour (for 2 hrs in a row) Follow Up Care Please Follow Up With: Rita Chowdary MD When: You do not need a postop visit. WE will contact you with your pathology results in 1-2 weeks. If you have a question or concerns send a [employer] message or call [phone]. Test Results: Test results from this visit will be discussed in further detail at your follow-up appointment, if applicable. Discharge Plan Admission Primary Reason for Your Visit: Hysteroscopy D&C Attending Provider: Rita Chowdary Primary Care Provider: Rima Corral Instructions Print Language: Paraguayan Discharge Orders/Prescriptions Prescriptions: No Action tramadol 50 MG tablet 100 mg PO Q4H PRN PRN (Reason: Pain) levothyroxine 125 MCG tablet 125 mcg PO DAILY lorazepam 1 MG tablet 1 mg PO TID PRN PRN (Reason: Anxiety) methotrexate sodium 25 mg/mL solution 2 mg IM QWEEK Patient Comments: [NO ORIGINAL SIG] leucovorin calcium 15 mg tablet 15 mg PO QWEEK Referrals / Follow Up: Rima Corral, [facility] [Primary Care Provider, Medical] Disposition Disposition (needs filled in before D/C Order can be placed): Home, Self Care
--- NOTE | 2025-10-19 09:11 | POSTOPAN2_ITS ---
Anesthesia Postop Eval I Sum Postop Eval Completion status Anesthesia document: Postop Eval 1 completed: Yes Anesthesia Postop Eval I Summary Anesthesia Postop Eval I Summary: Anesthesia Postop Eval I: Assessment Summary Airway patent Yes 10/19/25 08:18 DIRECT MARKETING SPECIALIST.SHOF Spontaneous unlabored Yes 10/19/25 08:18 DIRECT MARKETING SPECIALIST.SHOF respirations Mental status Awake,Calm 10/19/25 08:18 DIRECT MARKETING SPECIALIST.SHOF nausea No 10/19/25 08:18 DIRECT MARKETING SPECIALIST.SHOF Vomiting No 10/19/25 08:18 DIRECT MARKETING SPECIALIST.SHOF Anesthesia Postop Eval I: Fluid Summary Crystalloid volume administer 500 10/19/25 08:18 DIRECT MARKETING SPECIALIST.SHOF (ml) Colloids volume administered ( ml) Blood Product volume administered (ml) Total IV fluid infused 500 10/19/25 08:18 DIRECT MARKETING SPECIALIST.SHOF Anesthesia Postop Eval I: Summary Notes Anesthesia Complication No 10/19/25 08:18 DIRECT MARKETING SPECIALIST.SHOF Anesthesia Complication Comment: Post-operative progress note Anesthesia: Postop Eval II Evaluation Mental status: Awake Pain Level: 0 nausea: No Vomiting: No
--- NOTE | 2025-10-19 09:11 | PCM.POSTANE2 ---
Anesthesia Postop Eval I Sum Postop Eval Completion status Anesthesia document: Postop Eval 1 completed: Yes Anesthesia Postop Eval I Summary Anesthesia Postop Eval I Summary: Anesthesia Postop Eval I: Assessment Summary Airway patent Yes 10/19/25 08:18 CALENDER OPERATOR.SHOF Spontaneous unlabored Yes 10/19/25 08:18 CALENDER OPERATOR.SHOF respirations Mental status Awake,Calm 10/19/25 08:18 CALENDER OPERATOR.SHOF nausea No 10/19/25 08:18 CALENDER OPERATOR.SHOF Vomiting No 10/19/25 08:18 CALENDER OPERATOR.SHOF Anesthesia Postop Eval I: Fluid Summary Crystalloid volume administer 500 10/19/25 08:18 CALENDER OPERATOR.SHOF (ml) Colloids volume administered ( ml) Blood Product volume administered (ml) Total IV fluid infused 500 10/19/25 08:18 CALENDER OPERATOR.SHOF Anesthesia Postop Eval I: Summary Notes Anesthesia Complication No 10/19/25 08:18 CALENDER OPERATOR.SHOF Anesthesia Complication Comment: Post-operative progress note Anesthesia: Postop Eval II Evaluation Mental status: Awake Pain Level: 0 nausea: No Vomiting: No
[2025-10-23 14:09] LABS: HPV APTIMA, High Risk Negative (Negative)
== END 2025-10-19 09:46 | disposition home or self-care (01) ==
LOC: SDC 05:58 → AC 06:00
PROVIDERS: PCP Nurse Practitioner Family; Referring Provider Obstetrics & Gynecology; Visit Provider Obstetrics & Gynecology
PROC: 0UB98ZZ Excision of Uterus, Via Natural or Artificial Opening Endoscopic (ICD-10-PCS; CPT 58558; principal; 2025-10-19 07:15)
DX: N84.0 Polyp of corpus uteri (principal); Z87.891 Personal history of nicotine dependence; R93.89 Abnormal findings on diagnostic imaging of other specified body structures; E03.9 Hypothyroidism, unspecified; Z79.890 Hormone replacement therapy
CPT/HCPCS: 58558; 00952; 87624; 88175; 88305; 93005; G0145